=== PATIENT | male | born 1950 | race Caucasian/White ===

== ENCOUNTER 2016-07-20 08:30 | Inpatient (IN) | payer MEDICARE ==
[~2016-07-20] VITALS: Ht 182.9 cm; Wt 125.0 kg
[2016-07-20] VITALS (20 sets, daily range): BP systolic 100–192; BP diastolic 65–116; PULSE 79–101; RESP 17–24; TEMP 97.9–98.6; O2SAT 76–97
[~2016-07-20 08:30] MED LIST: ALLO300T2 PO; ASPI-110 PO; BACL10TA PO; CALC250 PO; CARV3.12 PO; ESCI10TA PO; FISH100020 PO; GABA100C4 PO; HOSPITAL BED SEMI; HYDR-3583 PO; LISI10TA3 PO; NYST15T TOPICAL; PRAV10TA PO; THERM PO; TIZA4CAP3 PO
[2016-07-20] MEDS ORDERED: PROT40TA PO (09:06)
[2016-07-20] MEDS ORDERED: methylPREDNISolone SOD SUCC 125 MG/2 ML VIAL IVP ONE (09:15)
[2016-07-20] MEDS: SODIUM CHLORIDE 0.9% FLUSH 5 ML FLUSH IVF PRN ×2 (09:24→20:50)
[2016-07-20 09:27] LABS: AUTOMATED NEUTROPHIL # 8.2 TH/MM3 (1.8-7.7); BASOPHIL % 0.5 % (0.0-2.0); EOSINOPHIL # 0.4 TH/MM3 (0-0.4); EOSINOPHIL % 3.5 % (0.0-4.0); HEMATOCRIT 42.9 % (39.0-51.0); HEMO FLAGS DIFF FINAL; LYMPH % 8.9 % (9.0-44.0); LYMPHOCYTE # 0.9 TH/MM3 (1.0-4.8); MEAN CELL VOLUME 83.8 FL (80.0-100.0); MEAN CORPUSCULAR HGB CONC 32.2 % (32.0-36.0); MONO % 8.4 % (0.0-8.0); NEUT % 78.7 % (16.0-70.0); PLATELET COUNT 236 TH/MM3 (150-450); RED BLOOD COUNT 5.11 MIL/MM3 (4.50-5.90); RED CELL DISTRIBUTION WIDTH 18.5 % (11.6-17.2); WHITE BLOOD COUNT 10.5 TH/MM3 (4.0-11.0)
[2016-07-20] MEDS: RESP: ALBUTEROL 2.5 MG/IPRATROPIUM 0.5 MG NEB (SCH) INH ×2 (09:36→09:37)
[2016-07-20 09:41] LABS: PROTHROMBIN TIME - PATIENT 11.3 SEC (9.8-11.6)
[2016-07-20 09:42] LABS: ANION GAP 8 MEQ/L (5-15); APTT (PATIENT) 25.7 SEC (24.3-30.1); AST (GOT) 31 U/L (15-37); BICARBONATE 26.6 MEQ/L (21.0-32.0); BLOOD UREA NITROGEN 19 MG/DL (7-18); CHLORIDE 105 MEQ/L (98-107); GLOMERULAR FILTRATION RATE 67 ML/MIN (>89); POTASSIUM 4.7 MEQ/L (3.5-5.1); SODIUM (NA) 140 MEQ/L (136-145)
--- NOTE | 2016-07-20 09:44 | RADRPT ---
EXAM DATE/TIME: 07/20/2016 09:34 [facility] COMPARISON: CHEST SINGLE AP, August 03, 2015, 15:21. INDICATIONS : Patient has been short of breath for two days. MEDICAL HISTORY : Hypertension. SURGICAL HISTORY : None. ENCOUNTER: Initial ACUITY: 2 days PAIN SCORE: 0/10 LOCATION: Chest FINDINGS: The heart size is mildly enlarged. There is a mild right pleural effusion. There is some increased density at the right base. The left lung is clear. The patient has surgical hardware in the mid-tho racic spine. CONCLUSION: 1. Mild right pleural effusion. There is some accompanying atelectasis or consolidation at the righ t lung base. 2. Enlargement of the cardiac silhouette. Devante Peña MD on July 20, 2016 at 9:40 Board Certified Radiologist. This report was verified electronically.
[2016-07-20 09:46] LABS: ALKALINE PHOSPHATASE 49 U/L (45-117); ALT (GPT) 26 U/L (12-78); TOTAL BILIRUBIN ADULT 0.8 MG/DL (0.2-1.0)
[2016-07-20 09:56] LABS: CREATINE KINASE 285 U/L (39-308)
[2016-07-20 10:09] LABS: CKMB 6.2 NG/ML (0.5-3.6)
[2016-07-20] MEDS ORDERED: LEVOFLOXACIN 750 MG PREMIX INJ 150 ML IV ONE (10:15)
[2016-07-20] MEDS ORDERED: ASPIRIN 81 MG CHEW TAB CHEW ONE (10:15)
[2016-07-20] MEDS ORDERED: cefTRIAXone INJ 1,000 MG in SODIUM CHLORIDE 0.9% INJ 100 ML IV ONE (10:15)
[2016-07-20] MEDS ORDERED: ACETAMINOPHEN/HYDROcodone 325 MG/10 MG TAB PO PRN (11:30)
[2016-07-20] MEDS ORDERED: BACLOFEN 10 MG TAB PO PRN (11:30)
[2016-07-20] MEDS ORDERED: ENOXAPARIN SODIUM 40 MG/0.4 ML SYRINGE SQ SCH (14:00)
--- NOTE | 2016-07-20 14:56 | PD ---
HPI Chief Complaint: Respiratory Symptoms Time Seen by Provider: 08:47 Travel History International Travel<30 days: No Contact w/Intl Traveler<30days: No Traveled to known affect area: No History of Present Illness HPI Patient is a 65 year old male complaining of SOB. He says he has had SOB on and off for the past 2 months, but it has been worse for the past two days. He says he is unable to lay flat due to SOB. He denies cough, chest pain, fever or chills. He has had some leg swelling on and off, but this is normal for him. 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) Musculoskeletal: Yes (LUMBAR PAIN) Neurologic: Yes (no bilat sensation or movement below umbilicus) Psychiatric: Yes Respiratory: Yes Tetanus Vaccination: Unknown Influenza Vaccination: Yes Past Surgical History Abdominal Surgery: Yes (CHOLECYSTECTOMY; gallbladder removed) AICD: No Arteriovenous Shunt: No Cardiac Surgery: No Ear Surgery: No Endocrine Surgery: No Eye Surgery: Yes (bilateral cataracts) Genitourinary Surgery: No Gynecologic Surgery: No Joint Replacement: No Neurologic Surgery: Yes (T6-T8 Lami; T6-T7 discectomy) Oral Surgery: No Thoracic Surgery: No Other Surgery: Yes Social History Alcohol Use: Yes Tobacco Use: No Substance Use: No Allergies-Medications (Allergen,Severity, Reaction): Coded Allergies: No Known Allergies (Unverified , 07/20/16) Reported Meds & Prescriptions Reported Meds & Active Scripts Active Reported Protonix (Pantoprazole Sodium) 40 Mg Tab 40 Mg PO DAILY Allopurinol 300 Mg Tab 300 Mg PO DAILY Aspirin 81 (Aspirin) 81 Mg Tabdr 81 Mg PO DAILY Baclofen 10 Mg Tab 10 Mg PO BID@0900, 1300 PRN Carvedilol 3.125 Mg Tab 3.125 Mg PO Q12HR Escitalopram (Escitalopram Oxalate) 10 Mg Tab 10 Mg PO DAILY Gabapentin 100 Mg Cap 200 Mg PO BID Hydrocodone-Acetaminophen 10-325 mg Tab 1-2 Tab PO Q4H PRN Lisinopril 10 Mg Tab 10 Mg PO BID Nystatin Topical (Nystatin) 100,000 unit/gm Cream 1 Applic TOPICAL TID Tizanidine (Tizanidine HCl) 4 Mg Cap 4 Mg PO HS Review of Systems Except as stated in HPI: all other systems reviewed are Neg General / Constitutional: No: Fever HENT: No: Headaches, Lightheadedness Cardiovascular: No: Chest Pain or Discomfort Respiratory: Positive: Shortness of Breath, No: Cough Gastrointestinal: No: Nausea, Vomiting Musculoskeletal: Positive: Edema, No: Pain Skin: No Rash, No Change in Pigmentation Neurologic: No: Weakness, Dizziness Physical Exam Narrative GENERAL: Awake and alert, in no acute distress. SKIN: Warm and dry. HEAD: Atraumatic. Normocephalic. EYES: Pupils equal and round. No scleral icterus. ENT: Mucous membranes pink and moist. NECK: Trachea midline. No JVD. CARDIOVASCULAR: Regular rate and rhythm. No murmur appreciated. RESPIRATORY: No accessory muscle use. Decreased breath sounds throughout both lungs, occasional wheezes. Breath sounds equal bilaterally. GASTROINTESTINAL: Abdomen soft, non-tender, nondistended. MUSCULOSKELETAL: No obvious deformities. No clubbing. No cyanosis. NEUROLOGICAL: Awake and alert. No obvious cranial nerve deficits. Motor grossly within normal limits. Normal speech. PSYCHIATRIC: Appropriate mood and affect; insight and judgment normal. Data Data Last Documented VS Vital Signs Date Time Temp Pulse Resp B/P Pulse Ox O2 Delivery O2 Flow Rate FiO2 07/20/16 10:26 90 22 168/102 93 Nasal Cannula 4 07/20/16 09:07 98.3 Orders Complete Blood Count With Diff (07/20/16 08:55) Comprehensive Metabolic Panel (07/20/16 08:55) B-Type Natriuretic Peptide (07/20/16 08:55) Act Partial Throm Time (Ptt) (07/20/16 08:55) Prothrombin Time / Inr (Pt) (07/20/16 08:55) Ckmb (Isoenzyme) Profile (07/20/16 08:55) Troponin I (07/20/16 08:55) Iv Access Insert/Monitor (07/20/16 08:55) Electrocardiogram (07/20/16 08:55) Ecg Monitoring (07/20/16 08:55) Oximetry (07/20/16 08:55) Oxygen Administration (07/20/16 08:55) Chest, Single Ap (07/20/16 08:55) Sodium Chloride 0.9% Flush (Ns Flush) (07/20/16 09:00) Methylprednisolone So Succ Inj (Solumedr (07/20/16 09:15) Albuterol-Ipratropium Neb (Duoneb Neb) (07/20/16 09:15) CKMB (07/20/16 09:10) CKMB% (07/20/16 09:10) Aspirin Chew (Aspirin Chew) (07/20/16 10:15) Ceftriaxone Inj (Rocephin Inj) (07/20/16 10:15) Levofloxacin 750 Mg Premix Inj (Levaquin (07/20/16 10:15) Admit Order (Ed Use Only) (07/20/16 ) Labs Laboratory Tests Test 07/20/16 09:10 White Blood Count 10.5 TH/MM3 Red Blood Count 5.11 MIL/MM3 Hemoglobin 13.8 GM/DL Hematocrit 42.9 % Mean Corpuscular Volume 83.8 FL Mean Corpuscular Hemoglobin 27.0 PG Mean Corpuscular Hemoglobin 32.2 % Concent Red Cell Distribution Width 18.5 % Platelet Count 236 TH/MM3 Mean Platelet Volume 8.7 FL Neutrophils (%) (Auto) 78.7 % Lymphocytes (%) (Auto) 8.9 % Monocytes (%) (Auto) 8.4 % Eosinophils (%) (Auto) 3.5 % Basophils (%) (Auto) 0.5 % Neutrophils # (Auto) 8.2 TH/MM3 Lymphocytes # (Auto) 0.9 TH/MM3 Monocytes # (Auto) 0.9 TH/MM3 Eosinophils # (Auto) 0.4 TH/MM3 Basophils # (Auto) 0.0 TH/MM3 CBC Comment DIFF FINAL Differential Comment Prothrombin Time 11.3 SEC Prothromb Time International 1.0 RATIO Ratio Activated Partial 25.7 SEC Thromboplast Time Sodium Level 140 MEQ/L Potassium Level 4.7 MEQ/L Chloride Level 105 MEQ/L Carbon Dioxide Level 26.6 MEQ/L Anion Gap 8 MEQ/L Blood Urea Nitrogen 19 MG/DL Creatinine 1.10 MG/DL Estimat Glomerular Filtration 67 ML/MIN Rate Random Glucose 103 MG/DL Calcium Level 8.4 MG/DL Total Bilirubin 0.8 MG/DL Aspartate Amino Transf 31 U/L (AST/SGOT) Alanine Aminotransferase 26 U/L (ALT/SGPT) Alkaline Phosphatase 49 U/L Total Creatine Kinase 285 U/L Creatine Kinase MB 6.2 NG/ML Troponin I 0.22 NG/ML B-Type Natriuretic Peptide 176 PG/ML Total Protein 7.2 GM/DL Albumin 3.1 GM/DL MDM Medical Decision Making Medical Screen Exam Complete: Yes Emergency Medical Condition: Yes Interpretation(s) ECG shows normal sinus rhythm at 90, no ST elevation or depression. Differential Diagnosis Pneumonia versus PE versus ACS versus CHF Narrative Course Patient is a 65-year-old male comes in complaining of shortness of breath. His oxygen saturation on room air was found to be in the high 70s, low 80s. Patient started on nasal cannula with improvement of oxygen saturation. Exam shows occasional wheezing and decreased breath sounds. IV established and labs sent. Labs show an elevated troponin to 0.22. Patient given aspirin. CTA of the chest performed shows large PE. Patient started on heparin. Patient also treated with antibiotics for possible consolidation seen on chest x -ray. Patient admitted for further management. Diagnosis Primary Impression: PE (pulmonary thromboembolism) Additional Impressions: SOB (shortness of breath) NSTEMI (non-ST elevated myocardial infarction) Admitting Information Admitting Physician Requests: Admit Suzanne Mendoza MD Jul 20, 2016 14:56
[2016-07-20 15:08] LABS: BACTERIA, URINE FEW /hpf; BLOOD, URINE SMALL (NEG); GLUCOSE,URINE NEG (NEG); KETONE, URINE 10 mg/dL (NEG); MUCUS URINE MANY /lpf (OCC); SQUAMOUS EPITHELIAL CELL URINE <1 /hpf (0-5); URINE COLOR YELLOW (YELLW/STRAW)
[2016-07-20 15:13] LABS: COMMENT (UR) CATH-CULTURE IND; CULTURE IF INDICATED CATH CULTURE IND; NITRITE,URINE POS (NEG)
[2016-07-20] MEDS ORDERED: IOHEXOL 350 MG/ML 10 ML VIAL (for RAD DIAG) IV ONE (15:18)
--- NOTE | 2016-07-20 15:50 | RADRPT ---
EXAM DATE/TIME: 07/20/2016 15:17 [facility] COMPARISON: CT THORACIC SPINE W/O CONTRAST, June 21, 2015, 10:33. MRI THORACIC SPINE W/O CONTRAST, June 24, 2015, 12:15. CT THORACIC SPINE W/O CONTRAST, June 27, 2015, 10:45. INDICATIONS : Short of breath x 2 days. IV CONTRAST: 80 cc Omnipaque 350 (iohexol) IV RADIATION DOSE: 23.41 CTDIvol (mGy) MEDICAL HISTORY : Cardiovascular disease. Hypertension. SURGICAL HISTORY : Appendectomy. Cholecystectomy. ENCOUNTER: Initial ACUITY: 2 days PAIN SCALE: 4/10 LOCATION: chest TECHNIQUE: Volumetric scanning of the chest was performed using a pulmonary embolism protocol MIP images were reconstructed. Using automated exposure control and adjustment of the mA and/or kV acco rding to patient size, radiation dose was kept as low as reasonably achievable to obtain optimal diag nostic quality images. FINDINGS: Moderate interstitial edema is present. There is a small pleural effusion on the right with minimal consolidative changes in the right base. There is no axillary adenopathy. Bilateral central pulmonary emboli are present. Transpedicular fixation causes moderate artifact. The exact position of the pedicle screws is hard to ascertain because of the artifact. CONCLUSION: 1. Bilateral pulmonary emboli. 2. Consolidative changes in the right base with right pleural effusion. Tim Avalos MD FACR on July 20, 2016 at 15:39 Board Certified Radiologist. This report was verified electronically.
[2016-07-20] MEDS ORDERED: HEPARIN SODIUM - IV 10,000 UNITS/10 ML VIAL IV ONE (16:00)
[2016-07-20] MEDS: HEPARIN-D5W INJ 250 ML IV SCH ×2 (16:25→16:29)
[2016-07-20 16:42] LABS: CREATINE KINASE 260 U/L (39-308)
[2016-07-20 16:54] LABS: CKMB 6.8 NG/ML (0.5-3.6)
--- NOTE | 2016-07-20 18:07 | HHI.PR ---
Objective Objective Results - Vital Signs Date Time Temp Pulse Resp B/P Pulse Ox O2 Delivery O2 Flow Rate FiO2 07/20/16 17:02 78 18 156/80 97 Nasal Cannula 4 07/20/16 15:01 79 18 154/72 97 Nasal Cannula 4 07/20/16 12:18 86 18 150/77 93 Room Air 07/20/16 10:26 90 22 168/102 93 Nasal Cannula 4 07/20/16 09:57 94 Nasal Cannula 4.00 07/20/16 09:26 93 Nasal Cannula 4 07/20/16 09:07 98.3 89 160/85 93 Nasal Cannula 4 07/20/16 08:51 18 92 Nasal Cannula 4 07/20/16 08:50 91 Nasal Cannula 4 07/20/16 08:39 101 18 148/75 76 07/20/16 08:34 98.1 95 17 132/77 80 Result Diagram: 07/20/16 0910 07/20/16 0910 Other Results Laboratory Tests Test 07/20/16 07/20/16 07/20/16 09:10 14:55 15:30 White Blood Count 10.5 Red Blood Count 5.11 Hemoglobin 13.8 Hematocrit 42.9 Mean Corpuscular Volume 83.8 Mean Corpuscular Hemoglobin 27.0 Mean Corpuscular Hemoglobin 32.2 Concent Red Cell Distribution Width 18.5 Platelet Count 236 Mean Platelet Volume 8.7 Neutrophils (%) (Auto) 78.7 Lymphocytes (%) (Auto) 8.9 Monocytes (%) (Auto) 8.4 Eosinophils (%) (Auto) 3.5 Basophils (%) (Auto) 0.5 Neutrophils # (Auto) 8.2 Lymphocytes # (Auto) 0.9 Monocytes # (Auto) 0.9 Eosinophils # (Auto) 0.4 Basophils # (Auto) 0.0 CBC Comment DIFF FINAL Differential Comment Prothrombin Time 11.3 Prothromb Time International 1.0 Ratio Activated Partial 25.7 Thromboplast Time Sodium Level 140 Potassium Level 4.7 Chloride Level 105 Carbon Dioxide Level 26.6 Anion Gap 8 Blood Urea Nitrogen 19 Creatinine 1.10 Estimat Glomerular Filtration 67 Rate Random Glucose 103 Calcium Level 8.4 Total Bilirubin 0.8 Aspartate Amino Transf 31 (AST/SGOT) Alanine Aminotransferase 26 (ALT/SGPT) Alkaline Phosphatase 49 Total Creatine Kinase 285 260 Creatine Kinase MB 6.2 6.8 Troponin I 0.22 0.16 B-Type Natriuretic Peptide 176 Total Protein 7.2 Albumin 3.1 Urine Color YELLOW Urine Turbidity HAZY Urine pH 6.0 Urine Specific [place] 1.027 Urine Protein 30 Urine Glucose (UA) NEG Urine Ketones 10 Urine Occult Blood SMALL Urine Nitrite POS Urine Bilirubin NEG Urine Urobilinogen 2.0 Urine Leukocyte Esterase LARGE Urine RBC 9 Urine WBC 122 Urine Squamous Epithelial <1 Cells Urine Bacteria FEW Urine Mucus MANY Microscopic Urinalysis Comment CATH-CULTURE IND Date/Time Procedure Status Source Growth 07/20/16 14:55 Urine Culture Received Urine Clean Catch Pending Physical Exam Physical Exam pt IS SEEN & EXAMINED D/W PT & HIS AT BEDSIDE D/W DR MEDINA D/W DAVID ACUTE PE ELEVATED TROP HTN MORBID OBESITY B/L LOWER EXT PARALYSIS/ W/C BOUND O2 IV HEPARIN TX OPTIONS WERE D/W PT & HIS , COUMADIN VS NEWER NOVEL AC WERE D/W R/B OF EACH WERE D/W . THEY WANT TO THINK ABOUT IT. SEE ORDERS Darlene Vaughan MD Jul 20, 2016 18:07
--- NOTE | 2016-07-20 18:20 | EKG ---
Date Performed: 07/20/2016 Time Performed: 09:27:43 PTAGE: 65 years EKG: Supraventricular rhythm of uncertain mechanism, as theren is Probably limb lead reversal. R epeat tracing is advised. POSSIBLE RIGHT VENTRICULAR HYPERTROPHY MODERATE T-WAVE ABNORMALITY, CONSIDE R INFERIOR ISCHEMIA. When compared to previous tracing, the patient has developed Marked right axis d eviation, that again is likely secondary to limb Lead reversal. Recomment repeat tracing to assess tr acing more accurately. ABNORMAL ECG PREVIOUS TRACING : 07/06/2015 07.32.22 DOCTOR: Prisca Carlos Interpretating Date/Time 07/20/2016 18:20:35
[2016-07-20] MEDS: RESP: ALBUTEROL 2.5 MG/IPRATROPIUM 0.5 MG NEB (SCH) NEB (20:46)
[2016-07-20] MEDS: FUROSEMIDE 40 MG/4 ML VIAL IV PUSH SCH (20:47)
[2016-07-20] MEDS: GABAPENTIN 100 MG CAP PO SCH (20:49)
[2016-07-20] MEDS: LISINOPRIL 10 MG TAB PO SCH (20:50)
[2016-07-20] MEDS: POTASSIUM CHLORIDE 20 MEQ CONTROLLED RELEASE TAB PO SCH (20:50)
[2016-07-20] MEDS: CARVEDILOL 3.125 MG TAB PO SCH (20:50)
--- NOTE | 2016-07-20 20:56 | MB ---
cc: JONATHAN MEDINA DO DATE OF CONSULTATION 07/20/2016 REASON FOR CONSULTATION Elevation of troponin, pleural effusion. HISTORY OF PRESENT ILLNESS Harry Martinez is a pleasant 65-year-old male who presents to [facility] Emergency Room on July 20, 2016 with the complaint of shortness of breath. He states that this shortness of breath has been slightly more over the past 1-2 months but over the past 2-3 days it has been very significant. He states he is unable to lie flat due to his shortness of breath. He denies cough, chest pain, fevers or chills at this time. He does have some lower extremity swelling but this is somewhat normal for him. Of note, he has a history of lower extremity paralysis and is mostly bed and electrical chair bound. Upon arrival he was found to have a pleural effusion and labs showed an elevation of his troponin. I was called due to his elevation of troponin and further recommendations. PAST MEDICAL HISTORY 1. Previous non-ST elevation myocardial infarction thought to be due secondary to septic shock. 2. Anxiety. 3. Hypertension. 4. Hyperlipidemia. 5. Gastroesophageal reflux disease. 6. 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 7. Hypertension. PAST SURGICAL HISTORY 1. Cholecystectomy. 2. Bilateral cataracts. 3. T6-T8 laminectomy, T6-T7 diskectomy. ALLERGIES NO KNOWN DRUG ALLERGIES. MEDICATIONS 1. Lisinopril 10 mg b.i.d. 2. Gabapentin 200 mg b.i.d. 3. Citalopram 10 mg daily. 4. Allopurinol 300 mg daily. 5. Coreg 3.125 mg every 12 hours. 6. Tizanidine 4 mg every night. 7. Baclofen 10 mg b.i.d. as needed. 8. Aspirin 81 mg daily. 9. Hydrocodone / acetaminophen 10 / 325 every 4 hours as needed for pain. 10. Protonix 40 mg daily. FAMILY HISTORY Denies premature coronary artery disease or sudden cardiac within the family. SOCIAL HISTORY The patient drinks socially. Denies tobacco or drug abuse. REVIEW OF SYSTEMS 14-systems were reviewed and the emergency room records and above pertinent positives and negatives above, otherwise negative. PHYSICAL EXAMINATION VITAL SIGNS: Temperature 98.3, heart rate 78, blood pressure 156/80, respirations 18, pulse ox 97% on 4 liters. GENERAL: In general the patient appears well in no acute distress. Alert, awake and oriented x3. HEENT: Extraocular muscles intact. Mucous membranes moist. NECK: Supple. No JVD at 45 degrees. No carotid bruits heard bilaterally. Carotid upstroke is brisk in nature. CARDIOVASCULAR: Heart is regular rate and rhythm. Positive first and second heart sounds with a 1/6 holosystolic murmur noted at the apex. LUNGS: The lungs have decreased breath sounds at bilateral bases but no overt wheezes, rales or rhonchi. ABDOMEN: Soft, nontender, nondistended. No organomegaly noted. EXTREMITIES: Show trace to 1+ pitting edema bilaterally. NEUROLOGICAL: Bilateral lower extremity paralysis. OSTEOPATHIC: Mild kyphoscoliosis. No lordosis or paraspinal tender ports. SKIN: Warm and dry and intact. LABORATORY FINDINGS Hemoglobin 13.8, hematocrit 42.9, platelets 236. Potassium 4.7, BUN 19, creatinine 1.1. Troponin 0.22. BNP 176. Electrocardiogram (July 20, 2016 at 0927) probable normal sinus rhythm, possible right ventricular hypertrophy, mild T-wave changes inferiorly, cannot rule out ischemia. IMPRESSION 1. Elevated troponin, possible type 1 versus type 2 non-ST elevation myocardial infarction. 2. Shortness of breath. 3. Pleural effusion. 4. Lower extremity paralysis secondary to previous surgery. 5. History of non-ST elevation myocardial infarction thought to be due to septic shock. 6. Hypertension. RECOMMENDATIONS 1. Tim does appear to have an elevation of his troponins although my concern is more with his extensive shortness of breath and tachycardia on arrival. 2. My main concern is with his paralysis and the possibility of pulmonary embolus. I discussed this with the ER physician and she is attempting to get further IV access for him to undergo a CT angiogram to rule out PE. 3. We will check a 2-D echocardiogram to look at his overall left ventricular function, cardiac structure and possible valvopathies. 4. I held off of placing him on a heparin drip at this time, if he does have pulmonary embolus or troponin elevation then he will most likely need further anticoagulation. Further recommendations will be made based on hospital course. Thank you for allowing me to see Harrynisha Martinez. If there are any questions please do not hesitate to call. Jonathan Medina DO VGP/KK /4:49 PM /7:37 PM MTDD
[2016-07-20] MEDS ORDERED: HEPARIN SODIUM - IV 10,000 UNITS/10 ML VIAL IV PRN ×2 (22:00)
--- NOTE | 2016-07-20 22:01 | RADRPT ---
EXAM DATE/TIME: 07/20/2016 21:27 [facility] COMPARISON: US LEG BILATERAL VENOUS DOPPLER, July 05, 2015, 9:24. INDICATIONS : Bilateral leg swelling. MEDICAL HISTORY : Myocardial infarction. Hypertension. Hypercholesterolemia. Peripheral neuropathy. Chest pain. GERD. F ibromyalgia. Osteoarthritis. Gout. Anxiety. Hay fever. SURGICAL HISTORY : Cholecystectomy.Appendectomy. Bilateral cataract extraction. T6-T8 Laminectomy. T6-T7 Discectomy. Sy novial cyst removed from spine. Blood transfusions. ENCOUNTER: Subsequent ACUITY: 1 day PAIN SCORE: 0/10 LOCATION: Bilateral leg. TECHNIQUE: Venous ultrasound of the left and right leg was performed from the inguinal ligament to the proximal calf. Real-time, color Doppler and spectral tracing, compression and augmentation techniques were us ed. FINDINGS: RIGHT LEG: There is normal compressibility of the deep venous system from the inguinal region to the proximal ca lf. No echogenic clot is seen in the lumen of the common femoral, femoral, popliteal, and posterior tibial veins. There is a normal response of the venous system to proximal and distal augmentation an d respiration. LEFT LEG: There is normal compressibility of the deep venous system from the inguinal region to the proximal ca lf. No echogenic clot is seen in the lumen of the common femoral, femoral, and popliteal veins. Ther e is nonocclusive deep venous thrombosis in the left peroneal vein. The anterior and posterior tibial veins are occluded and noncompressible. CONCLUSION: 1. Deep venous thrombosis in the left peroneal, anterior and posterior tibial veins. 2. The right deep venous system is patent. Raghavendra Michael MD on July 20, 2016 at 21:56 Board Certified Radiologist. This report was verified electronically.
[2016-07-20 23:14] LABS: APTT (PATIENT) 82.2 SEC (24.3-30.1)
[2016-07-21] VITALS (32 sets, daily range): BP systolic 86–154; BP diastolic 56–96; PULSE 82–98; RESP 17–20; TEMP 97.7–98.4; O2SAT 92–97
[2016-07-21] MEDS: RESP: ALBUTEROL 2.5 MG/IPRATROPIUM 0.5 MG NEB (SCH) NEB ×4 (03:48→20:44)
[2016-07-21] MEDS: HEPARIN-D5W INJ 250 ML IV SCH (05:41)
[2016-07-21 06:15] LABS: APTT (PATIENT) 74.9 SEC (24.3-30.1)
--- NOTE | 2016-07-21 06:54 | MB ---
cc: WILD DE LA ROSA MD DATE OF CONSULTATION 07/20/[address] Vaughan REASON FOR CONSULTATION Pulmonary embolism. Shortness of breath. HISTORY OF PRESENT ILLNESS Mr. Martinez is a pleasant 65-year-old male with history of cord compression status post T6-T8 laminectomy and T6-T7 diskectomy. He had rehab at [place] and he is at home. Now he has lower extremity inability to move. He has bladder and urinary incontinence. His does catheterization and he has a Bernadine lift at home. The patient has been having increasing shortness of breath off and on but over the last two days he has two episodes of shortness of breath that he could not take a breath. It lasted about 20 minutes. He did not have any chest pain. No dizziness. No palpitation at that time. Because of the worsening of the shortness of breath, he came to the hospital he had CTA of the chest done which shows that he has bilateral pulmonary emboli. He has consolidative changes in the right lung base with small pleural effusion. The patient is admitted for further management. He feels much more comfortable now, no chest pain. He does feel a band-like sensation across his abdomen. His workup showed WBC count of 10.5, hemoglobin 13.8, hematocrit 42.9, MCV 83.8, platelet count 236. Sodium 140, potassium 4.7, chloride 104, CO2 26, BUN 19, creatinine 1.0. PAST MEDICAL HISTORY 1. Significant for history of paralysis below his waist, status post T6-T8 laminectomy and T6-T7 diskectomy. 2. History of possible IA. 3. History of cataract surgery. CURRENT MEDICATIONS 1. Rocephin 1 gram a day. 2. Allopurinol 300 mg a day. 3. Aspirin 81 mg a day. 4. Lexapro 10 mg a day. 5. Protonix 40 mg a day. 6. Heparin 5000 units. 7. Coreg 3.125 mg q. 12 hours. 8. Neurontin 200 mg twice a day. 9. Lisinopril 10 mg a day. 10. Tizanidine 4 mg at nighttime. 11. Lasix 40 mg a day. 12. Albuterol/Atrovent nebulizer treatment. 13. He is on a heparin drip. ALLERGIES No known drug allergies. SOCIAL HISTORY He is retired. He had remote history of smoking. No alcohol abuse. FAMILY HISTORY He is for 46 years. He had one daughter who committed suicide. REVIEW OF SYSTEMS The patient is bed-bound. No prior history of DVT or pulmonary embolism. No bleeding from any site. No seizure, stroke or epilepsy. PHYSICAL EXAMINATION GENERAL: A well-built, well-nourished male, mildly short of breath. VITAL SIGNS: Blood pressure 156/80, heart rate 70, respirations 18. Temperature 97. HEENT EXAMINATION: Pupils are equal and react to light. Oral mucosa, nasal mucosa normal. NECK: Supple. JVP not raised. CHEST: Equal. Bilateral slightly decreased breath sounds at the bases. CV: S1 and S2 normal. ABDOMEN: Soft, nondistended. Bowel sounds are present. EXTREMITIES: No edema. No calf tenderness. SUMMER INTERN: He is alert, oriented x 3, unable to move lower extremities. IMPRESSION 1. Bilateral pulmonary embolism. 2. Paralysis below his waist. 3. Urinary and bladder incontinence. 4. Hypertension. PLAN I have discussed with the patient and his , he is on heparin drip, he will need long-term anticoagulation probably lifelong. I discussed with him Coumadin and newer anticoagulation. They are leaning towards newer anticoagulation and we will check with insurance coverage and start him on newer anticoagulation. I have discussed with them the side effects of anticoagulation including severe bleeding, bleeding stroke and which they understand well. His pleural effusion is small. We will monitor it, continue his antibiotic. Further treatment will depend on his course in the hospital. Thank you, Dr. Vaughan, for this consult. MD LEONOR Mchugh/SSB /6:36 PM /5:36 AM
[2016-07-21] MEDS: LISINOPRIL 10 MG TAB PO SCH ×2 (07:59→20:41)
[2016-07-21] MEDS: PANTOPRAZOLE SOD 40 MG DELAYED RELEASE TAB PO SCH (07:59)
[2016-07-21] MEDS: FUROSEMIDE 40 MG/4 ML VIAL IV PUSH SCH ×2 (07:59→18:06)
[2016-07-21] MEDS: GABAPENTIN 100 MG CAP PO SCH ×2 (08:00→20:41)
[2016-07-21] MEDS: POTASSIUM CHLORIDE 20 MEQ CONTROLLED RELEASE TAB PO SCH ×2 (08:00→20:41)
[2016-07-21] MEDS: CARVEDILOL 3.125 MG TAB PO SCH ×2 (08:00→20:41)
[2016-07-21] MEDS: ALLOPURINOL 300 MG TAB PO SCH (08:00)
[2016-07-21] MEDS: ESCITALOPRAM OXALATE 10 MG TAB PO SCH (08:00)
--- NOTE | 2016-07-21 08:34 | MH ---
cc: TIFFANIE VAUGHAN MD DATE OF ADMISSION 07/20/2016 DATE OF 1950 CHIEF COMPLAINT Shortness of breath. Travel in the last 30 days, none. HISTORY OF PRESENT ILLNESS This is a pleasant 65-year-old morbidly obese male who noted some shortness of breath for the last few months. He states that the shortness of breath waxed and waned, would seem to be worse at night or when laying flat, but during the daytime he could tolerate. He had no problems tolerating it and his intensity was less. Over the past 2 days the shortness of breath has tended to get worse and the night before admission he could not lay flat at all due to the shortness of breath. He also complains of some stuffiness in his head. The patient denies any chest pain. No nausea no vomiting. No fever, no chills. No constipation. No diarrhea and no headache. The patient does complain of some mild epigastric tightness off and on and it is seems to be worse when he lays flat. The patient has no complaints of incontinence or dysuria. The patient was in the hospital this past year and had several surgeries related to his back. Since then he has not been able to walk. He does have minimal movement in his lower extremities bilateral, but he is unable to bear weight, to stand up or to ambulate. PAST MEDICAL HISTORY Medical history includes: 1. Anxiety disorder. 2. Non-ST elevation myocardial infarction and septic shock back in June of 2015. 3. Hypertension. 4. Gastroesophageal reflux disease. 5. Sinusitis. 6. Heparin-induced thrombocytopenia. 7. Degenerative disk disease. 8. Chronic pain. 9. Bilateral lower extremity weakness and paralysis since June of 2015. PAST SURGICAL HISTORY 1. Cholecystectomy. 2. Bilateral cataracts. 3. Disk surgery from T6-T8, laminectomy and diskectomy. ALLERGIES No known. MEDICATIONS Reported: 1. Protonix. 2. Allopurinol. 3. Aspirin. 4. Baclofen. 5. Coreg. 6. Celexa. 7. Gabapentin. 8. Hydrocodone. 9. Lisinopril. 10. Nystatin. 11. Tizanidine. SOCIAL HISTORY The patient is , currently lives at home with his . Tobacco abuse was only as a child but has not smoked in many years. No alcohol use. No illicit drug use. FAMILY HISTORY Cancer and heart disease. REVIEW OF SYSTEMS A 12-point view was done. Positives noted shortness of breath, stuffy head when lying flat, epigastric tightness, coolness to touch of the right foot and lower leg. Paralysis lower extremities. Other systems negative or unremarkable. PHYSICAL EXAMINATION VITAL SIGNS: Temperature is 98.1, pulse is 78, respirations 18, blood pressure 156/80, O2 sat 97 on 4 liters nasal cannula. GENERAL: Morbidly obese white male looks older than his stated age, resting on a stretcher, alert, cooperative and oriented. A good historian. HEENT: Atraumatic, normocephalic. PERRL at 3. Mucous membranes are pink and moist. Oropharynx has thick yellow coating on tongue but tongue is midline. NECK: Thick, supple. CARDIOVASCULAR: Heart sounds are distant S1-S2. Regular rate and rhythm. Trace to 1+ edema in his lower extremities. Cool to touch right lower foot. Left foot warmer. Weak pedal pulses. LUNGS: Decreased and diminished breath sounds posteriorly. Anteriorly essentially clear. No wheezes or rhonchi. ABDOMEN: Obese, round, soft, nontender, active bowel sounds. MUSCULOSKELETAL: He moves his upper extremities with purpose. He has equal hand lumber loader. He has minimal movement to command of his lower extremities. He can pull his legs up approximately 2 inches. NEUROLOGICAL: He is alert and oriented, a good historian. Noted weakness and paralysis in his lower extremities. PSYCHIATRIC: Appropriate mood and affect. DIAGNOSTIC DATA WBC count 10.5, RBC 5.11, hemoglobin 13.8, hematocrit 42.9, platelet count 236. RDW 18.5. Neutrophil auto count 78.7, lymphocytes 8.9, monocyte 8.4. PT/INR 1.0. Chemistry, sodium 140, potassium 4.7, chloride 105, carbon dioxide 26.6, amnion gap 8. BUN 19, creatinine 1.1. GFR of 67, random glucose 103, calcium 8.4. Total bilirubin 0.8. CK-MB 6.2, second CK MB 6.8. Troponin 0.22, second troponin 0.16. BNP 176. Albumin 3.1, total protein 7.2. Urine, yellow, hazy, pH is 6.0, specific gravity 1.020, protein 30. Negative glucose and bilirubin. Positive for ketones. Small amount occult blood. Positive for nitrites. Large amount of leukocyte esterase. Multiple bacteria and many mucous. Urine culture is pending. IMAGING Diagnostic data, chest x-ray shows heart mildly enlarged, right mild pleural effusion, density over the right base. Left lung is clear. CT angiography shows bilateral pulmonary emboli, bilateral central pulmonary emboli, consolidative changes in the right base with right pleural effusion. ASSESSMENT/PLAN 1. Bilateral central pulmonary emboli. 2. Probable UTI. 3. Mild protein calorie malnutrition. 4. Hypertension. 5. Cardiovascular disease. 6. Chest pain, rule out myocardial infarction. 7. Bilateral lower extremity paralysis. 8. Chronic pain. Our plan is to admit inpatient status. The patient will have his vital signs monitored at least q.4h and as needed. We will monitor his labs for any abnormal and treat accordingly. In the emergency room the patient had an aspirin chew 324 mg once, IV prednisone 125 mg IV push, Duoneb. He had a dose of Rocephin and a dose of Levaquin. O2 at 2 liters or 2-6 liters p.r.n. we will adjust as patient's needs request. Reconcile the patient's medications. In the ER the patient was placed on DVT prophylaxis. We will consult pulmonary for their expert opinion and assistance with this treatment regimen since the patient is positive for PE. Potassium supplements. IV Lasix. Will wait on the patient's urine culture. The patient has already been treated with IV Rocephin x1. The patient has positive cardiac enzymes, we will consult cardiology for their expert opinion. The patient will be initially monitored in an intensive care setting. This has been explained to him. The preliminary findings have been explained to him and he verbalizes understanding. We will also get an ultrasound of his lower extremities and evaluate his right foot. The patient to my knowledge is full code, full aggressive care and we will follow. Dictated by: RAHUL Valencia MD SY [place]/LOS /4:26 PM /7:33 AM pt IS SEEN & EXAMINED D/W PT & HIS AT BEDSIDE D/W DR MEDINA D/W DAVID ACUTE PE ELEVATED TROP HTN MORBID OBESITY B/L LOWER EXT PARALYSIS/ W/C BOUND O2 IV HEPARIN TX OPTIONS WERE D/W PT & HIS , COUMADIN VS NEWER NOVEL AC WERE D/W R/B OF EACH WERE D/W . THEY WANT TO THINK ABOUT IT. SEE ORDERS Tiffanie Vaughan MD MTDD
--- NOTE | 2016-07-21 08:58 | EC ---
Study Study Date:07/20/2016 STUDY CONCLUSIONS SUMMARY - Procedure narrative: Technically difficult study. Image quality was poor. The study was technically limited due to poor acoustic window availability. - Left ventricle: The cavity size was normal. Wall thickness was increased in a pattern of moderate LVH. There was concentric hypertrophy. Systolic function was normal. The estimated ejection fraction was in the range of 60% to 65%. Doppler parameters are consistent with abnormal left ventricular relaxation (grade 1 diastolic dysfunction). - Right ventricle: Poorly visualized, in minimal views appears to have movement of the free wall and normal appearring in size. If LV function is below 40, please consider prescribing an ACEI or ARB or document rationale for non-use. PROCEDURE DATA STUDY STATUS: Elective. Procedure: Transthoracic echocardiography. Image quality was poor. The study was technically limited due to poor acoustic window availability. Scanning was performed from the parasternal, apical, and subcostal acoustic windows. Study completion: The patient tolerated the procedure well. Transthoracic echocardiography. M-mode, complete 2D, complete spectral Doppler, and color Doppler. Height: Height: 72in. Weight: Weight: 274.4lb. Body mass index: BMI: 37.3kg/m^2. Body surface area: BSA: 2.44m^2. Patient status: Inpatient. CARDIAC ANATOMY LEFT VENTRICLE: The cavity size was normal. Wall thickness was increased in a pattern of moderate LVH. There was concentric hypertrophy. Systolic function was normal. The estimated ejection fraction was in the range of 60% to 65%. Images were inadequate for LV wall motion assessment. Doppler parameters are consistent with abnormal left ventricular relaxation (grade 1 diastolic dysfunction). AORTIC VALVE: Not well visualized. Doppler: There was no stenosis. No significant regurgitation. Valve area: 2.96cm^2(VTI). Indexed valve area: 1.21cm^2/m^2 (VTI). Valve area: 2.99cm^2 (Vmax). Indexed valve area: 1.23cm^2/m^2 (Vmax). Mean gradient: 2mm Hg (S). MITRAL VALVE: The valve appears to be grossly normal. Doppler: There was no evidence for stenosis. Trace to mild regurgitation. LEFT ATRIUM: The atrium was normal in size. RIGHT VENTRICLE: Poorly visualized, in minimal views appears to have movement of the free wall and normal appearring in size. PULMONIC VALVE: Not well visualized. Doppler: No significant regurgitation. TRICUSPID VALVE: Not well visualized. Patient weight: 274.4lb _Ejection fraction:_ 65-75% _Fractional shortening:_ 32% up to 5Kg 5-11.5Kg 11.6-22.9Kg 23-45Kg 45-57Kg Aortic Root 7-13 <17 13-22 17-27 17-27 LA diam 6-13 <23 24-38 33-47 37-40 RVID 10-17 7-15 7-15 7-18 8-17 LVIDd 12-22 <32 24-38 33-47 37-40 LVPW 2-4 3-6 5-7 6-8 7-8 IVS 2-4 3-6 5-7 6-8 7-8 BASIC MEASUREMENTS ADULT NORMAL Left ventricle LV internal dimension, ED, chordal *40.8 mm 43-52 level, PLAX LV internal dimension, ES, chordal 25.4 mm 23-38 level, PLAX Fractional shortening, chordal level, 38 % >29 PLAX LV posterior wall thickness, ED 14.3 mm IVS/LVPW ratio, ED 1.06 <1.3 Ventricular septum Septal thickness, ED 15.1 mm Aorta Root diameter, ED 34 mm Left atrium Anterior-posterior dimension 29 mm Anterior-posterior dimension index 1.19 cm/m^2 <2.2 DOPPLER MEASUREMENTS ADULT NORMAL Aortic valve Peak velocity, S 106 cm/s Mean velocity, S 70.7 cm/s VTI, S 17.6 cm Mean gradient, S 2 mm Hg Valve area, VTI 2.96 cm^2 Valve area index, VTI 1.21 cm^2/m^2 Valve area, Vmax 2.99 cm^2 Valve area index, Vmax 1.23 cm^2/m^2 Mitral valve Peak E-wave velocity 62.9 cm/s Peak A-wave velocity 84.2 cm/s Deceleration time *92 ms 150-230 Peak E/A ratio 0.7 LEGEND: Mean values are shown as u=mean value. Asterisk (*) urena values outside specified normal range. Prepared and signed by Jonathan Kuhn [id number]
[2016-07-21] MEDS ORDERED: ASPIRIN EC 81 MG TABEC PO SCH (09:00)
--- NOTE | 2016-07-21 10:48 | PD.CARD.PN ---
Subjective Subjective Remarks No chest pain, decreased shortness of breath Objective Medications Current Medications Medications (Trade) Dose Ordered Sig/Erna Route Start Time Stop Time Status Last Admin (NS Flush) 2 ml UNSCH PRN IVF 07/20/16 09:00 07/20/16 20:50 (Zyloprim) 300 mg DAILY PO 07/21/16 09:00 07/21/16 08:00 (Ecotrin Ec) 81 mg DAILY PO 07/21/16 09:00 07/21/16 08:00 (Lioresal) 10 mg TID PRN PO 07/20/16 11:30 (Coreg) 3.125 mg Q12HR PO 07/20/16 21:00 07/21/16 08:00 (Lexapro) 10 mg DAILY PO 07/21/16 09:00 07/21/16 08:00 (Neurontin) 200 mg BID PO 07/20/16 21:00 07/21/16 08:00 ([place] 10-325 Mg) 1 tab Q4H PRN PO 07/20/16 11:30 (Prinivil) 10 mg BID PO 07/20/16 21:00 07/21/16 07:59 (Protonix) 40 mg DAILY PO 07/21/16 09:00 07/21/16 07:59 (Zanaflex) 4 mg HS PO 07/20/16 21:00 07/20/16 22:03 (Lasix Inj) 40 mg BID@09,18 IV PUSH 07/20/16 18:00 07/21/16 07:59 Potassium Chloride 20 meq 20 meq Q12HR PO 07/20/16 21:00 07/21/16 08:00 (Rocephin Inj/NS Inj) 100 ml @ 200 mls/hr Q24H IV 07/21/16 11:00 (Heparin Inj) 5,000 units UNSCH PRN IV 07/20/16 22:00 Heparin Sodium (Porcine) 2500 units 2,500 units UNSCH PRN IV 07/20/16 22:00 (Heparin-D5W Inj) 250 ml @ 0 mls/hr TITRATE IV 07/20/16 16:00 07/21/16 05:41 Vital Signs / I&O Vital Signs Date Time Temp Pulse Resp B/P Pulse Ox O2 Delivery O2 Flow Rate FiO2 07/21/16 10:04 97 Nasal Cannula 3.00 07/21/16 08:01 97.9 88 20 140/88 94 07/21/16 06:01 85 07/21/16 05:03 84 07/21/16 04:02 85 07/21/16 03:54 97.7 95 20 144/88 97 07/21/16 03:09 87 07/21/16 02:14 89 07/21/16 01:01 90 07/21/16 00:24 90 07/20/16 23:51 97.9 91 20 100/65 97 07/20/16 23:00 92 07/20/16 22:24 151/89 07/20/16 22:00 96 07/20/16 21:00 98 07/20/16 20:52 81 Nasal Cannula 4.00 07/20/16 20:00 96 07/20/16 20:00 99 24 192/116 93 07/20/16 19:00 93 07/20/16 18:00 94 07/20/16 17:02 78 18 156/80 97 Nasal Cannula 4 07/20/16 17:00 98.6 97 24 176/104 91 07/20/16 17:00 98 07/20/16 16:00 92 07/20/16 15:01 79 18 154/72 97 Nasal Cannula 4 07/20/16 12:18 86 18 150/77 93 Room Air I/O 07/20/16 07/20/16 07/20/16 07/21/16 07/21/16 07/21/16 07:00 15:00 23:00 07:00 15:00 23:00 Intake Total 870 ml Output Total 2000 ml Balance -1130 ml Intake Oral 680 ml IV Total 190 ml Output Urine Total 2000 ml # Bowel Movements 1 Physical Exam GENERAL: NAD, AAOx3 SKIN: Warm and dry. HEAD: Atraumatic. Normocephalic. EYES: Pupils equal and round. No scleral icterus. No injection or drainage. ENT: No nasal bleeding or discharge. Mucous membranes pink and moist. NECK: Trachea midline. No JVD. CARDIOVASCULAR: Regular rate and rhythm. No murmurs noted RESPIRATORY: No accessory muscle use. Decreased breath sounds bilaterally GASTROINTESTINAL: Abdomen soft, non-tender, nondistended. Hepatic and splenic margins not palpable. MUSCULOSKELETAL: Bilateral trace edema NEUROLOGICAL: Awake and alert. No obvious cranial nerve deficits. Lower extremity paraplegia PSYCHIATRIC: Appropriate mood and affect; insight and judgment normal. Laboratory Laboratory Tests Test 07/20/16 07/20/16 07/20/16 07/21/16 14:55 15:30 22:52 05:35 Urine Color YELLOW Urine Turbidity HAZY Urine pH 6.0 Urine Specific [place] 1.027 Urine Protein 30 mg/dL Urine Glucose (UA) NEG mg/dL Urine Ketones 10 mg/dL Urine Occult Blood SMALL Urine Nitrite POS Urine Bilirubin NEG Urine Urobilinogen 2.0 MG/DL Urine Leukocyte Esterase LARGE Urine RBC 9 /hpf Urine WBC 122 /hpf Urine Squamous Epithelial <1 /hpf Cells Urine Bacteria FEW /hpf Urine Mucus MANY /lpf Microscopic Urinalysis Comment CATH-CULTURE IND Total Creatine Kinase 260 U/L Creatine Kinase MB 6.8 NG/ML Troponin I 0.16 NG/ML Activated Partial 82.2 SEC 74.9 SEC Thromboplast Time Assessment and Plan Problem List: (1) PE (pulmonary thromboembolism) (2) NSTEMI (non-ST elevated myocardial infarction) (3) SOB (shortness of breath) (4) T6 spinal cord injury (5) HTN (hypertension) Assessment and Plan 1) Elevated trop/BNP with bilateral PE, no further cardiovascular work up 2) Echo showing moderate LVH, EF 60-65%, overall RV was difficult to see but did not appear increased in size or decreased function 3) Will see PRN, call with questions Jonathan Kuhn DO Jul 21, 2016 10:48
[2016-07-21] MEDS ORDERED: cefTRIAXone INJ 1,000 MG in SODIUM CHLORIDE 0.9% INJ 100 ML IV SCH (11:00)
[2016-07-21 11:54] LABS: APTT (PATIENT) 57.2 SEC (24.3-30.1)
--- NOTE | 2016-07-21 15:02 | EKG ---
Date Performed: 07/20/2016 Time Performed: 15:39:59 PTAGE: 65 years EKG: Sinus rhythm Compared to prior tracing no significant change NORMAL ECG INTERPRETATION BASED ON A DEFAULT AGE OF 39 YEARS PREVIOUS TRACING : 07/20/2016 09.27 DOCTOR: Sourav Shipley Interpretating Date/Time 07/21/2016 15:00:14
--- NOTE | 2016-07-21 15:54 | HHI.PR ---
Subjective History of Present Illness Feels better Denies chest pain Breathing is little better No cough or sputum production No fever or chills No nausea or vomiting Denies abdominal pain Appetite is okay Offers no other complaints is at bedside Vitals/Results Intake & Output 07/20/16 07/20/16 07/21/16 15:00 23:00 07:00 Intake Total 870 ml Output Total 2000 ml Balance -1130 ml Intake Oral 680 ml IV Total 190 ml Output Urine Total 2000 ml # Bowel Movements 1 Vital Signs Vital Signs Date Time Temp Pulse Resp B/P Pulse Ox O2 Delivery O2 Flow Rate FiO2 07/21/16 13:01 90 07/21/16 12:00 82 07/21/16 11:01 98.1 92 20 154/96 95 07/21/16 11:00 92 07/21/16 10:04 97 Nasal Cannula 3.00 07/21/16 10:00 88 07/21/16 09:00 86 07/21/16 08:01 97.9 88 20 140/88 94 07/21/16 08:00 90 07/21/16 07:00 82 07/21/16 06:01 85 07/21/16 05:03 84 07/21/16 04:02 85 07/21/16 03:54 97.7 95 20 144/88 97 07/21/16 03:09 87 07/21/16 02:14 89 07/21/16 01:01 90 07/21/16 00:24 90 07/20/16 23:51 97.9 91 20 100/65 97 07/20/16 23:00 92 07/20/16 22:24 151/89 07/20/16 22:00 96 07/20/16 21:00 98 07/20/16 20:52 81 Nasal Cannula 4.00 07/20/16 20:00 96 07/20/16 20:00 99 24 192/116 93 07/20/16 19:00 93 07/20/16 18:00 94 07/20/16 17:02 78 18 156/80 97 Nasal Cannula 4 07/20/16 17:00 98.6 97 24 176/104 91 07/20/16 17:00 98 07/20/16 16:00 92 CBC/BMP: 07/20/16 0910 07/20/16 0910 Lab Results Laboratory Tests Test 07/20/16 07/21/16 07/21/16 22:52 05:35 11:28 Activated Partial 82.2 SEC 74.9 SEC 57.2 SEC Thromboplast Time Physical Exam General General Appearance: No Acute Distress, Comfortable, Obese Eyes Eye Exam: Pupils Equal, Sclera White Ears & Nose Ears & Nose Exam: Nasal Mucosa [place] Throat Throat Exam: Oral Mucosa [place] & Moist Neck Neck Exam: Neck Supple, Trachea Midline Pulmonary Resp Exam: Clear Bilaterally, Breath Sounds Equal, No Distress Cardiology CV Exam: Regular, Normal Sinus Rhythm Gastrointestinal/Abdomen GI Exam: Soft, Non-Tender, Bowel Sounds Present Integumentary Skin Exam: Warm, Dry Extremeties Extremities Exam: Pedal Pulses Palpable, Trace Edema Neurologic Neuro Exam: Alert, Awake, Oriented, Speech Clear Neuro Remarks Bilateral lower extremity paralysis VTE Prophylaxis VTE Prophylaxis Meds: Heparin PUD Prophylasis PUD Prophylaxis: Protonix Assessment/Plan Assessment/Plan ASSESSMENT/PLAN 1. Bilateral central pulmonary emboli. 2. Probable UTI. 3. Mild protein calorie malnutrition. 4. Hypertension. 5. Cardiovascular disease. 6. Chest pain, rule out myocardial infarction. 7. Bilateral lower extremity paralysis. 8. Chronic pain. Plan Oxygen IV heparin Consultation appreciated, Discussed with patient again, he agreed to start newer novel anticoagulant, I suggested Eliquis. He agreed Would discontinue IV heparin now and start Eliquis 10 mg twice daily after 4 hours. Appreciate cardiology consultation, conservative management is recommended Troponin stable Continue baby aspirin Beta edmar/ADELINA inhibitor Start statin Check lipid profile Urine culture noted Continue IV antibiotic Continue PPI Continue current medication Analgesics for pain control Stool softeners when necessary laxative surgical services tech discharge planning/ possible DC home in a.m. Discussed with case filler to verify coverage for Eliquis by his insurance. Discussed patient and his at bedside in detail again. will Follow , Darlene Vaughan MD Jul 21, 2016 15:54
--- NOTE | 2016-07-21 19:39 | HHI.PR ---
Subjective Remarks 65 YOWM with lower ext paralysis,PE,Atelactesis Started on Eliquis 10 mg bid feels much better Denies sob No CP Objective Vital Signs Vital Signs Date Time Temp Pulse Resp B/P Pulse Ox O2 Delivery O2 Flow Rate FiO2 07/21/16 17:07 97.8 88 20 110/66 97 07/21/16 17:01 86 07/21/16 16:00 84 07/21/16 15:00 84 07/21/16 14:00 92 07/21/16 13:01 90 07/21/16 12:00 82 07/21/16 11:01 98.1 92 20 154/96 95 07/21/16 11:00 92 07/21/16 10:04 97 Nasal Cannula 3.00 07/21/16 10:00 88 07/21/16 09:00 86 07/21/16 08:01 97.9 88 20 140/88 94 07/21/16 08:00 90 07/21/16 07:00 82 07/21/16 06:01 85 07/21/16 05:03 84 07/21/16 04:02 85 07/21/16 03:54 97.7 95 20 144/88 97 07/21/16 03:09 87 07/21/16 02:14 89 07/21/16 01:01 90 07/21/16 00:24 90 07/20/16 23:51 97.9 91 20 100/65 97 07/20/16 23:00 92 07/20/16 22:24 151/89 07/20/16 22:00 96 07/20/16 21:00 98 07/20/16 20:52 81 Nasal Cannula 4.00 07/20/16 20:00 96 07/20/16 20:00 99 24 192/116 93 I/O 07/20/16 07/20/16 07/20/16 07/21/16 07/21/16 07/21/16 07:00 15:00 23:00 07:00 15:00 23:00 Intake Total 870 ml Output Total 2000 ml Balance -1130 ml Intake Oral 680 ml IV Total 190 ml Output Urine Total 2000 ml # Bowel Movements 1 Result Diagram: 07/20/16 0910 07/20/16 0910 Objective Remarks GENERAL:WBWN Wm, no distress SKIN: Warm and dry. HEAD: Normocephalic. EYES: No scleral icterus. No injection or drainage. NECK: Supple, trachea midline. No JVD or lymphadenopathy. CARDIOVASCULAR: Regular rate and rhythm without murmurs, gallops, or rubs. RESPIRATORY: Breath sounds equal bilaterally. No accessory muscle use. GASTROINTESTINAL: Abdomen soft, non-tender, nondistended. MUSCULOSKELETAL: No cyanosis, or edema. BACK: Nontender without obvious deformity. No CVA tenderness. A/P Assessment and Plan Bilat PE Atelactesis Small pl effusion Bilat lower ext paralysis Urinary and stool incontinance PLAN: DW Pt and his Jane for anticoagulation Discussed benefits and risks of NOAC and Coumadin IS Wean 02 Will need life long anticoagulation Octavio Lobo MD Jul 21, 2016 19:39
[2016-07-21] MEDS: SODIUM CHLORIDE 0.9% FLUSH 5 ML FLUSH IVF PRN (20:41)
[2016-07-21] MEDS: APIXABAN 5 MG TABLET PO SCH (22:04)
[2016-07-22] VITALS (15 sets, daily range): BP systolic 115–137; BP diastolic 70–79; PULSE 75–101; RESP 18; TEMP 97.7–98; O2SAT 93–96
[2016-07-22] MEDS: RESP: ALBUTEROL 2.5 MG/IPRATROPIUM 0.5 MG NEB (SCH) NEB ×2 (03:40→08:48)
[2016-07-22 06:19] LABS: HEMATOCRIT 40.6 % (39.0-51.0); MEAN CELL VOLUME 83.7 FL (80.0-100.0); MEAN CORPUSCULAR HEMOGLOBIN 26.9 PG (27.0-34.0); MEAN CORPUSCULAR HGB CONC 32.2 % (32.0-36.0); PLATELET COUNT 224 TH/MM3 (150-450); RED BLOOD COUNT 4.85 MIL/MM3 (4.50-5.90); RED CELL DISTRIBUTION WIDTH 18.6 % (11.6-17.2); REVIEW FLAG FINAL; WHITE BLOOD COUNT 9.1 TH/MM3 (4.0-11.0)
[2016-07-22 06:49] LABS: BICARBONATE 29.7 MEQ/L (21.0-32.0); POTASSIUM 3.6 MEQ/L (3.5-5.1)
[2016-07-22] MEDS: PANTOPRAZOLE SOD 40 MG DELAYED RELEASE TAB PO SCH (08:33)
[2016-07-22] MEDS: ALLOPURINOL 300 MG TAB PO SCH (08:34)
[2016-07-22] MEDS: ESCITALOPRAM OXALATE 10 MG TAB PO SCH (08:34)
[2016-07-22] MEDS: LISINOPRIL 10 MG TAB PO SCH (08:34)
[2016-07-22] MEDS: CARVEDILOL 3.125 MG TAB PO SCH (08:34)
[2016-07-22] MEDS: POTASSIUM CHLORIDE 20 MEQ CONTROLLED RELEASE TAB PO SCH (08:34)
[2016-07-22] MEDS: GABAPENTIN 100 MG CAP PO SCH (08:34)
[2016-07-22] MEDS: APIXABAN 5 MG TABLET PO SCH (08:34)
[2016-07-22] MEDS: FUROSEMIDE 40 MG/4 ML VIAL IV PUSH SCH (08:35)
[2016-07-22] MEDS ORDERED: ASPIRIN 81 MG CHEW TAB PO SCH (09:00)
--- NOTE | 2016-07-22 10:02 | HHI.PR ---
Subjective Subjective Remarks resting in bed, alert, oriented Denies any chest pain Denies any shortness of breath Appetite good (Jennifer Corbett) Review of Systems Constitutional Constitutional: Fatigue (generalized), Weakness (lower extremities, paraplegia) Constitutional Remarks 10 point ROS done positives include generalized fatigue and paraplegia, with some movement of lower extremities, no ambulation. Davis catheter, neurogenic bladder. Other systems negative or unremarkable (Jennifer Corbett) Genitourinary Remarks Davis catheter, plan to possibly discontinue today (Jennifer Corbett) Musculoskeletal MS: Weakness (lower extremities) (Jennifer Corbett) Psychiatric Psychiatric: Normal Mood Psychiatric Remarks Pleasant (Jennifer Corbett) Vitals/Results Intake & Output 07/21/16 07/21/16 07/22/16 15:00 23:00 07:00 Intake Total 610 ml 480 ml Output Total 1325 ml 1675 ml Balance -715 ml -1195 ml Intake Oral 360 ml 480 ml IV Total 250 ml Output Urine Total 1325 ml 1675 ml # Bowel Movements 2 Vital Signs Vital Signs Date Time Temp Pulse Resp B/P Pulse Ox O2 Delivery O2 Flow Rate FiO2 07/22/16 09:11 93 07/22/16 08:48 93 21 07/22/16 08:03 75 07/22/16 08:03 97.7 85 18 137/70 96 07/22/16 06:17 76 07/22/16 05:09 77 07/22/16 04:07 80 07/22/16 03:00 80 07/22/16 03:00 97.9 85 18 115/70 93 07/22/16 02:06 82 07/22/16 01:19 86 07/22/16 00:02 79 07/21/16 23:15 98.4 88 20 86/56 96 07/21/16 23:00 82 07/21/16 22:29 85 07/21/16 21:00 84 07/21/16 20:44 92 Nasal Cannula 2.00 07/21/16 20:00 96 07/21/16 19:30 97.8 98 17 121/71 96 07/21/16 19:00 94 07/21/16 18:01 92 07/21/16 17:07 97.8 88 20 110/66 97 07/21/16 17:01 86 07/21/16 16:00 84 07/21/16 15:00 84 07/21/16 14:00 92 07/21/16 13:01 90 07/21/16 12:00 82 07/21/16 11:01 98.1 92 20 154/96 95 07/21/16 11:00 92 07/21/16 10:04 97 Nasal Cannula 3.00 07/21/16 10:00 88 (Jennifer Corbett) CBC/BMP: 07/22/16 0550 07/22/16 0550 Lab Results Laboratory Tests Test 07/21/16 07/22/16 11:28 05:50 Activated Partial 57.2 SEC Thromboplast Time White Blood Count 9.1 TH/MM3 Red Blood Count 4.85 MIL/MM3 Hemoglobin 13.1 GM/DL Hematocrit 40.6 % Mean Corpuscular Volume 83.7 FL Mean Corpuscular Hemoglobin 26.9 PG Mean Corpuscular Hemoglobin 32.2 % Concent Red Cell Distribution Width 18.6 % Platelet Count 224 TH/MM3 Mean Platelet Volume 8.5 FL Sodium Level 141 MEQ/L Potassium Level 3.6 MEQ/L Chloride Level 100 MEQ/L Carbon Dioxide Level 29.7 MEQ/L Anion Gap 11 MEQ/L Blood Urea Nitrogen 29 MG/DL Creatinine 1.47 MG/DL Estimat Glomerular Filtration 48 ML/MIN Rate Random Glucose 99 MG/DL Calcium Level 8.6 MG/DL Current Medications Active Medications Apixaban (Eliquis) 10 mg BID PO Last administered on 07/22/16 08:34; Admin Dose 10 MG; Start 07/21/16 at 22:00 Aspirin (Aspirin Chew) 81 mg DAILY PO Last administered on 07/22/16 08:34; Admin Dose 81 MG; Start 07/22/16 at 09:00 Ceftriaxone Sodium/Sodium Chloride (Rocephin Inj/NS Inj) 100 ml @ 200 mls/hr Q24H IV Last administered on 07/21/16 12:14; Admin Dose 200 MLS/HR; Start 07/21 at 11:00 (Jennifer Corbett) Physical Exam General General Appearance: No Acute Distress, Comfortable, Obese (Chelle,Jennifer M. RUBBER FACTORY WORKER) Eyes Eye Exam: Pupils Equal, Sclera White ([place] M. RUBBER FACTORY WORKER) Ears & Nose Ears & Nose Exam: Nasal Mucosa [place] ([place] M. RUBBER FACTORY WORKER) Throat Throat Exam: Oral Mucosa [place] & Moist (Chelle,Jennifer M. RUBBER FACTORY WORKER) Neck Neck Exam: Neck Supple, Trachea Midline (ChelleJennifer M. RUBBER FACTORY WORKER) Pulmonary Resp Exam: Clear Bilaterally, Breath Sounds Equal, No Distress, Decreased Bases , Diminished Breath Sounds (Chelle,Jennifer M. RUBBER FACTORY WORKER) Cardiology CV Exam: Regular, Normal Sinus Rhythm ([place] M. RUBBER FACTORY WORKER) Gastrointestinal/Abdomen GI Exam: Soft, Non-Tender, Bowel Sounds Present (ChelleJennifer M. RUBBER FACTORY WORKER) Musculoskeletal MS Exam: Atrophy (lower extremities) (ChelleJennifer M. RUBBER FACTORY WORKER) Integumentary Skin Exam: Warm, Dry (ChelleJennifer M. RUBBER FACTORY WORKER) Extremeties Extremities Exam: Pedal Pulses Palpable, Trace Edema (ChelleJennifer M. RUBBER FACTORY WORKER) Neurologic Neuro Exam: Alert, Awake, Oriented, Speech Clear ([place] M. RUBBER FACTORY WORKER) VTE Prophylaxis VTE Prophylaxis Meds: Heparin (ChelleJennifer M. RUBBER FACTORY WORKER) PUD Prophylasis PUD Prophylaxis: Protonix (ChelleJennifer M. RUBBER FACTORY WORKER) Assessment/Plan Assessment/Plan ASSESSMENT/PLAN 1. Bilateral central pulmonary emboli. 2. Probable UTI. 3. Mild protein calorie malnutrition. 4. Hypertension. 5. Cardiovascular disease. 6. Chest pain, rule out myocardial infarction. 7. Bilateral lower extremity paralysis. 8. Chronic pain. Plan Oxygen as needed currently on room air, no shortness of breath Vital signs and labs monitored, patient afebrile, stable labs Acute kidney injury, mildly elevated, encouraged hydration, may need outpatient follow-up in the future Consultation appreciated, Discussed with patient again, he agreed to start newer novel anticoagulant, I suggested Eliquis. He agreed Would discontinue IV heparin now and start Eliquis 10 mg twice daily after 4 hours., Case management working to see if insurance approves Eliquis. If not will move to another plan. Appreciate cardiology consultation, conservative management is recommended Troponin stable Continue baby aspirin Beta edmar/ADELINA inhibitor Start statin UTI Continue IV antibiotic Continue PPI Pain management Stool softeners when necessary laxative, financial services sales representative discharge planning/ Discussed with lead case manager to verify coverage for Eliquis by his insurance.Discussed with patient again. We will need to follow up with rehabilitation outpatient, PCP, pulmonary , (Jennifer Corbett) Assessment/Plan pt is seen & Examined d/w PT in detail / feels much better d/c IV lasix encourage po fluids cont Elquis 10 mg bid x more days manish 5 mg bid afterwards d/c IV rocephin po ceftin x 4 more days for UTI f/u CBC /BMP next wednesday f/u pcp f/u pulmonary d/w RN see Orders see MRS (Darlene Vaughan MD) Jennifer Corbett Jul 22, 2016 10:02 Darlene Vaughan MD Jul 22, 2016 10:54
[2016-07-22] MEDS ORDERED: CEFT500T3 PO (11:00)
[2016-07-22] MEDS ORDERED: APIX5TAB PO ×2 (11:00)
--- NOTE | 2016-07-22 11:29 | HHI.FF ---
Face to Face Verification Diagnosis: (1) PE (pulmonary thromboembolism) (2) Hypotension (3) Thoracic spondylosis with cord compression (4) T6 spinal cord injury (5) Morbid obesity with BMI of 45.0-49.9, adult (6) Impaired mobility and activities of daily living (7) Neurogenic bowel (8) Neurogenic bladder Physical Therapy Order: Evaluate and Treat, Strength and gait training Home Health Nursing Order: Signs/symptoms of disease process Medication education-adverse effect Wound care and dressing changes Nursing assessment with vital signs Davis catheter maintenance I have seen patient Harry Martinez on 07/22/16. My clinical findings support the need for the requested home health care services because: Ltd mobility - disease progression Patient has SOB High risk of falls I certify that my clinical findings support that this patient is homebound because: Unsafe to leave home unassisted [id number] bed/chair Unable to use public transportation Darlene Vaughan MD Jul 22, 2016 11:29
--- NOTE | 2016-07-22 17:22 | PD.CARD.PN ---
Subjective Subjective Remarks Patient seen earlier No chest pain, decreased shortness of breath Objective Medications Current Medications IV Flush (NS Flush) 2 ml UNSCH PRN IVF FLUSH AFTER USING IV ACCESS Last administered on 07/21/16 20:41; Start 07/20/16 at 09:00; Stop 07/22/16 at 16:31 ; Status DC Methylprednisolone Sodium Succinate (SoluMEDROL INJ) 125 mg ONCE ONCE IVP Last administered on 07/20/16 09:24; Start 07/20/16 at 09:15; Stop 07/20/16 at 09:16; Status DC Albuterol/ Ipratropium (Duoneb Neb) 1 ampule Q15M INH Last administered on 07/20 09:37; Start 07/20/16 at 09:15; Stop 07/20/16 at 09:46; Status DC Aspirin 324 mg 324 mg ONCE ONCE CHEW Last administered on 07/20/16 10:50; Start 07/20/16 at 10:15; Stop 07/20/16 at 10:16; Status DC Ceftriaxone Sodium 1000 mg/ Sodium Chloride 100 ml @ 200 mls/hr ONCE ONCE IV Last administered on 07/20/16 10:50; Start 07/20/16 at 10:15; Stop 07/20/16 at 10:45; Status DC Levofloxacin/ Dextrose (Levaquin 750 Mg Premix Inj) 150 ml @ 100 mls/hr ONCE ONCE IV Last administered on 07/20/16 11:16; Start 07/20/16 at 10:15; Stop at 11:44; Status DC Allopurinol (Zyloprim) 300 mg DAILY PO Last administered on 07/22/16 08:34; Start 07/21/16 at 09:00; Stop 07/22/16 at 16:31; Status DC Aspirin (Ecotrin Ec) 81 mg DAILY PO Last administered on 07/21/16 08:00; Start 07/21/16 at 09:00; Stop 07/21/16 at 16:46; Status DC Baclofen (Lioresal) 10 mg TID PRN PO MUSCLE SPASM; Start 07/20/16 at 11:30; Stop 07/22/16 at 16:31; Status DC Carvedilol (Coreg) 3.125 mg Q12HR PO Last administered on 07/22/16 08:34; Start 07/20/16 at 21:00; Stop 07/22/16 at 16:31; Status DC Escitalopram Oxalate (Lexapro) 10 mg DAILY PO Last administered on 07/22/16 08 :34; Start 07/21/16 at 09:00; Stop 07/22/16 at 16:31; Status DC Gabapentin (Neurontin) 200 mg BID PO Last administered on 07/22/16 08:34; Start 07/20/16 at 21:00; Stop 07/22/16 at 16:31; Status DC Acetaminophen/ Hydrocodone Bitart ([place] 10-325 Mg) 1 tab Q4H PRN PO PAIN 5 TO 10; Start 07/20/16 at 11:30; Stop 07/22/16 at 16:31; Status DC Lisinopril (Prinivil) 10 mg BID PO Last administered on 07/22/16 08:34; Start 07/20/16 at 21:00; Stop 07/22/16 at 16:31; Status DC Pantoprazole Sodium (Protonix) 40 mg DAILY PO Last administered on 07/22/16 08 :33; Start 07/21/16 at 09:00; Stop 07/22/16 at 16:31; Status DC Tizanidine HCl (Zanaflex) 4 mg HS PO Last administered on 07/21/16 20:41; Start 07/20/16 at 21:00; Stop 07/22/16 at 16:31; Status DC Furosemide (Lasix Inj) 40 mg BID@09,18 IV PUSH Last administered on 07/22/16 08:35; Start 07/20/16 at 18:00; Stop 07/22/16 at 10:40; Status DC Potassium Chloride 20 meq 20 meq Q12HR PO Last administered on 07/22/16 08:34 ; Start 07/20/16 at 21:00; Stop 07/22/16 at 10:41; Status DC Ceftriaxone Sodium/Sodium Chloride (Rocephin Inj/NS Inj) 100 ml @ 200 mls/hr Q24H IV Last administered on 07/21/16 12:14; Start 07/21/16 at 11:00; Stop at 10:42; Status DC Albuterol/ Ipratropium (Duoneb Neb) 1 ampule Q6HR NEB NEB Last administered on 07/22/16 08:48; Start 07/20/16 at 16:00; Stop 07/22/16 at 16:31; Status DC Enoxaparin Sodium (Lovenox Inj) 40 mg Q24H SQ Last administered on 07/20/16 14 :50; Start 07/20/16 at 14:00; Stop 07/20/16 at 15:56; Status DC Iohexol (Omnipaque 350 Inj) 80 ml STK-MED ONCE IV ; Start 07/20/16 at 15:18; Stop 07/20/16 at 15:19; Status DC Heparin Sodium (Porcine) (Heparin Inj) 8,000 units ONCE ONCE IV Last administered on 07/20/16 16:21; Start 07/20/16 at 16:00; Stop 07/20/16 at 16:01 ; Status DC Heparin Sodium (Porcine) (Heparin Inj) 5,000 units UNSCH PRN IV APTT LESS THAN 25; Start 07/20/16 at 22:00; Stop 07/21/16 at 16:46; Status DC Heparin Sodium (Porcine) 2500 units 2,500 units UNSCH PRN IV APTT 25 TO 39; Start 07/20/16 at 22:00; Stop 07/21/16 at 16:46; Status DC Heparin Sodium/ Dextrose (Heparin-D5W Inj) 250 ml @ 0 mls/hr TITRATE IV Last administered on 07/21/16 05:41; Start 07/20/16 at 16:00; Stop 07/21/16 at 16:46 ; Status DC Apixaban (Eliquis) 10 mg BID PO Last administered on 07/22/16 08:34; Start at 22:00; Stop 07/22/16 at 16:31; Status DC Aspirin (Aspirin Chew) 81 mg DAILY PO Last administered on 07/22/16 08:34; Start 07/22/16 at 09:00; Stop 07/22/16 at 16:31; Status DC Cefuroxime Axetil (Ceftin) 500 mg Q12HR PO ; Start 07/22/16 at 21:00; Stop 07/22 at 21:00; Status DC Vital Signs / I&O Vital Signs Date Time Temp Pulse Resp B/P Pulse Ox O2 Delivery O2 Flow Rate FiO2 07/22/16 14:06 101 07/22/16 13:05 97 07/22/16 12:44 92 07/22/16 11:46 98.0 89 18 129/79 94 07/22/16 11:46 86 07/22/16 10:06 99 07/22/16 09:11 93 07/22/16 08:48 93 21 07/22/16 08:03 75 07/22/16 08:03 97.7 85 18 137/70 96 07/22/16 06:17 76 07/22/16 05:09 77 07/22/16 04:07 80 07/22/16 03:00 80 07/22/16 03:00 97.9 85 18 115/70 93 07/22/16 02:06 82 07/22/16 01:19 86 07/22/16 00:02 79 07/21/16 23:15 98.4 88 20 86/56 96 07/21/16 23:00 82 07/21/16 22:29 85 07/21/16 21:00 84 07/21/16 20:44 92 Nasal Cannula 2.00 07/21/16 20:00 96 07/21/16 19:30 97.8 98 17 121/71 96 07/21/16 19:00 94 07/21/16 18:01 92 I/O 07/21/16 07/21/16 07/21/16 07/22/16 07/22/16 07/22/16 07:00 15:00 23:00 07:00 15:00 23:00 Intake Total 870 ml 610 ml 480 ml 360 ml Output Total 2000 ml 1325 ml 1675 ml 2000 ml Balance -1130 ml -715 ml -1195 ml -1640 ml Intake Oral 680 ml 360 ml 480 ml 360 ml IV Total 190 ml 250 ml Output Urine Total 2000 ml 1325 ml 1675 ml 2000 ml # Bowel Movements 1 2 1 Physical Exam GENERAL: NAD, AAOx3 SKIN: Warm and dry. HEAD: Atraumatic. Normocephalic. EYES: Pupils equal and round. No scleral icterus. No injection or drainage. ENT: No nasal bleeding or discharge. Mucous membranes pink and moist. NECK: Trachea midline. No JVD. CARDIOVASCULAR: Regular rate and rhythm. No murmurs noted RESPIRATORY: No accessory muscle use. Decreased breath sounds bilaterally GASTROINTESTINAL: Abdomen soft, non-tender, nondistended. Hepatic and splenic margins not palpable. MUSCULOSKELETAL: Bilateral trace edema NEUROLOGICAL: Awake and alert. No obvious cranial nerve deficits. Lower extremity paraplegia PSYCHIATRIC: Appropriate mood and affect; insight and judgment normal. Laboratory Laboratory Tests Test 07/22/16 05:50 White Blood Count 9.1 TH/MM3 Red Blood Count 4.85 MIL/MM3 Hemoglobin 13.1 GM/DL Hematocrit 40.6 % Mean Corpuscular Volume 83.7 FL Mean Corpuscular Hemoglobin 26.9 PG Mean Corpuscular Hemoglobin 32.2 % Concent Red Cell Distribution Width 18.6 % Platelet Count 224 TH/MM3 Mean Platelet Volume 8.5 FL Sodium Level 141 MEQ/L Potassium Level 3.6 MEQ/L Chloride Level 100 MEQ/L Carbon Dioxide Level 29.7 MEQ/L Anion Gap 11 MEQ/L Blood Urea Nitrogen 29 MG/DL Creatinine 1.47 MG/DL Estimat Glomerular Filtration 48 ML/MIN Rate Random Glucose 99 MG/DL Calcium Level 8.6 MG/DL Assessment and Plan Problem List: (1) PE (pulmonary thromboembolism) (2) NSTEMI (non-ST elevated myocardial infarction) (3) SOB (shortness of breath) (4) T6 spinal cord injury (5) HTN (hypertension) Assessment and Plan 1) Elevated trop/BNP with bilateral PE, no further cardiovascular work up 2) Echo showing moderate LVH, EF 60-65%, overall RV was difficult to see but did not appear increased in size or decreased function 3) Discussed with the patient, may need senior care anticoagulant with his immobility, should follow up with his primary, consider pulmonology or hematology for decision Jonathan Kuhn DO Jul 22, 2016 17:22
--- NOTE | 2016-07-22 18:31 | HHI.DS ---
Discharge Summary Admission Date Jul 20, 2016 at 10:37 Admitting Diagnosis NSTEMI, pneumonia, CHF Brief History This was a pleasant 65-year-old morbidly obese male who noted some shortness of breath for the last few months. He stated that the shortness of breath waxed and waned, would seem to be worse at night or when laying flat, but during the daytime he could tolerate. He had no problems tolerating it and his intensity was less. Over the past 2 days the shortness of breath has tended to get worse and the night before admission he could not lay flat at all due to the shortness of breath. He also complained of some stuffiness in his head. The patient denied any chest pain. No nausea no vomiting. No fever, no chills. No constipation. No diarrhea and no headache. The patient did complain of some mild epigastric tightness off and on and it is seemed to be worse when he lays flat. The patient had no complaints of incontinence or dysuria. The patient was in the hospital this past year and had several surgeries related to his back. Since then he had not been able to walk. He did have minimal movement in his lower extremities bilateral, but he was unable to bear weight, CBC/BMP: 07/22/16 0550 07/22/16 0550 Significant Findings Laboratory Tests Test 07/20/16 07/20/16 07/20/16 07/20/16 09:10 14:55 15:30 22:52 Red Cell Distribution Width 18.5 % (11.6-17.2) Neutrophils (%) (Auto) 78.7 % (16.0-70.0) Lymphocytes (%) (Auto) 8.9 % (9.0-44.0) Monocytes (%) (Auto) 8.4 % (0.0-8.0) Neutrophils # (Auto) 8.2 TH/MM3 (1.8-7.7) Lymphocytes # (Auto) 0.9 TH/MM3 (1.0-4.8) Blood Urea Nitrogen 19 MG/DL (7-18) Estimat Glomerular Filtration 67 ML/MIN (>89) Rate Calcium Level 8.4 MG/DL (8.5-10.1) Creatine Kinase MB 6.2 NG/ML 6.8 NG/ML (0.5-3.6) (0.5-3.6) Troponin I 0.22 NG/ML 0.16 NG/ML (0.02-0.05) (0.02-0.05) B-Type Natriuretic Peptide 176 PG/ML (0-100) Albumin 3.1 GM/DL (3.4-5.0) Urine Turbidity HAZY (CLEAR) Urine Protein 30 mg/dL (NEG-TRACE) Urine Ketones 10 mg/dL (NEG) Urine Occult Blood SMALL (NEG) Urine Nitrite POS (NEG) Urine Leukocyte Esterase LARGE (NEG) Urine RBC 9 /hpf (0-3) Urine WBC 122 /hpf (0-5) Urine Bacteria FEW /hpf (NONE) Urine Mucus MANY /lpf (OCC) Activated Partial 82.2 SEC Thromboplast Time (24.3-30.1) Test 07/21/16 07/21/16 07/22/16 05:35 11:28 05:50 Activated Partial 74.9 SEC 57.2 SEC Thromboplast Time (24.3-30.1) (24.3-30.1) Mean Corpuscular Hemoglobin 26.9 PG (27.0-34.0) Red Cell Distribution Width 18.6 % (11.6-17.2) Blood Urea Nitrogen 29 MG/DL (7-18) Creatinine 1.47 MG/DL (0.60-1.30) Estimat Glomerular Filtration 48 ML/MIN (>89) Rate PE at Discharge General Appearance: No Acute Distress, Comfortable, Obese (Jennifer Corbett. LINK WIRE FABRIC MACHINE TENDER) Eyes Eye Exam: Pupils Equal, Sclera White (Jennifer Corbett LINK WIRE FABRIC MACHINE TENDER) Ears & Nose Ears & Nose Exam: Nasal Mucosa [place] (Jennifer Corbett LINK WIRE FABRIC MACHINE TENDER) Throat Throat Exam: Oral Mucosa [place] & Moist (Jennifer Corbett LINK WIRE FABRIC MACHINE TENDER) Neck Neck Exam: Neck Supple, Trachea Midline (Jennifer Corbett LINK WIRE FABRIC MACHINE TENDER) Pulmonary Resp Exam: Clear Bilaterally, Breath Sounds Equal, No Distress, Decreased Bases , Diminished Breath Sounds (Jennifer Corbett. LINK WIRE FABRIC MACHINE TENDER) Cardiology CV Exam: Regular, Normal Sinus Rhythm (Jennifer Corbett. LINK WIRE FABRIC MACHINE TENDER) Gastrointestinal/Abdomen GI Exam: Soft, Non-Tender, Bowel Sounds Present (Jennifer Corbett LINK WIRE FABRIC MACHINE TENDER) Musculoskeletal MS Exam: Atrophy (lower extremities) (Jennifer Corbett) Integumentary Skin Exam: Warm, Dry (Jennifer Corbett) Extremeties Extremities Exam: Pedal Pulses Palpable, Trace Edema (Jennifer Corbett) Neurologic Neuro Exam: Alert, Awake, Oriented, Speech Clear (Jennifer CorbettP) VTE Prophylaxis VTE Prophylaxis Meds: Heparin (Jennifer Corbett) PUD Prophylasis PUD Prophylaxis: Protonix (Jennifer Corbett) Hospital Course These were the diagnosis used to treat during this hospital stay his plan a care. 1. Bilateral central pulmonary emboli. 2. Probable UTI. 3. Mild protein calorie malnutrition. 4. Hypertension. 5. Cardiovascular disease. 6. Chest pain, rule out myocardial infarction. 7. Bilateral lower extremity paralysis. 8. Chronic pain. 9. Acute kidney injury Plan included Oxygen as needed Patient is currently on room air, no shortness of breath Vital signs and labs monitored, patient afebrile, stable labs Acute kidney injury, mildly elevated, encouraged hydration, may need outpatient follow-up in the future Consultation appreciated, for pulmonary medicine. Patient will need to be on long-term by mouth medicine for his blood thinning agent to cover his acute onset of pulmonary embolus Discussed with patient again, he agreed to start newer novel anticoagulant, I suggested Eliquis. He agreed Would discontinue IV heparin now and start Eliquis 10 mg twice daily after 4 hours., Case management working to see if insurance approves Eliquis. If not will move to another plan. No changes in medications done before discharge,. Appreciate cardiology consultation, conservative management is recommended Troponin stable, which showed no heart attack Continue baby aspirin Beta edmar/ADELINA inhibitor were used Start statin, which was done UTI Continue IV antibiotic, transition to by mouth antibiotic, Ceftin for 4 more days by mouth Continue PPI prophylaxis Pain management Stool softeners when necessary laxative, implementation services analyst discharge planning/ Discussed with child support case officer to verify coverage for Eliquis by his insurance.Discussed with patient again. We will need to follow up with rehabilitation outpatient, PCP, pulmonary Pt Condition on Discharge: Stable Discharge Disposition: Disch w/ Home Health Serv Discharge Instructions DIET: Follow Instructions for: Heart Healthy Diet Fluid Restrictions: none Activities you can perform: See Additionl Instruction Other Activity Instructions: fall precautions / wheel chair bound/ Bernadine's lift for transfer Follow up Referrals: PCP Follow-up - 1 Week Pulmonology - 3 Weeks New Medications: Apixaban (Eliquis) 5 Mg Tab 5 MG PO BID Blood Clot Prevention #60 Ref 0 TAB Apixaban (Eliquis) 5 Mg Tab 10 MG PO BID PE #12 TAB Cefuroxime (Ceftin) 500 Mg Tab 500 MG PO Q12HR infection #8 TAB Continued Medications: Allopurinol (Allopurinol) 300 Mg Tab 300 MG PO DAILY Gout #30 Ref 0 TAB Baclofen (Baclofen) 10 Mg Tab 10 MG PO BID@0900, 1300 PRN MUSCLE SPASM #60 Ref 0 TAB Carvedilol (Carvedilol) 3.125 Mg Tab 3.125 MG PO Q12HR #60 Ref 0 TAB Escitalopram (Escitalopram) 10 Mg Tab 10 MG PO DAILY #30 Ref 0 TAB Gabapentin (Gabapentin) 100 Mg Cap 200 MG PO BID #120 Ref 0 CAP Hydrocodone-Acetaminophen (Hydrocodone-Acetaminophen) 10-325 mg Tab 1-2 TAB PO Q4H PRN PAIN #120 Ref 0 TAB Lisinopril (Lisinopril) 10 Mg Tab 10 MG PO BID #60 Ref 0 TAB Nystatin Topical (Nystatin Topical) 100,000 unit/gm Cream 1 APPLIC TOPICAL TID Infection #1 Ref 0 GM Pantoprazole (Protonix) 40 Mg Tab 40 MG PO DAILY Reflux #30 Ref 0 TAB Tizanidine (Tizanidine) 4 Mg Cap 4 MG PO HS Muscle Spasm #30 Ref 0 CAP Discontinued Medications: Aspirin DR (Aspirin 81) 81 Mg Tabdr 81 MG PO DAILY #30 Ref 0 TAB Jennifer Corbett Jul 22, 2016 18:31
[2016-07-22] MEDS ORDERED: CEFUROXIME AXETIL 500 MG TAB PO SCH (21:00)
[2016-09-30] MEDS ORDERED: GABA100C4 PO (14:36)
[2016-09-30] MEDS ORDERED: BACL20TA PO (14:36)
== END 2016-07-22 15:45 | disposition home health service (06) | DRG 175 ==
LOC: NEPE 08:30 → NEDA 10:37 → HCIN 17:00
PROVIDERS: ADMIT Specialist; ATTEND Specialist
DX: I26.99 Other pulmonary embolism without acute cor pulmonale (principal); I21.4 Non-ST elevation (NSTEMI) myocardial infarction; N17.9 Acute kidney failure, unspecified; G82.20 Paraplegia, unspecified; E44.1 Mild protein-calorie malnutrition; N39.0 Urinary tract infection, site not specified; F41.9 Anxiety disorder, unspecified; I10 Essential (primary) hypertension; K21.9 Gastro-esophageal reflux disease without esophagitis; E78.5 Hyperlipidemia, unspecified; R32 Unspecified urinary incontinence; E66.01 Morbid (severe) obesity due to excess calories; Z68.37 Body mass index [BMI] 37.0-37.9, adult; I25.10 Atherosclerotic heart disease of native coronary artery without angina pectoris
CPT/HCPCS: 71010; 71275; 80048; 80053; 81001; 82550; 82552; 83880; 84484; 85025; 85027; 85610; 85730; 87086; 93005; 93306; 93970; 94640; 94664; 96374; J0696; J1644; J1650; J1940; J1956; J2930; Q9967

== ENCOUNTER 2017-02-11 23:57 | Inpatient (IN) | payer MEDICARE ==
[~2017-02-11] VITALS: Ht 182.9 cm; Wt 125.0 kg
[~2017-02-11 23:57] MED LIST changes: +APIX5TAB PO; -ASPI-110 PO; +BACL20TA PO; -CALC250 PO; +CEFT500T3 PO; -FISH100020 PO; -HOSPITAL BED SEMI; -PRAV10TA PO; +PROT40TA PO; -THERM PO
[2017-02-12] VITALS (12 sets, daily range): BP systolic 75–140; BP diastolic 48–71; PULSE 57–91; RESP 16–17; TEMP 97.7–98.3; O2SAT 93–100
[2017-02-12] MEDS ORDERED: ASPIRIN 81 MG CHEW TAB PO STA (00:42)
[2017-02-12] MEDS ORDERED: HEPARIN-D5W 25,000 U/250 ML 250 ML IV PRN (00:45)
[2017-02-12 00:48] LABS: I-STAT POTASSIUM 4.3 MMOL/L (3.5-4.9); I-STAT SODIUM 137 MMOL/L (138-146)
[2017-02-12 00:53] LABS: AUTOMATED NEUTROPHIL # 9.2 TH/MM3 (1.8-7.7); BASOPHIL # 0.1 TH/MM3 (0-0.2); BASOPHIL % 0.6 % (0.0-2.0); EOSINOPHIL # 0.2 TH/MM3 (0-0.4); EOSINOPHIL % 1.9 % (0.0-4.0); HEMATOCRIT 46.5 % (39.0-51.0); HEMO FLAGS DIFF FINAL; LYMPH % 8.3 % (9.0-44.0); MEAN CELL VOLUME 90.4 FL (80.0-100.0); MEAN CORPUSCULAR HEMOGLOBIN 30.3 PG (27.0-34.0); MEAN CORPUSCULAR HGB CONC 33.5 % (32.0-36.0); MONO % 9.7 % (0.0-8.0); NEUT % 79.5 % (16.0-70.0); PLATELET COUNT 226 TH/MM3 (150-450); RED BLOOD COUNT 5.14 MIL/MM3 (4.50-5.90); RED CELL DISTRIBUTION WIDTH 17.4 % (11.6-17.2); WHITE BLOOD COUNT 11.6 TH/MM3 (4.0-11.0)
[2017-02-12 01:01] LABS: APTT (PATIENT) 31.4 SEC (24.3-30.1); PROTHROMBIN TIME - PATIENT 11.5 SEC (9.8-11.6)
--- NOTE | 2017-02-12 01:05 | RADRPT ---
EXAM DATE/TIME: 02/12/2017 00:52 [facility] COMPARISON: CHEST SINGLE AP, July 20, 2016, 9:34. INDICATIONS : STEMI alert- Chest pain and Shortness of breath MEDICAL HISTORY : Hypertension. SURGICAL HISTORY : None. ENCOUNTER: Initial ACUITY: 1 day PAIN SCORE: 9/10 LOCATION: Bilateral chest FINDINGS: A single portable frontal view the chest shows a basilar consolidation involving the right lung base. Left lung is clear. No effusions. Heart is mildly enlarged. Orthopedic hardware involving the thorac ic spine. CONCLUSION: Right lower lobe infiltrate. Allan Villareal Jr., MD on February 12, 2017 at 1:03 Board Certified Radiologist. This report was verified electronically.
--- NOTE | 2017-02-12 01:06 | PD ---
HPI Chief Complaint: Chest Pain Time Seen by Provider: 00:25 Travel History International Travel<30 days: No Contact w/Intl Traveler<30days: No Traveled to known affect area: No History of Present Illness HPI Patient is 66-year-old male with history of hypertension, hyperlipidemia, PE, DVT, presents to the ER with complaints of chest pain. Patient reports that around 5 AM this morning, he began to have chest pain. Patient reports that chest pain is substernal in nature, reports that it radiates to his neck bilaterally. Patient reports that chest pain is associated with shortness of breath with no diaphoresis. Reports that chest pain lasted for about 4 hours and resolved on its own. Patient reports that while he was trying to go to bed tonight around 10 pm, he began to have return of chest pain. Patient reports that chest pain is substernal in nature, reports that it radiates to his neck bilaterally, reports that the only way he describes chest pain is his chest only hurts him when he takes a deep breath. Patient does have history of PE and DVT, he currently is on Eliquis for this. Patient did take his dose of Eliquis tonight. PFSH Past Medical History Hx Anticoagulant Therapy: Yes (Eliquis) Arthritis: No Asthma: No Autoimmune Disease: No Anxiety: Yes Depression: No Heart Rhythm Problems: Yes ( x2 NSTEM & Septic shock Jun 2015) Cancer: No Cardiovascular Problems: Yes (HTN) High Cholesterol: Yes Chemotherapy: No Chest Pain: Yes ( x2 NSTEM & Septic shock Jun 2015) Congestive Heart Failure: No COPD: No Cerebrovascular Accident: No Diabetes: No Diminished Hearing: Yes (bilateral hearing aids) Endocrine: No Gastrointestinal Disorders: Yes (GERD) GERD: Yes Genitourinary: No Hiatal Hernia: No Heparin Induced Thrombocytopen: No Hypertension: Yes Immune Disorder: No Kidney Stones: No Musculoskeletal: Yes (LUMBAR PAIN) Neurologic: Yes (no bilat sensation or movement below umbilicus) Psychiatric: Yes Reproductive: No Respiratory: Yes Migraines: No Radiation Therapy: No Renal Failure: No Seizures: No Sickle Cell Disease: No Sleep Apnea: No Thyroid Disease: No Ulcer: No Tetanus Vaccination: Unknown Influenza Vaccination: No Past Surgical History Abdominal Surgery: Yes (CHOLECYSTECTOMY; gallbladder removed) AICD: No Arteriovenous Shunt: No Cardiac Surgery: No Ear Surgery: No Endocrine Surgery: No Eye Surgery: Yes (bilateral cataracts) Genitourinary Surgery: No Gynecologic Surgery: No Insulin Pump: No Joint Replacement: No Neurologic Surgery: Yes (T6-T8 Lami; T6-T7 discectomy) Oral Surgery: No Pacemaker: No Thoracic Surgery: No Other Surgery: Yes Social History Alcohol Use: Yes (occasionally) Tobacco Use: No Substance Use: No Allergies-Medications (Allergen,Severity, Reaction): Coded Allergies: No Known Allergies (Unverified , 12/18/16) Reported Meds & Prescriptions Reported Meds & Active Scripts Active Baclofen 20 Mg Tab 20 Mg PO BID Gabapentin 100 Mg Cap 200 Mg PO BID Eliquis (Apixaban) 5 Mg Tab 5 Mg PO BID Eliquis (Apixaban) 5 Mg Tab 10 Mg PO BID Ceftin (Cefuroxime Axetil) 500 Mg Tab 500 Mg PO Q12HR Reported Protonix (Pantoprazole Sodium) 40 Mg Tab 40 Mg PO DAILY Allopurinol 300 Mg Tab 300 Mg PO DAILY Baclofen 10 Mg Tab 10 Mg PO BID@0900, 1300 PRN Carvedilol 3.125 Mg Tab 3.125 Mg PO Q12HR Escitalopram (Escitalopram Oxalate) 10 Mg Tab 10 Mg PO DAILY Gabapentin 100 Mg Cap 200 Mg PO BID Hydrocodone-Acetaminophen 10-325 mg Tab 1-2 Tab PO Q4H PRN Lisinopril 10 Mg Tab 10 Mg PO BID Nystatin Topical (Nystatin) 100,000 unit/gm Cream 1 Applic TOPICAL TID Tizanidine (Tizanidine HCl) 4 Mg Cap 4 Mg PO HS Review of Systems General / Constitutional: No: Fever Eyes: No: Visual changes HENT: No: Headaches Cardiovascular: Positive: Chest Pain or Discomfort Respiratory: Positive: Shortness of Breath Gastrointestinal: No: Abdominal Pain Genitourinary: No: Dysuria Musculoskeletal: No: Pain Skin: No Rash Neurologic: No: Weakness Psychiatric: No: Depression Endocrine: No: Polydipsia Hematologic/Lymphatic: No: Easy Bruising Physical Exam Narrative GENERAL: mild distress, morbidly obese SKIN: Focused skin assessment warm/dry. HEAD: Atraumatic. Normocephalic. EYES: Pupils equal and round. No scleral icterus. No injection or drainage. ENT: No nasal bleeding or discharge. Mucous membranes pink and moist. NECK: Trachea midline. No JVD. CARDIOVASCULAR: Regular rate and rhythm. No murmur appreciated. RESPIRATORY: No accessory muscle use. Clear to auscultation. Breath sounds equal bilaterally. GASTROINTESTINAL: Abdomen soft, non-tender, nondistended. Hepatic and splenic margins not palpable. MUSCULOSKELETAL: No obvious deformities. No clubbing. No cyanosis. No edema. NEUROLOGICAL: Awake and alert. No obvious cranial nerve deficits. Motor grossly within normal limits. Normal speech. PSYCHIATRIC: Appropriate mood and affect; insight and judgment normal. Data Data Last Documented VS Vital Signs Date Time Temp Pulse Resp B/P (MAP) Pulse Ox O2 Delivery O2 Flow Rate FiO2 02/12/17 00:01 98.3 91 16 98/61 (73) 93 Room Air Orders Orders Troponin I (02/12/17 00:42) Ckmb (Isoenzyme) Profile (02/12/17 00:42) Complete Blood Count With Diff (02/12/17 00:42) I-Stat Profile (02/12/17 00:42) I-Stat Creatinine (02/12/17 00:42) Magnesium (Mg) (02/12/17 00:42) Prothrombin Time / Inr (Pt) (02/12/17 00:42) Act Partial Throm Time (Ptt) (02/12/17 00:42) Chest, Single Ap (02/12/17 00:42) Electrocardiogram (02/12/17 00:42) Oxygen Administration (02/12/17 00:42) Iv Access Insert/Monitor (02/12/17 00:42) Oximetry (02/12/17 00:42) Aspirin Chew (Aspirin Chew) (02/12/17 00:42) Ct Pulmonary Angiogram (02/12/17 00:43) Heparin Infusion CATINA.Q1H (02/12/17 00:45) Heparin-D5w 25,000 U/250 Ml (Heparin-D5w (02/12/17 00:45) Occult Blood (Hemoccult) Stool (02/12/17 00:45) Consult Cardiology (02/12/17 ) Sodium Chlor 0.9% 1000 Ml Inj (Ns 1000 M (02/12/17 01:15) CKMB (02/12/17 00:34) CKMB% (02/12/17 00:34) Iohexol 350 Inj (Omnipaque 350 Inj) (02/12/17 01:34) (Hub Use Only)Inp Phy Cons/Ref (02/12/17 ) Sodium Chlor 0.9% 1000 Ml Inj (Ns 1000 M (02/12/17 02:15) Admit Order (Ed Use Only) (02/12/17 02:12) Labs Laboratory Tests Test 02/12/17 00:34 White Blood Count 11.6 TH/MM3 Red Blood Count 5.14 MIL/MM3 Hemoglobin 15.6 GM/DL Bedside Hemoglobin 16.3 G/DL Hematocrit 46.5 % Bedside Hematocrit 48.0 % Mean Corpuscular Volume 90.4 FL Mean Corpuscular Hemoglobin 30.3 PG Mean Corpuscular Hemoglobin Concent 33.5 % Red Cell Distribution Width 17.4 % Platelet Count 226 TH/MM3 Mean Platelet Volume 8.5 FL Neutrophils (%) (Auto) 79.5 % Lymphocytes (%) (Auto) 8.3 % Monocytes (%) (Auto) 9.7 % Eosinophils (%) (Auto) 1.9 % Basophils (%) (Auto) 0.6 % Neutrophils # (Auto) 9.2 TH/MM3 Lymphocytes # (Auto) 1.0 TH/MM3 Monocytes # (Auto) 1.1 TH/MM3 Eosinophils # (Auto) 0.2 TH/MM3 Basophils # (Auto) 0.1 TH/MM3 CBC Comment DIFF FINAL Differential Comment Prothrombin Time 11.5 SEC Prothromb Time International Ratio 1.0 RATIO Activated Partial Thromboplast Time 31.4 SEC Bedside Sodium 137 MMOL/L Bedside Potassium 4.3 MMOL/L Bedside Chloride 102 MMOL/L Bedside Blood Urea Nitrogen 22 MG/DL Bedside Creatinine 0.9 MG/DL Bedside Glucose 136 MG/DL Magnesium Level 1.7 MG/DL Total Creatine Kinase 126 U/L Creatine Kinase MB 1.8 NG/ML Troponin I LESS THAN 0.02 NG/ML MDM Medical Decision Making Medical Screen Exam Complete: Yes Emergency Medical Condition: Yes Medical Record Reviewed: Yes Interpretation(s) EKG at 0028: NSR at 87bpm, qt/qtc: 352/397, st seg elevation V1-V3 EKG at 0052: NSR at 79bpm, qt/qtc: 365/400, st seg elevation V1 - V3 Vital Signs Date Time Temp Pulse Resp B/P (MAP) Pulse Ox O2 Delivery O2 Flow Rate FiO2 02/12/17 00:01 98.3 91 16 98/61 (73) 93 Room Air Differential Diagnosis Differential includes STEMI, ACS, arrhythmia, PE, electrolyte abnormality Narrative Course Patient was placed on a last picker upon arrival to emergency room. A STEMI alert was called overhead. Case was reviewed with Dr. sanchez who is the brick extruder operator on-call. Patient with chest pain only with deep inspiration, patient reports that he is currently chest pain free at this time, EKG is not classic for STEMI given J point elevation. Decision was to cancel offset label rewinder team tonight and start heparin drip, obtain PE study and re-evaluate if there is further PE's causing symptoms and admit to [facility]. Will keep patient NPO over night as there is a possibility for cardiac catheterization tomorrow morning. A reviewed all the concerns with patient and his in detail, patient adamantly reports that he has chest pain-free at this time. Reports "I don't feel the tightness in my chest anymore." Laboratory Tests Test 02/12/17 00:34 White Blood Count 11.6 TH/MM3 (4.0-11.0) Red Blood Count 5.14 MIL/MM3 (4.50-5.90) Hemoglobin 15.6 GM/DL (13.0-17.0) Bedside Hemoglobin 16.3 G/DL (12.0-17.0) Hematocrit 46.5 % (39.0-51.0) Bedside Hematocrit 48.0 % (38.0-51.0) Mean Corpuscular Volume 90.4 FL (80.0-100.0) Mean Corpuscular Hemoglobin 30.3 PG (27.0-34.0) Mean Corpuscular Hemoglobin Concent 33.5 % (32.0-36.0) Red Cell Distribution Width 17.4 % (11.6-17.2) Platelet Count 226 TH/MM3 (150-450) Mean Platelet Volume 8.5 FL (7.0-11.0) Neutrophils (%) (Auto) 79.5 % (16.0-70.0) Lymphocytes (%) (Auto) 8.3 % (9.0-44.0) Monocytes (%) (Auto) 9.7 % (0.0-8.0) Eosinophils (%) (Auto) 1.9 % (0.0-4.0) Basophils (%) (Auto) 0.6 % (0.0-2.0) Neutrophils # (Auto) 9.2 TH/MM3 (1.8-7.7) Lymphocytes # (Auto) 1.0 TH/MM3 (1.0-4.8) Monocytes # (Auto) 1.1 TH/MM3 (0-0.9) Eosinophils # (Auto) 0.2 TH/MM3 (0-0.4) Basophils # (Auto) 0.1 TH/MM3 (0-0.2) CBC Comment DIFF FINAL Differential Comment Prothrombin Time 11.5 SEC (9.8-11.6) Prothromb Time International Ratio 1.0 RATIO Activated Partial Thromboplast Time 31.4 SEC (24.3-30.1) Bedside Sodium 137 MMOL/L (138-146) Bedside Potassium 4.3 MMOL/L (3.5-4.9) Bedside Chloride 102 MMOL/L (98-109) Bedside Blood Urea Nitrogen 22 MG/DL (8-26) Bedside Creatinine 0.9 MG/DL (0.8-1.3) Bedside Glucose 136 MG/DL (60-95) Magnesium Level 1.7 MG/DL (1.5-2.5) Total Creatine Kinase 126 U/L (39-308) Creatine Kinase MB 1.8 NG/ML (0.5-3.6) Troponin I LESS THAN 0.02 NG/ML Last Impressions CT Angiography 02/12/1742 Signed Impressions: Service Date/Time: Sunday, February 12, 2017 01:13 - CONCLUSION: 1. No acute pulmonary emboli. The previously seen emboli have resolved. 2. Small right effusion. This has decreased in size from the prior exam. 3. Rounded consolidation involving the right lower lobe felt to relate to rounded atelectasis. 4. 6 mm left lower lobe pulmonary nodule. This is new from the prior exam. Current guidelines suggest a repeat CT of the thorax in 6 months. Allan Villareal Jr., MD Chest X-Ray 02/12/1741 Signed Impressions: Service Date/Time: Sunday, February 12, 2017 00:52 - CONCLUSION: Right lower lobe infiltrate. Allan Villareal Jr., MD Patient remains chest pain-free at this time. Plan to admit to [facility] for unstable angina. Case reviewed Dr. Lynn who accepts patient to service. Critical Care Narrative Aggregate critical care time was 30 minutes. Time to perform other separately billable procedures was not included in the critical care time. My time did not include minutes spent treating any other patients simultaneously or on activities that did not directly contribute to the patient's treatment. The services I provided to this patient were to treat and/or prevent clinically significant deterioration that could result in: , decompensation, deterioration I provided critical care services requiring my management, as noted below: Chart data review, documentation time, medication orders and management, vital sign assessments/reviewing monitor data, ordering and reviewing lab tests, ordering and interpreting/reviewing x-rays and diagnostic studies, care of the patient and discussion of the patient with the admitting physicians. Diagnosis Primary Impression: Unstable angina Admitting Information Admitting Physician Requests: Lizeth Marroquin DO Feb 12, 2017 01:06
[2017-02-12] MEDS ORDERED: SODIUM CHLOR 0.9% 1000 ML INJ 1,000 ML IV ONE ×2 (01:15→02:15)
[2017-02-12 01:26] LABS: CREATINE KINASE 126 U/L (39-308); MAGNESIUM 1.7 MG/DL (1.5-2.5)
[2017-02-12] MEDS ORDERED: IOHEXOL 350 MG/ML 10 ML VIAL (for RAD DIAG) IVCONTRAST ONE (01:34)
[2017-02-12 01:39] LABS: CKMB 1.8 NG/ML (0.5-3.6)
--- NOTE | 2017-02-12 01:50 | RADRPT ---
EXAM DATE/TIME: 02/12/2017 01:13 [place] COMPARISON: CT PULMONARY ANGIOGRAM, July 20, 2016, 15:17. INDICATIONS : Chest pain, short of breath. IV CONTRAST: 75 cc Omnipaque 350 (iohexol) IV RADIATION DOSE: 25.57 CTDIvol (mGy) MEDICAL HISTORY : Myocardial infarction. Cardiovascular disease SURGICAL HISTORY : Non-responsive. ENCOUNTER: Initial ACUITY: 1 day PAIN SCALE: 10/10 LOCATION: chest TECHNIQUE: Volumetric scanning of the chest was performed using a pulmonary embolism protocol MIP images were re constructed. Using automated exposure control and adjustment of the mA and/or kV according to patien t size, radiation dose was kept as low as reasonably achievable to obtain optimal diagnostic quality images. DICOM format image data is available electronically for review and comparison. Follow-up recommendations for detected pulmonary nodules are based at a minimum on nodule size and pa tient risk factors according to Fleischner Society Guidelines. FINDINGS: PULMONARY ARTERIES: No filling defects are seen in the pulmonary arteries through the segmental level. LUNGS: Rounded atelectasis is seen involving the basilar segment of the right lower lobe. This is similar to the prior exam. The remaining lungs are clear. Note is made of a 6 mm nodule within the medial basil ar segment of the left lower lobe area and this is new from the prior study. PLEURAE: Tiny right pleural effusion. This is smaller than the prior exam. MEDIASTINUM: There is good visualization of the great vessels of the middle mediastinum. 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 No evidence of mediastinal or hilar adenopathy/mass. MUSCULOSKELETAL: Within normal limits for patient age. MISCELLANEOUS: The visualized upper abdominal organs demonstrate no acute abnormality. CONCLUSION: 1. No acute pulmonary emboli. The previously seen emboli have resolved. 2. Small right effusion. This has decreased in size from the prior exam. 3. Rounded consolidation involving the right lower lobe felt to relate to rounded atelectasis. 4. 6 mm left lower lobe pulmonary nodule. This is new from the prior exam. Current guidelines suggest a repeat CT of the thorax in 6 months. Allan Villareal Jr., MD on February 12, 2017 at 1:45 Board Certified Radiologist. This report was verified electronically.
[2017-02-12] MEDS ORDERED: SODIUM CHLORIDE 0.9% FLUSH 10 ML FLUSH IV FLUSH PRN (02:15)
[2017-02-12] MEDS ORDERED: NALOXONE HCL 0.4 MG/ML AMP IV PUSH PRN (02:15)
--- NOTE | 2017-02-12 03:02 | HHI.HP ---
[facility] Jerson Keller MD Admission Diagnosis Unstable Angina Diagnoses: Travel History International Travel<30 Days: No Contact w/Intl Traveler <30 Da: No Traveled to Known Affected Are: No History of Present Illness hx from patient, ER communication and review of med records chest tightness with radiation to neck started yesterday then in am worse when taking a breath was short of breath worse pain when lying down, sitting up no cough m, no fever no nausea no vomiting no dairrhea no blood in stool or urine self cath him does not have architectural sales consultant not on diuretics last echo in 07/2016 showed grade 1 diastolic dysfunction Review of Systems Except as stated in HPI: all other systems reviewed are Neg Past Family Social History Past Medical History htn grade I diastolic failure by echo 07/2016 PE spinal cord injury from back surgery- 06/2015 Past Surgical History back surgery sciatica - cyst from one of the vertebrae out fatty tumor from shoulder taken out cholecystectomy appendectomy Allergies: Coded Allergies: No Known Allergies (Unverified , 12/18/16) Family History mother- throat or lung cancer grandmother maternal - diabetic Social History no smoking ever no drinking etoh no drugs Physical Exam Vital Signs Vital Signs Date Time Temp Pulse Resp B/P (MAP) Pulse Ox O2 Delivery O2 Flow Rate FiO2 02/12/17 00:01 98.3 91 16 98/61 (73) 93 Room Air Physical Exam GENERAL: This is a well-nourished, well-developed patient, in no apparent distress. SKIN: Sacral decubiti. Unable to examine due to patient's body habitus. HEAD: Atraumatic. Normocephalic. No temporal or scalp tenderness. EYES: . No scleral icterus. No injection or drainage. ENT: Nose without bleeding, purulent drainage or septal hematoma.. Airway patent. NECK: Trachea midline. No JVD CARDIOVASCULAR: Regular rate and rhythm without murmurs, gallops, or rubs. RESPIRATORY: Clear to auscultation. Breath sounds equal bilaterally. No wheezes , rales, or rhonchi. GASTROINTESTINAL: Abdomen soft, non-tender, nondistended.No guarding. MUSCULOSKELETAL: Extremities without clubbing, cyanosis, or edema. No calf tenderness. NEUROLOGICAL: Awake and alert. Normal speech. Bilateral lower extremity paralysis Laboratory Laboratory Tests Test 02/12/17 00:34 White Blood Count 11.6 Red Blood Count 5.14 Hemoglobin 15.6 Bedside Hemoglobin 16.3 Hematocrit 46.5 Bedside Hematocrit 48.0 Mean Corpuscular Volume 90.4 Mean Corpuscular Hemoglobin 30.3 Mean Corpuscular Hemoglobin Concent 33.5 Red Cell Distribution Width 17.4 Platelet Count 226 Mean Platelet Volume 8.5 Neutrophils (%) (Auto) 79.5 Lymphocytes (%) (Auto) 8.3 Monocytes (%) (Auto) 9.7 Eosinophils (%) (Auto) 1.9 Basophils (%) (Auto) 0.6 Neutrophils # (Auto) 9.2 Lymphocytes # (Auto) 1.0 Monocytes # (Auto) 1.1 Eosinophils # (Auto) 0.2 Basophils # (Auto) 0.1 CBC Comment DIFF FINAL Differential Comment Prothrombin Time 11.5 Prothromb Time International Ratio 1.0 Activated Partial Thromboplast Time 31.4 Bedside Sodium 137 Bedside Potassium 4.3 Bedside Chloride 102 Bedside Blood Urea Nitrogen 22 Bedside Creatinine 0.9 Bedside Glucose 136 Magnesium Level 1.7 Total Creatine Kinase 126 Creatine Kinase MB 1.8 Troponin I LESS THAN 0.02 Result Diagram: 02/12/17 0034 Caprini VTE Risk Assessment Caprini VTE Risk Assessment: Mod/High Risk (score >= 2) Caprini Risk Assessment Model Point Value = 1 Point Value = 2 Point Value = 3 Point Value = 5 Age 41-60 Minor surgery BMI > 25 kg/m2 Swollen legs Varicose veins or History of unexplained or recurrent spontaneous Oral contraceptives or hormone replacement Sepsis (< 1 month) Serious lung disease, including pneumonia (< 1 month) Abnormal pulmonary function Acute myocardial infarction Congestive heart failure (< 1 month) History of inflammatory bowel disease Medical patient at bed rest Age 61-74 Arthroscopic surgery Major open surgery (> 45 min) Laparoscopic surgery (> 45 min) Malignancy Confined to bed (> 72 hours) Immobilizing plaster cast Central venous access Age >= 75 History of VTE Family history of VTE Factor V Leiden Prothrombin [id number] Lupus anticoagulant Anticardiolipin antibodies Elevated serum homocysteine Heparin-induced thrombocytopenia Other congenital or acquired thrombophilia Stroke (< 1 month) Elective arthroplasty Hip, pelvis, or leg fracture Acute spinal cord injury (< 1 month) Prophylaxis Regimen Total Risk Factor Score Risk Level Prophylaxis Regimen 0-1 Low Early ambulation 2 Moderate Order ONE of the following: *Sequential Compression Device (SCD) *Heparin 5000 units SQ BID 3-4 Higher Order ONE of the following medications: *Heparin 5000 units SQ TID *Enoxaparin/Lovenox 40 mg SQ daily (WT < 150 kg, CrCl > 30 mL/min) *Enoxaparin/Lovenox 30 mg SQ daily (WT < 150 kg, CrCl > 10-29 mL/min) *Enoxaparin/Lovenox 30 mg SQ BID (WT < 150 kg, CrCl > 30 mL/min) AND/OR *Sequential Compression Device (SCD) 5 or more Highest Order ONE of the following medications: *Heparin 5000 units SQ TID (Preferred with Epidurals) *Enoxaparin/Lovenox 40 mg SQ daily (WT < 150 kg, CrCl > 30 mL/min) *Enoxaparin/Lovenox 30 mg SQ daily (WT < 150 kg, CrCl > 10-29 mL/min) *Enoxaparin/Lovenox 30 mg SQ BID (WT < 150 kg, CrCl > 30 mL/min) AND *Sequential Compression Device (SCD) Assessment and Plan Assessment and Plan Impression: Chest pain suggestive of cardiac etiology. Possible unstable angina Abnormal EKGs. Initially it was called a STEMI alert by ER physician. Instructor Adjunct Pharmacy Technician has reviewed EKGs and called off on STEMI. History of pulmonary embolism Plan: Serial cardiac enzymes and EKGs. Heparin drip. nitro when necessary sublingual. Nothing by mouth. Plan for angiogram in a.m. per architectural sales consultant. CT pulmonary angiogram obtained. Personally reviewed. No evidence of acute pulmonary embolism. Prior old embolus and has also resolved. No evidence of pneumothorax/pleural effusion/pneumonia. Resume home meds. Wound care consult for sacral decubiti. case management for discharge planning. Discussed Condition With patient, ER MD, nursing staff Physician Certification 2 Midnight Certification Type: Admission for Inpatient Services Order for Inpatient Services The services are ordered in accordance with Medicare regulations or non- Medicare payer requirements, as applicable. In the case of services not specified as inpatient-only, they are appropriately provided as inpatient services in accordance with the 2-midnight benchmark. Estimated LOS (days): 2 days is the estimated time the patient will need to remain in the hospital, assuming treatment plan goals are met and no additional complications. Post-Hospital Plan: Home Aylin Lynn MD Feb 12, 2017 03:02
[2017-02-12] MEDS ORDERED: BACL20TA PO (04:59)
[2017-02-12] MEDS ORDERED: CARV25TA PO (04:59)
[2017-02-12] MEDS ORDERED: AMLO5TAB2 PO (04:59)
[2017-02-12] MEDS ORDERED: LACTCAP8 PO (04:59)
[2017-02-12] MEDS ORDERED: LISI-515 PO (04:59)
[2017-02-12] MEDS ORDERED: ACETAMINOPHEN/HYDROcodone 325 MG/10 MG TAB PO PRN (08:00)
[2017-02-12] MEDS ORDERED: BACLOFEN 20 MG TAB PO PRN (08:00)
[2017-02-12] MEDS ORDERED: NITROGLYCERIN 0.4 MG SL 25 TABS/BTL SL PRN (08:00)
[2017-02-12 08:06] LABS: CREATINE KINASE 86 U/L (39-308)
[2017-02-12] MEDS ORDERED: ESCITALOPRAM OXALATE 10 MG TAB PO SCH (09:00)
[2017-02-12] MEDS ORDERED: amLODIPine BESYLATE 5 MG TAB PO SCH (09:00)
[2017-02-12] MEDS ORDERED: ALLOPURINOL 300 MG TAB PO SCH (09:00)
--- NOTE | 2017-02-12 09:54 | PD.CONS ---
HPI Service CV Consult Requested By Reason for Consult chest pain Primary Care Physician Jerson Keller MD History of Present Illness Here with h/o DVT and PE for chest pain. He states this started yesterday morning after he go out of the shower and he noticed every time he took a breath he was having back and shoulder pain. Later that day it resolved but then returned. This morning it has resolved again, He denies any exertional chest pain, shortness of breath or palpitations (Rian Titus) Review of Systems Consitutional: DENIES: Fatigue, Fever, Chills, Weight gain, Weight loss Eyes: DENIES: Amaurosis F[place], Change in vision HEENT: DENIES: Lightheadedness, Change in hearing Respiratory: DENIES: See HPI, Cough, Snoring, Shortness of breath, Wheezing, Sputum production Cardiovascular: COMPLAINS OF: See HPI Gastrointestinal: DENIES: Nausea, Vomiting, Change in bowel habits, Reflux, Bloody stools, Melena Genitourinary: DENIES: Urinary incontinence, Difficulty voiding Integumentary: DENIES: Rash Neurologic: DENIES: Tingling or numbness, Memory problems, Poor Balance, Stroke symptoms Musculoskeletal: DENIES: Joint pain, Muscle pain, Limited range of motion, Back pain Psychiatric: DENIES: Anxiety, Depression, Sleep disturbances Hematologic: DENIES: Bruising tendencies, Bleeding tendencies Endocrine: DENIES: Weight gain, Weight loss, Thyroid disease (Rian Titus ) Past Family Social History Allergies: Coded Allergies: No Known Allergies (Unverified , 12/18/16) Past Medical History htn grade I diastolic failure by echo 07/2016 PE spinal cord injury from back surgery- 06/2015 Past Surgical History back surgery sciatica - cyst from one of the vertebrae out fatty tumor from shoulder taken out cholecystectomy appendectomy Reported Medications Reported Meds & Active Scripts Active Eliquis (Apixaban) 5 Mg Tab 5 Mg PO BID Reported Probiotic (Lactobacillus Acidophilus) 10 Billion Cell Cap 1 Cap PO AC BREAKFAST Baclofen 20 Mg Tab 20 Mg PO TID PRN Amlodipine (Amlodipine Besylate) 5 Mg Tab 5 Mg PO DAILY Carvedilol 25 Mg Tab 25 Mg PO BID Lisinopril 20 Mg Tab 20 Mg PO BID Allopurinol 300 Mg Tab 300 Mg PO DAILY Escitalopram (Escitalopram Oxalate) 10 Mg Tab 10 Mg PO DAILY Gabapentin 100 Mg Cap 200 Mg PO BID Hydrocodone-Acetaminophen 10-325 mg Tab 1-2 Tab PO Q4H PRN Tizanidine (Tizanidine HCl) 4 Mg Cap 4 Mg PO HS Active Ordered Medications Current Medications Medications (Trade) Dose Ordered Sig/Erna Route Start Time Stop Time Status Last Admin Heparin Sodium/ Dextrose 250 ml @ 15 mls/hr TITRATE PRN IV 02/12/17 00:45 02/12/17 04:00 (NS Flush) 2 ml UNSCH PRN IV FLUSH 02/12/17 02:15 (NS Flush) 2 ml BID IV FLUSH 02/12/17 09:00 (Narcan Inj) 0.4 mg UNSCH PRN IV PUSH 02/12/17 02:15 (Lipitor) 80 mg ONCE ONCE PO 02/12/17 21:00 02/12/17 21:01 (Lipitor) 80 mg HS PO 02/13/17 21:00 (Nitrostat Sl) 0.4 mg Q5M PRN SL 02/12/17 08:00 (Zyloprim) 300 mg DAILY PO 02/12/17 09:00 (Norvasc) 5 mg DAILY PO 02/12/17 09:00 (Lioresal) 20 mg TID PRN PO 02/12/17 08:00 (Coreg) 25 mg BID PO 02/12/17 09:00 (Lexapro) 10 mg DAILY PO 02/12/17 09:00 (Neurontin) 200 mg BID PO 02/12/17 09:00 ([place] 10-325 Mg) 1 tab Q4H PRN PO 02/12/17 08:00 (Lactinex) 1 tab AC BREAKFAST PO 02/13/17 07:00 (Prinivil) 20 mg BID PO 02/12/17 09:00 (Zanaflex) 4 mg HS PO 02/12/17 21:00 Family History noncontributory Social History no smoking ever no drinking EtOH no substance abuse (Rian Titus) Physical Exam Vital Signs Vital Signs Date Time Temp Pulse Resp B/P (MAP) Pulse Ox O2 Delivery O2 Flow Rate FiO2 02/12/17 08:00 74 02/12/17 08:00 97.7 74 16 128/66 (86) 100 02/12/17 05:48 68 12 110/66 (81) 100 Nasal Cannula 3.00 02/12/17 02:00 72 16 75/48 (57) 94 Room Air 02/12/17 00:35 98 Nasal Cannula 3.00 02/12/17 00:01 98.3 91 16 98/61 (73) 93 Room Air Physical Exam GENERAL: Well-nourished, well-developed patient in no apparent distress. NECK: No JVD. No carotid bruit. CARDIOVASCULAR: Regular rate and rhythm. S1/S2 no murmur, rub, or gallop. RESPIRATORY: No accessory muscle use. Clear to auscultation. Breath sounds equal bilaterally. GASTROINTESTINAL: Abdomen soft, non-tender, nondistended. MUSCULOSKELETAL: Extremities without clubbing, cyanosis, or edema. Laboratory Laboratory Tests Test 02/12/17 00:34 02/12/17 06:20 White Blood Count 11.6 Red Blood Count 5.14 Hemoglobin 15.6 Bedside Hemoglobin 16.3 Hematocrit 46.5 Bedside Hematocrit 48.0 Mean Corpuscular Volume 90.4 Mean Corpuscular Hemoglobin 30.3 Mean Corpuscular Hemoglobin Concent 33.5 Red Cell Distribution Width 17.4 Platelet Count 226 Mean Platelet Volume 8.5 Neutrophils (%) (Auto) 79.5 Lymphocytes (%) (Auto) 8.3 Monocytes (%) (Auto) 9.7 Eosinophils (%) (Auto) 1.9 Basophils (%) (Auto) 0.6 Neutrophils # (Auto) 9.2 Lymphocytes # (Auto) 1.0 Monocytes # (Auto) 1.1 Eosinophils # (Auto) 0.2 Basophils # (Auto) 0.1 CBC Comment DIFF FINAL Differential Comment Prothrombin Time 11.5 Prothromb Time International Ratio 1.0 Activated Partial Thromboplast Time 31.4 Bedside Sodium 137 Bedside Potassium 4.3 Bedside Chloride 102 Bedside Blood Urea Nitrogen 22 Bedside Creatinine 0.9 Bedside Glucose 136 Magnesium Level 1.7 Total Creatine Kinase 126 86 Creatine Kinase MB 1.8 Troponin I LESS THAN 0.02 LESS THAN 0.02 (Rian Titus) Result Diagram: 02/12/17 0034 Assessment and Plan Problem List: (1) Chest pain ICD Codes: R07.9 - Chest pain, unspecified Status: Acute (2) HTN (hypertension) ICD Codes: I10 - Essential (primary) hypertension Status: Acute Assessment and Plan Pleuritic chest pain - diffuse ST elevation on ECG r/o pericarditis, get 2D echo and sed rate and go from there HTN - well controlled (Rian Titus) Assessment and Plan agree with above trop neg classic pleuritis if 2d echo unremarkable, DC home with NSAIDS x 5-7 days cont anticoagulation FU PCP (Harry Frost MD) Rian Titus Feb 12, 2017 09:54 Harry Frost MD Feb 12, 2017 10:10
[2017-02-12] MEDS: SODIUM CHLORIDE 0.9% FLUSH 10 ML FLUSH IV FLUSH SCH ×2 (11:20→20:33)
[2017-02-12] MEDS: LISINOPRIL 20 MG TAB PO SCH ×2 (11:22→20:29)
[2017-02-12] MEDS: CARVEDILOL 12.5 MG TAB PO SCH ×2 (11:24→20:29)
[2017-02-12 12:05] LABS: APTT (PATIENT) 41.2 SEC (24.3-30.1)
[2017-02-12 12:34] LABS: CREATINE KINASE 84 U/L (39-308)
--- NOTE | 2017-02-12 12:52 | EKG ---
Date Performed: 02/12/2017 Time Performed: 00:52:18 PTAGE: 66 years EKG: Sinus rhythm ST ELEVATION, CONSIDER INFERIOR INJURY ACUTE MO PREVIOUS TRACING : 02/12/2017 00.28 Consider inferolateral injury DOCTOR: Donnie Jones Interpretating Date/Time 02/12/2017 12:50:47
--- NOTE | 2017-02-12 12:53 | EKG ---
Date Performed: 02/12/2017 Time Performed: 06:19:49 PTAGE: 66 years EKG: Sinus rhythm ST ELEVATION, CONSIDER ANTERIOR INJURY MARKED ST ELEVATION, CONSIDER INFERIOR INJURY ACUTE VT PREVIOUS TRACING : 02/12/2017 00.52 Consider inferolateral injury. DOCTOR: Donnie Jones Interpretating Date/Time 02/12/2017 12:51:01
[2017-02-12] MEDS: GABAPENTIN 100 MG CAP PO SCH ×2 (13:02→20:33)
--- NOTE | 2017-02-12 13:34 | PD.WCN.NOT ---
Wound Consult Description: Received consult for pressure ulcer to sacral area from Doctor Leah. Communicated with: Lobito Goldsmith [place] Recommendation: Please cleanse buttock area with soap and water and pat dry before applying thick layer of Calazime barrier cream and leave open to air. Please turn patient every 2 hours and PRN for comfort Additional Information: Patient seen on 4 central for evaluation of pressure ulcer to sacral area. Patient turned to R side first with the assistance of sign writer letterer or painter. Removed brief to reveal mild blanchable erythema and small fissure to medial gluteal cleft.Patient has barrier cream in place. No pressure injuries seen at this time. Ultra sorb pads recommended. Do not recommend briefs, patient is non ambulatory. Applied thick layer of barrier cream. Keith GURROLA 4 [place] and sign writer letterer or painter positioned patient to L side with pillows placed under R side for support. [facility] Goode [facility] Feb 12, 2017 13:34
[2017-02-12] MEDS ORDERED: NAPR375T PO (13:40)
[2017-02-12] MEDS ORDERED: OMEP20TA PO (13:40)
--- NOTE | 2017-02-12 16:30 | ECHRPT ---
Indication: CHEST PAIN CONCLUSIONS Poo echocardiographic windows Normal left ventricular size and function Estimated EF 50% Mild concentric left ventricular hypertrophy No significant valvulopathies. BP: 140 / 71 HR: Rhythm: Sinus MEASUREMENTS (Male / Female) Normal Values Technical Quality:Very technically difficult study 2D ECHO LV Diastolic Diameter PLAX 4.2 cm 4.2 - 5.9 / 3.9 - 5.3 cm LV Systolic Diameter PLAX 2.8 cm IVS Diastolic Thickness 1.1 cm 0.6 - 1.0 / 0.6 - 0.9 cm LVPW Diastolic Thickness 1.1 cm 0.6 - 1.0 / 0.6 - 0.9 cm LV Relative Wall Thickness 0.5 LVOT Diameter 2.2 cm Aortic Root Diameter 2.7 cm LA Systolic Diameter LX 2.7 cm 3.0 - 4.0 / 2.7 - 3.8 cm DOPPLER AV Peak Velocity 89.6 cm/s AV Peak Gradient 3.2 mmHg AV Mean Gradient 2.0 mmHg AV Velocity Time Integral 15.2 cm LVOT Peak Velocity 45.9 cm/s LVOT Peak Gradient 0.8 mmHg LVOT Velocity Time Integral 9.5 cm AV Area Cont Eq vti 2.4 cm AV Area Cont Eq pk 1.9 cm Mitral E Point Velocity 76.0 cm/s Mitral A Point Velocity 65.6 cm/s Mitral E to A Ratio 1.2 LV E' Lateral Velocity 5.4 cm/s Mitral E to LV E' Lateral Ratio 14.2 LV E' Septal Velocity 5.9 cm/s Mitral E to LV E' Septal Ratio 13.0 PV Peak Velocity 53.4 cm/s PV Peak Gradient 1.1 mmHg FINDINGS LEFT VENTRICLE Normal left ventricular size. Mild concentric left ventricular hypertrophy. The left ventricular systolic function is normal with an estimated ejection fraction in the range of 60-65%. Antonio Gilman MD (Electronically Signed) Final Date:12 February 2017 16:29
--- NOTE | 2017-02-12 16:59 | HHI.PR ---
Subjective Remarks Follow up for chest pain. Patient is currently doing well. No chest pain, SOB, fever, chills. Currently on heparin drip. Objective Vitals Vital Signs Date Time Temp Pulse Resp B/P (MAP) Pulse Ox O2 Delivery O2 Flow Rate FiO2 02/12/17 15:59 57 17 125/70 (88) 97 02/12/17 13:00 71 02/12/17 12:00 75 02/12/17 11:00 97.7 73 16 140/71 (94) 100 02/12/17 11:00 73 02/12/17 10:00 66 02/12/17 09:00 71 02/12/17 08:00 74 02/12/17 08:00 97.7 74 16 128/66 (86) 100 02/12/17 07:00 72 02/12/17 05:48 68 12 110/66 (81) 100 Nasal Cannula 3.00 02/12/17 02:00 72 16 75/48 (57) 94 Room Air 02/12/17 00:35 98 Nasal Cannula 3.00 02/12/17 00:01 98.3 91 16 98/61 (73) 93 Room Air Result Diagram: 02/12/17 [address] Angiography 02/12/1742 Signed Impressions: Service Date/Time: Sunday, February 12, 2017 01:13 - CONCLUSION: 1. No acute pulmonary emboli. The previously seen emboli have resolved. 2. Small right effusion. This has decreased in size from the prior exam. 3. Rounded consolidation involving the right lower lobe felt to relate to rounded atelectasis. 4. 6 mm left lower lobe pulmonary nodule. This is new from the prior exam. Current guidelines suggest a repeat CT of the thorax in 6 months. Allan Villareal Jr., MD Chest X-Ray 02/12/17 0042 Signed Impressions: Service Date/Time: Sunday, February 12, 2017 00:52 - CONCLUSION: Right lower lobe infiltrate. Allan Villareal Jr., MD Objective Remarks GENERAL: AOX3, NAD. SKIN: Warm and dry. HEAD: Normocephalic. EYES: No scleral icterus. No injection or drainage. NECK: Supple, trachea midline. No JVD or lymphadenopathy. CARDIOVASCULAR: Regular rate and rhythm without murmurs, gallops, or rubs. RESPIRATORY: Breath sounds equal bilaterally. No accessory muscle use. GASTROINTESTINAL: Abdomen soft, non-tender, nondistended. MUSCULOSKELETAL: No cyanosis, or edema. BACK: Nontender without obvious deformity. No CVA tenderness. Procedures Echo 02/12/2017 CONCLUSIONS Poo echocardiographic windows Normal left ventricular size and function Estimated EF 50% Mild concentric left ventricular hypertrophy No significant valvulopathies. A/P Assessment and Plan Mr. Martinez is a 66 year old male with a history of PE currently on Apixaban who presented to the ED due to chest pain. Cardiology evaluated patient and recommended to treat pleuritis with NSAIDs for 5-7 days if 2D echo unremarkable. Troponins negative. Echo was unremarkable. Patient was subsequently discharged home on NSAIDs. Patient was advised to continue Apixaban. While on NSAIDs, he was also advised to be on PPI. Prescriptions given to patient. Discharge patient to home Condition on discharge: Improved Heart healthy Diet as tolerated Ad Nery activity Rx written: Naproxen 375mg BID X 7 days Omeprazole 20mg Qday Follow-up with primary care physician HANNAH. Russ Landin DO Feb 12, 2017 16:59
[2017-02-12] MEDS ORDERED: ATORVASTATIN 80 MG TAB PO ONE (21:00)
--- NOTE | 2017-02-13 05:17 | EKG ---
Date Performed: 02/12/2017 Time Performed: 12:48:50 PTAGE: 66 years EKG: CONSIDER ACUTE ST ELEVATION DC Sinus rhythm Inferior and lateral ST elevation, CONSIDER ACUTE INFARCT Septal T wave changes are nonspecific Abno rmal ECG PREVIOUS TRACING : 02/12/2017 06.19 DOCTOR: Antonio Gilman Interpretating Date/Time 02/13/2017 05:08:48
[2017-02-13] MEDS ORDERED: LACTOBACILLUS ACIDOPHILUS TAB PO SCH (07:00)
[2017-02-13] MEDS ORDERED: INFLUENZA VIRUS VACCINE (QUADRIVALENT) 0.5 ML SYR IM ONE (10:00)
[2017-02-13] MEDS ORDERED: PNEUMOCOCCAL POLYVALENT INJ 25 MCG/0.5 ML SYR IM ONE (10:00)
[2017-02-13] MEDS ORDERED: ATORVASTATIN 80 MG TAB PO SCH (21:00)
== END 2017-02-12 21:15 | disposition home or self-care (01) | DRG 195 ==
LOC: NEPC 23:57 → NEDA 02-12 02:14 → HCPC 02-12 06:50
PROVIDERS: ADMIT Hospitalist; ATTEND Hospitalist
DX: R09.1 Pleurisy (principal); L89.159 Pressure ulcer of sacral region, unspecified stage; E66.01 Morbid (severe) obesity due to excess calories; I10 Essential (primary) hypertension; E78.5 Hyperlipidemia, unspecified; Z86.711 Personal history of pulmonary embolism; Z86.718 Personal history of other venous thrombosis and embolism; Z79.01 Long term (current) use of anticoagulants; F41.9 Anxiety disorder, unspecified; I25.2 Old myocardial infarction; K21.9 Gastro-esophageal reflux disease without esophagitis; H91.90 Unspecified hearing loss, unspecified ear; Z68.37 Body mass index [BMI] 37.0-37.9, adult
CPT/HCPCS: 71010; 71275; 82435; 82550; 82552; 82565; 82947; 83735; 84132; 84295; 84484; 84520; 85025; 85610; 85652; 85730; 93005; 93306; J1644; J7030; Q9967

== ENCOUNTER 2017-04-29 14:03 | Inpatient (IN) | payer MEDICARE ==
[~2017-04-29] VITALS: Ht 182.9 cm; Wt 148.6 kg
[2017-04-29] VITALS (7 sets, daily range): BP systolic 96–155; BP diastolic 54–76; PULSE 82–106; RESP 20–28; TEMP 97.5–98.8; O2SAT 92–96
[~2017-04-29 14:03] MED LIST changes: +AMLO5TAB2 PO; -BACL10TA PO; +CARV25TA PO; -CARV3.12 PO; -CEFT500T3 PO; +LACTCAP8 PO; +LISI-515 PO; -LISI10TA3 PO; +NAPR-855 PO; -NYST15T TOPICAL; +OMEP20TA93 PO; -PROT40TA PO
--- NOTE | 2017-04-29 14:28 | PD ---
HPI . Chills Chief Complaint: Pain: Acute or Chronic Time Seen by Provider: 14:09 Travel History International Travel<30 days: Yes Contact w/Intl Traveler<30days: [place] Traveled to: [facility] Traveled to known affect area: No History of Present Illness HPI This is a patient with multiple medical issues including hypertension, COPD, hyperlipidemia and previous PE and paraplegia who is brought in by his with the chief complaint of chills, headache and jaw pain. Onset was about an hour and a half ago. He took Tylenol approximately 40 minutes prior to presentation. He has to self cath. His states that she actually does the catheterization. She reports no change in his urine. He denies any cough or shortness of breath. He denies any vomiting or diarrhea. He denies any dental issues. There have been no modifying factors. Symptoms are mild. PFSH Past Medical History Hx Anticoagulant Therapy: Yes (Eliquis) Arthritis: No Asthma: No Autoimmune Disease: No Anxiety: Yes Depression: No Heart Rhythm Problems: Yes ( x2 NSTEM & Septic shock Jun 2015) Cancer: No Cardiovascular Problems: Yes (HTN) High Cholesterol: Yes Chemotherapy: No Chest Pain: Yes Congestive Heart Failure: No COPD: No Cerebrovascular Accident: No Diabetes: No Diminished Hearing: Yes (bilateral hearing aids) Endocrine: No Gastrointestinal Disorders: Yes (GERD) GERD: Yes Genitourinary: No Hiatal Hernia: No Heparin Induced Thrombocytopen: No Hypertension: Yes Immune Disorder: No Kidney Stones: No Musculoskeletal: Yes (LUMBAR PAIN) Neurologic: No Psychiatric: No Reproductive: No Respiratory: Yes Migraines: No Radiation Therapy: No Renal Failure: No Seizures: No Sickle Cell Disease: No Sleep Apnea: No Thyroid Disease: No Ulcer: No Past Surgical History Abdominal Surgery: Yes (gallbladder removed) AICD: No Arteriovenous Shunt: No Cardiac Surgery: No Ear Surgery: No Endocrine Surgery: No Eye Surgery: Yes (cataract) Genitourinary Surgery: No Gynecologic Surgery: No Insulin Pump: No Joint Replacement: No Neurologic Surgery: Yes (T6-T8 [place]; T6-T7 discectomy) Oral Surgery: No Pacemaker: No Thoracic Surgery: No Other Surgery: Yes Social History Alcohol Use: Yes (occasionally) Tobacco Use: No Substance Use: No Allergies-Medications (Allergen,Severity, Reaction): Coded Allergies: No Known Allergies (Unverified , 12/18/16) Reported Meds & Prescriptions Reported Meds & Active Scripts Active Omeprazole 20 Mg Tab 20 Mg PO DAILY Naproxen 375 Mg Tab 375 Mg PO BID 7 Days Eliquis (Apixaban) 5 Mg Tab 5 Mg PO BID Reported Probiotic (Lactobacillus Acidophilus) 10 Billion Cell Cap 1 Cap PO AC BREAKFAST Baclofen 20 Mg Tab 20 Mg PO TID PRN Amlodipine (Amlodipine Besylate) 5 Mg Tab 5 Mg PO DAILY Carvedilol 25 Mg Tab 25 Mg PO BID Lisinopril 20 Mg Tab 20 Mg PO BID Allopurinol 300 Mg Tab 300 Mg PO DAILY Escitalopram (Escitalopram Oxalate) 10 Mg Tab 10 Mg PO DAILY Gabapentin 100 Mg Cap 200 Mg PO BID Hydrocodone-Acetaminophen 10-325 mg Tab 1-2 Tab PO Q4H PRN Tizanidine (Tizanidine HCl) 4 Mg Cap 4 Mg PO HS Review of Systems Except as stated in HPI: all other systems reviewed are Neg General / Constitutional: Positive: Chills HENT: Positive: Headaches, Other (jaw pain) Cardiovascular: No: Chest Pain or Discomfort Respiratory: No: Shortness of Breath Gastrointestinal: Positive: Nausea, No: Vomiting, Diarrhea, Abdominal Pain Genitourinary: Positive: Other (no change in the color or volume of his urine) Skin: Positive Other (the reports paleness at the onset of his symptoms.) , No Rash Neurologic: Positive: Other (paraplegia) Physical Exam Narrative GENERAL: Patient is awake and alert. SKIN: warm/dry. Mottled. HEAD: Normocephalic. Atraumatic. EYES: Pupils equal and round. No scleral icterus. No injection or drainage. ENT: No nasal bleeding or discharge. Mucous membranes pink and moist. No tenderness to percussion of his teeth. No sinus tenderness. No tenderness to palpation of the jaw. NECK: Trachea midline. Full range of motion without pain.. Supple. CARDIOVASCULAR: Regular rate and rhythm. Heart sounds are normal. RESPIRATORY: No accessory muscle use. Clear to auscultation. Breath sounds equal bilaterally. GASTROINTESTINAL: Abdomen soft. Nontender. Bowel sounds present. Nondistended. MUSCULOSKELETAL: No obvious deformities. NEUROLOGICAL: Awake and alert. He does not seem mentally sharp. No obvious cranial nerve deficits. Paraplegia. PSYCHIATRIC: Appropriate mood and affect; insight and judgment poor. He thinks that he is okay to go home. Data Data Last Documented VS Vital Signs Date Time Temp Pulse Resp B/P (MAP) Pulse Ox O2 Delivery O2 Flow Rate FiO2 04/29/17 14:12 98.8 106 28 114/65 (81) 95 Room Air Orders Orders Sepsis Workup Initiated (04/29/17 ) Complete Blood Count With Diff (04/29/17 14:09) Comprehensive Metabolic Panel (04/29/17 14:09) Lactic Acid Sepsis Protocol (04/29/17 14:09) Urinalysis - C+S If Indicated (04/29/17 14:09) Blood Culture (04/29/17 14:09) Chest, Single Ap (04/29/17 14:09) Blood Glucose (04/29/17 14:09) Ecg Monitoring (04/29/17 14:09) Iv Access Insert/Monitor (04/29/17 14:09) Cath For Specimen (04/29/17 14:09) Oximetry (04/29/17 14:09) Oxygen Administration (04/29/17 14:09) Electrocardiogram (04/29/17 ) Troponin I (04/29/17 14:38) Ceftriaxone Inj (Rocephin Inj) (04/29/17 15:00) Azithromycin Inj (Zithromax Inj) (04/29/17 15:00) Sodium Chlor 0.9% 1000 Ml Inj (Ns 1000 M (04/29/17 15:50) Sodium Chlor 0.9% 1000 Ml Inj (Ns 1000 M (04/29/17 15:50) Sodium Chlor 0.9% 1000 Ml Inj (Ns 1000 M (04/29/17 15:50) Sodium Chlor 0.9% 1000 Ml Inj (Ns 1000 M (04/29/17 15:50) Urine Culture (04/29/17 15:14) Admit Order (Ed Use Only) (04/29/17 ) Juice Scaleman / Telemetry CATINA.Q8H (04/29/17 16:08) Vital Signs (Adult) Q4H (04/29/17 16:08) Diet Heart Healthy (04/29/17 Dinner) Activity Bed Rest (04/29/17 16:08) Notify Dr: Other (04/29/17 16:08) Labs Laboratory Tests Test 04/29/17 14:40 04/29/17 15:14 White Blood Count 1.9 TH/MM3 Red Blood Count 4.06 MIL/MM3 Hemoglobin 12.9 GM/DL Hematocrit 38.6 % Mean Corpuscular Volume 95.1 FL Mean Corpuscular Hemoglobin 31.8 PG Mean Corpuscular Hemoglobin Concent 33.4 % Red Cell Distribution Width 15.8 % Platelet Count 350 TH/MM3 Mean Platelet Volume 7.8 FL Neutrophils (%) (Auto) 93.8 % Lymphocytes (%) (Auto) 4.4 % Monocytes (%) (Auto) 0.5 % Eosinophils (%) (Auto) 0.9 % Basophils (%) (Auto) 0.4 % Neutrophils # (Auto) 1.8 TH/MM3 Lymphocytes # (Auto) 0.1 TH/MM3 Monocytes # (Auto) 0.0 TH/MM3 Eosinophils # (Auto) 0.0 TH/MM3 Basophils # (Auto) 0.0 TH/MM3 CBC Comment AUTO DIFF Differential Total Cells Counted 100 Neutrophils % (Manual) 62 % Band Neutrophils % 26 % Lymphocytes % 9 % Eosinophils % 1 % Neutrophils # (Manual) 1.7 TH/MM3 Metamyelocytes 2 % Differential Comment FINAL DIFF MANUAL Platelet Estimate NORMAL Platelet Morphology Comment CLUMPED Blood Urea Nitrogen 25 MG/DL Creatinine 1.28 MG/DL Random Glucose 103 MG/DL Total Protein 7.7 GM/DL Albumin 3.0 GM/DL Calcium Level 8.9 MG/DL Alkaline Phosphatase 106 U/L Aspartate Amino Transf (AST/SGOT) 20 U/L Alanine Aminotransferase (ALT/SGPT) 24 U/L Total Bilirubin 0.6 MG/DL Sodium Level 140 MEQ/L Potassium Level 4.0 MEQ/L Chloride Level 106 MEQ/L Carbon Dioxide Level 25.0 MEQ/L Anion Gap 9 MEQ/L Estimat Glomerular Filtration Rate 56 ML/MIN Lactic Acid Level 3.3 mmol/L Troponin I LESS THAN 0.02 NG/ML Urine Color YELLOW Urine Turbidity HAZY Urine pH 6.5 Urine Specific [place] 1.013 Urine Protein TRACE mg/dL Urine Glucose (UA) NEG mg/dL Urine Ketones NEG mg/dL Urine Occult Blood NEG Urine Nitrite NEG Urine Bilirubin NEG Urine Urobilinogen 2.0 MG/DL Urine Leukocyte Esterase LARGE Urine RBC 2 /hpf Urine WBC 79 /hpf Urine Squamous Epithelial Cells 4 /hpf Urine Bacteria MOD /hpf Urine Mucus FEW /lpf Microscopic Urinalysis Comment CATH-CULTURE IND MDM Medical Decision Making Medical Screen Exam Complete: Yes Emergency Medical Condition: Yes Medical Record Reviewed: Yes (h/o HTN, COPD, HL, previous PE, paraplegia) Interpretation(s) EKG shows a sinus rhythm with a rate of 98. No ST segment elevation or depression noted. Differential Diagnosis Differential diagnosis of weakness includes but is not limited to infection, CVA , electrolyte disturbance, renal failure, hypoglycemia, UTI, ACS, acute blood loss Narrative Course This patient presents with acute chills, headache and jaw pain. He is tachycardic and tachypneic. I have initiated a septic evaluation. Last Impressions Chest X-Ray 04/29/17 1409 Signed Impressions: Service Date/Time: , April 29, 2017 14:16 - CONCLUSION: 1. Small right pleural effusion and associated right lower lobe airspace disease. Cristiano Briceno MD Rocephin and Zithromax have been ordered. CBC & BMP Diagram 04/29/17 14:40 Total Protein 7.7, Albumin 3.0 L, Calcium Level 8.9, Alkaline Phosphatase 106, Aspartate Amino Transf (AST/SGOT) 20, Alanine Aminotransferase (ALT/SGPT) 24, Total Bilirubin 0.6 trop < 0.02 LA 3.3 He meets severe sepsis criteria. Antibiotics have guarding and ordered. I have now ordered fluids. Critical Care Narrative Aggregate critical care time was minutes. Time to perform other separately billable procedures was not included in the critical care time. My time did not include minutes spent treating any other patients simultaneously or on activities that did not directly contribute to the patient's treatment. The services I provided to this patient were to treat and/or prevent clinically significant deterioration due to severe sepsis I provided critical care services requiring my management, as noted below: Chart data review, documentation time, medication orders and management, vital sign assessments/reviewing monitor data, ordering and reviewing lab tests, ordering and interpreting/reviewing x-rays and diagnostic studies, care of the patient and discussion of the patient with the admitting physicians Sepsis Criteria SIRS Criteria (2 or more): Heart rate over 90, RR > 20 or PaCO2 < 32, WBC > 26712, < 4000 or > 10% bands Sepsis Criteria (SIRS+source): Infect source susp/known Severe Sepsis (+one): Lactate >2 Criteria Outcome: Meets SIRS criteria, Meets sepsis criteria, Meets severe sepsis criteria Physician Communication Physician Communication Dr. Brice will admit Diagnosis Primary Impression: Severe sepsis Additional Impressions: Pneumonia Qualified Codes: J18.1 - Lobar pneumonia, unspecified organism Pleural effusion, right Admitting Information Admitting Physician Requests: Admit Condition: Naya Fisher MD Apr 29, 2017 14:28
--- NOTE | 2017-04-29 14:39 | RADRPT ---
EXAM DATE/TIME: 04/29/2017 14:16 [place] COMPARISON: CHEST SINGLE AP, February 12, 2017, 0:52. INDICATIONS : Shortness of breath. MEDICAL HISTORY : Myocardial infarction. Cardiovascular disease SURGICAL HISTORY : None. ENCOUNTER: Initial ACUITY: 1 day PAIN SCORE: 0/10 LOCATION: Bilateral chest FINDINGS: There is right lower lobe airspace disease and small pleural effusion. Left lung is clear. Cardiomedi astinal contours are stable. Fixation hardware again noted in the thoracic spine. CONCLUSION: 1. Small right pleural effusion and associated right lower lobe airspace disease. Cristiano Briceno MD on April 29, 2017 at 14:32 Board Certified Radiologist. This report was verified electronically.
[2017-04-29] MEDS ORDERED: AZITHROMYCIN INJ 500 MG in SODIUM CHLOR 0.9% 250 ML INJ 250 ML IV ONE (15:00)
[2017-04-29] MEDS ORDERED: cefTRIAXone INJ 2,000 MG in SODIUM CHLORIDE 0.9% INJ 100 ML IV ONE (15:00)
[2017-04-29 15:08] LABS: AUTOMATED NEUTROPHIL # 1.8 TH/MM3 (1.8-7.7); BASOPHIL % 0.4 % (0.0-2.0); EOSINOPHIL % 0.9 % (0.0-4.0); HEMATOCRIT 38.6 % (39.0-51.0); HEMOGLOBIN 12.9 GM/DL (13.0-17.0); LYMPH % 4.4 % (9.0-44.0); LYMPHOCYTE # 0.1 TH/MM3 (1.0-4.8); MEAN CELL VOLUME 95.1 FL (80.0-100.0); MEAN CORPUSCULAR HEMOGLOBIN 31.8 PG (27.0-34.0); MEAN CORPUSCULAR HGB CONC 33.4 % (32.0-36.0); MEAN PLATELET VOLUME 7.8 FL (7.0-11.0); MONO % 0.5 % (0.0-8.0); NEUT % 93.8 % (16.0-70.0); PLATELET COUNT 350 TH/MM3 (150-450); RED BLOOD COUNT 4.06 MIL/MM3 (4.50-5.90); RED CELL DISTRIBUTION WIDTH 15.8 % (11.6-17.2); WHITE BLOOD COUNT 1.9 TH/MM3 (4.0-11.0)
[2017-04-29 15:26] LABS: ALT (GPT) 24 U/L (12-78); AST (GOT) 20 U/L (15-37); BLOOD UREA NITROGEN 25 MG/DL (7-18); CALCIUM 8.9 MG/DL (8.5-10.1); CHLORIDE 106 MEQ/L (98-107); CREATININE 1.28 MG/DL (0.60-1.30); GLOMERULAR FILTRATION RATE 56 ML/MIN (>89); GLUCOSE,RANDOM 103 MG/DL (74-106); SODIUM (NA) 140 MEQ/L (136-145)
[2017-04-29 15:28] LABS: ALKALINE PHOSPHATASE 106 U/L (45-117); TOTAL BILIRUBIN ADULT 0.6 MG/DL (0.2-1.0); TOTAL PROTEIN 7.7 GM/DL (6.4-8.2)
[2017-04-29 15:29] LABS: LACTIC ACID SEPSIS PROTOCOL 3.3 mmol/L (0.4-2.0)
[2017-04-29 15:42] LABS: BANDS 26 % (0-6); LYMPHOCYTES 9 % (9-44); METAMYELOCYTES 2 % (0-1); NEUTROPHIL # MANUAL DIFF 1.7 TH/MM3 (1.8-7.7); POLYS (SEG NEUTROPHILS) 62 % (16-70)
[2017-04-29] MEDS ORDERED: SODIUM CHLOR 0.9% 1000 ML INJ 1,000 ML IV ONE ×3 (15:50)
[2017-04-29] MEDS ORDERED: SODIUM CHLOR 0.9% 1000 ML INJ 900 ML IV ONE (15:50)
[2017-04-29 16:06] LABS: BACTERIA, URINE MOD /hpf; BILIRUBIN, URINE NEG (NEG); BLOOD, URINE NEG (NEG); GLUCOSE,URINE NEG (NEG); KETONE, URINE NEG (NEG); MUCUS URINE FEW /lpf (OCC); NITRITE,URINE NEG (NEG); PH, URINE 6.5 (5.0-8.5); SQUAMOUS EPITHELIAL CELL URINE 4 /hpf (0-5); URINE COLOR YELLOW (YELLW/STRAW); URINE LEUKOCYTE ESTERASE LARGE (NEG)
[2017-04-29] MEDS ORDERED: guaiFENesin/CODEINE SYRUP 200 MG/20 MG/10 ML CUP PO PRN (16:15)
[2017-04-29] MEDS ORDERED: RESP: ALBUTEROL 2.5 MG/IPRATROPIUM 0.5 MG NEB (PRN) INH (16:15)
[2017-04-29] MEDS ORDERED: SODIUM CHLORIDE 0.9% FLUSH 10 ML FLUSH IV FLUSH PRN (16:15)
[2017-04-29] MEDS: SODIUM CHLOR 0.9% 1000 ML INJ 1,000 ML IV SCH (16:41)
[2017-04-29] MEDS ORDERED: ONDANSETRON HCL 4 MG/2 ML VIAL IVP PRN (16:45)
[2017-04-29] MEDS ORDERED: NALOXONE HCL 0.4 MG/ML AMP IV PUSH PRN (16:45)
[2017-04-29] MEDS ORDERED: MAGNESIUM HYDROXIDE SUSP 30 ML CUP PO PRN (16:45)
[2017-04-29] MEDS ORDERED: SENNOSIDES 8.6 MG TAB PO PRN (16:45)
[2017-04-29] MEDS ORDERED: LACTULOSE SYRUP 20 GM/30 ML CUP PO PRN (16:45)
[2017-04-29] MEDS ORDERED: BISACODYL 10 MG SUPP RECTAL PRN (16:45)
[2017-04-29] MEDS ORDERED: ACETAMINOPHEN 325 MG TAB PO PRN ×2 (16:45)
--- NOTE | 2017-04-29 16:53 | HHI.HP ---
[facility] Jerson Keller MD Admission Diagnosis sepsis, pneumonia Diagnoses: Chief Complaint: Chills Travel History International Travel<30 Days: Yes Contact w/Intl Traveler <30 Da: [place] Traveled to: [facility] Traveled to Known Affected Are: No Sepsis Criteria SIRS Criteria (2 or more): Heart rate over 90, RR > 20 or PaCO2 < 32, WBC > 82786, < 4000 or > 10% bands Sepsis Criteria (SIRS+source): Infect source susp/known Severe Sepsis (+one): Lactate >2 Criteria Outcome: Meets severe sepsis criteria History of Present Illness This is a 66-year-old male with a history of hypertension, COPD, hyperlipidemia , PE on Coumadin, paraplegia, coronary artery disease status post PR, GERD and anxiety. A she was brought in by his because of acute onset of feeling warm, chills, nausea, right jaw pain and mild frontal headache scale of 5 out of 10. Hours prior to admission. He took Tylenol and at this time patient denies any symptoms. Denies cough, shortness of breath, abdominal pain, back pain, diarrhea and urinary changes. No strong order. In the emergency department, he received fluid bolus, IV Rocephin and Zithromax for severe sepsis secondary to pneumonia. History of septic shock in June 2015. Other systems reviewed negative Review of Systems Except as stated in HPI: all other systems reviewed are Neg Past Family Social History Past Medical History As previously mentioned Past Surgical History Cholecystectomy, cataract surgery and thoracic spine surgery Reported Medications Patient not able to recall his medicines except Coumadin. not available to confirm Allergies: Coded Allergies: No Known Allergies (Unverified , 12/18/16) Family History Coronary artery disease Social History Occasional alcohol use. Doesn't smoke. Physical Exam Vital Signs Vital Signs Date Time Temp Pulse Resp B/P (MAP) Pulse Ox O2 Delivery O2 Flow Rate FiO2 04/29/17 14:12 98.8 106 28 114/65 (81) 95 Room Air Physical Exam GENERAL: This is an obese, well-developed patient, in no apparent distress. SKIN: No rashes, ecchymoses or lesions. Cool and dry. HEAD: Atraumatic. Normocephalic. No temporal or scalp tenderness. EYES: Pupils equal round and reactive. Extraocular motions intact. No scleral icterus. No injection or drainage. ENT: Nose without bleeding, purulent drainage or septal hematoma. Throat without erythema, tonsillar hypertrophy or exudate. Uvula midline. Airway patent. No tenderness of the dental structures and jaw NECK: Trachea midline. No JVD or lymphadenopathy. Supple, nontender, no meningeal signs. CARDIOVASCULAR: Regular rate and rhythm without murmurs, gallops, or rubs. RESPIRATORY: Decreased Breath sounds equal bilaterally. Scattered rhonchi GASTROINTESTINAL: Abdomen soft, non-tender, nondistended. No guarding. MUSCULOSKELETAL: Extremities without clubbing, cyanosis but with bilateral lower extremity trace pitting edema. No joint tenderness, effusion, or edema noted. NEUROLOGICAL: Awake and alert. Cranial nerves II through XII intact. Baseline paraplegia. Normal speech Laboratory Laboratory Tests Test 04/29/17 14:40 04/29/17 15:14 White Blood Count 1.9 Red Blood Count 4.06 Hemoglobin 12.9 Hematocrit 38.6 Mean Corpuscular Volume 95.1 Mean Corpuscular Hemoglobin 31.8 Mean Corpuscular Hemoglobin Concent 33.4 Red Cell Distribution Width 15.8 Platelet Count 350 Mean Platelet Volume 7.8 Neutrophils (%) (Auto) 93.8 Lymphocytes (%) (Auto) 4.4 Monocytes (%) (Auto) 0.5 Eosinophils (%) (Auto) 0.9 Basophils (%) (Auto) 0.4 Neutrophils # (Auto) 1.8 Lymphocytes # (Auto) 0.1 Monocytes # (Auto) 0.0 Eosinophils # (Auto) 0.0 Basophils # (Auto) 0.0 CBC Comment AUTO DIFF Differential Total Cells Counted 100 Neutrophils % (Manual) 62 Band Neutrophils % 26 Lymphocytes % 9 Eosinophils % 1 Neutrophils # (Manual) 1.7 Metamyelocytes 2 Differential Comment FINAL DIFF MANUAL Platelet Estimate NORMAL Platelet Morphology Comment CLUMPED Blood Urea Nitrogen 25 Creatinine 1.28 Random Glucose 103 Total Protein 7.7 Albumin 3.0 Calcium Level 8.9 Alkaline Phosphatase 106 Aspartate Amino Transf (AST/SGOT) 20 Alanine Aminotransferase (ALT/SGPT) 24 Total Bilirubin 0.6 Sodium Level 140 Potassium Level 4.0 Chloride Level 106 Carbon Dioxide Level 25.0 Anion Gap 9 Estimat Glomerular Filtration Rate 56 Lactic Acid Level 3.3 Troponin I LESS THAN 0.02 Urine Color YELLOW Urine Turbidity HAZY Urine pH 6.5 Urine Specific [place] 1.013 Urine Protein TRACE Urine Glucose (UA) NEG Urine Ketones NEG Urine Occult Blood NEG Urine Nitrite NEG Urine Bilirubin NEG Urine Urobilinogen 2.0 Urine Leukocyte Esterase LARGE Urine RBC 2 Urine WBC 79 Urine Squamous Epithelial Cells 4 Urine Bacteria MOD Urine Mucus FEW Microscopic Urinalysis Comment CATH-CULTURE IND Date/Time Source Procedure Growth Status 04/29/17 14:40 Blood Peripheral Aerobic Blood Culture Pending Received 04/29/17 14:40 Blood Peripheral Anaerobic Blood Culture Pending Received 04/29/17 15:14 Urine Catheterized Urine Urine Culture Pending Received Result Diagram: 04/29/17 1440 04/29/17 1440 Imaging Last Impressions Chest X-Ray 04/29/17 1409 Signed Impressions: Service Date/Time: , April 29, 2017 14:16 - CONCLUSION: 1. Small right pleural effusion and associated right lower lobe airspace disease. MD Jeff Burns VTE Risk Assessment Caprini VTE Risk Assessment: Mod/High Risk (score >= 2) Caprini Risk Assessment Model Point Value = 1 Point Value = 2 Point Value = 3 Point Value = 5 Age 41-60 Minor surgery BMI > 25 kg/m2 Swollen legs Varicose veins or History of unexplained or recurrent spontaneous Oral contraceptives or hormone replacement Sepsis (< 1 month) Serious lung disease, including pneumonia (< 1 month) Abnormal pulmonary function Acute myocardial infarction Congestive heart failure (< 1 month) History of inflammatory bowel disease Medical patient at bed rest Age 61-74 Arthroscopic surgery Major open surgery (> 45 min) Laparoscopic surgery (> 45 min) Malignancy Confined to bed (> 72 hours) Immobilizing plaster cast Central venous access Age >= 75 History of VTE Family history of VTE Factor V Leiden Prothrombin [id number] Lupus anticoagulant Anticardiolipin antibodies Elevated serum homocysteine Heparin-induced thrombocytopenia Other congenital or acquired thrombophilia Stroke (< 1 month) Elective arthroplasty Hip, pelvis, or leg fracture Acute spinal cord injury (< 1 month) Prophylaxis Regimen Total Risk Factor Score Risk Level Prophylaxis Regimen 0-1 Low Early ambulation 2 Moderate Order ONE of the following: *Sequential Compression Device (SCD) *Heparin 5000 units SQ BID 3-4 Higher Order ONE of the following medications: *Heparin 5000 units SQ TID *Enoxaparin/Lovenox 40 mg SQ daily (WT < 150 kg, CrCl > 30 mL/min) *Enoxaparin/Lovenox 30 mg SQ daily (WT < 150 kg, CrCl > 10-29 mL/min) *Enoxaparin/Lovenox 30 mg SQ BID (WT < 150 kg, CrCl > 30 mL/min) AND/OR *Sequential Compression Device (SCD) 5 or more Highest Order ONE of the following medications: *Heparin 5000 units SQ TID (Preferred with Epidurals) *Enoxaparin/Lovenox 40 mg SQ daily (WT < 150 kg, CrCl > 30 mL/min) *Enoxaparin/Lovenox 30 mg SQ daily (WT < 150 kg, CrCl > 10-29 mL/min) *Enoxaparin/Lovenox 30 mg SQ BID (WT < 150 kg, CrCl > 30 mL/min) AND *Sequential Compression Device (SCD) Assessment and Plan Problem List: (1) Severe sepsis ICD Code: A41.9 - Sepsis, unspecified organism; R65.20 - Severe sepsis without septic shock Status: Acute (2) Pneumonia ICD Code: J18.9 - Pneumonia, unspecified organism Status: Acute Assessment and Plan This is a 66-year-old male who presents with acute onset of feeling warm, chills , nausea, right jaw pain and mild frontal headache. Chest x-ray image interpreted by me with right pleural effusion and airspace disease. He also has abnormal urinalysis with leukocytosis and leukocyte esterase. He requires chronic catheterization secondary to paraplegia. History of septic shock in June 2015. Severe sepsis with pneumonia and possible UTI in the patient requires catheterization. Patient received fluid boluses and stat IV Rocephin and Zithromax in the emergency department. Tinea IV Rocephin and Zithromax for. Follow-up blood culture, obtain sputum culture, pneumococcal and Legionella urinary antigen and flu antigen. Nebulizations and oxygen as needed Neutropenia secondary to sepsis. Monitor Chronic medical conditions of hypertension, COPD, hyperlipidemia, PE on Coumadin , paraplegia, coronary artery disease status post PR, GERD and anxiety. Continue outpatient medications as appropriate when med list confirmed. Check INR DVT prophylaxis with SCD and Coumadin Code Status Full Discussed Condition With pt and ER staff Problem Qualifiers (1) Pneumonia: Qualified Codes: J18.1 - Lobar pneumonia, unspecified organism Rivera Brice MD Apr 29, 2017 16:53
[2017-04-29 17:23] LABS: INTERNATIONAL NORMALIZED RATIO 2.5 RATIO; PROTHROMBIN TIME - PATIENT 24.8 SEC (9.8-11.6)
[2017-04-29] MEDS ORDERED: WARF-21 PO (17:34)
[2017-04-29] MEDS ORDERED: WARF-23 PO (17:34)
[2017-04-29] MEDS ORDERED: BACLOFEN 20 MG TAB PO PRN (17:45)
[2017-04-29] MEDS ORDERED: WARFARIN SOD 7.5 MG TAB PO SCH (17:45)
[2017-04-29] MEDS ORDERED: ENALAPRILAT 1.25 MG/ML VIAL IV PUSH PRN (17:45)
[2017-04-29] MEDS ORDERED: WARFARIN SOD 7.5 MG TAB PO ONE (18:00)
[2017-04-29] MEDS: WARFARIN SOD 5 MG TAB PO SCH (18:45)
[2017-04-29] MEDS: DOCUSATE SODIUM 50 MG/SENNA 8.6 MG TAB PO SCH (21:00)
[2017-04-29] MEDS: SODIUM CHLORIDE 0.9% FLUSH 10 ML FLUSH IV FLUSH SCH (21:00)
[2017-04-29] MEDS: GABAPENTIN 100 MG CAP PO SCH (21:13)
[2017-04-30] VITALS (10 sets, daily range): BP systolic 92–159; BP diastolic 52–70; PULSE 91–98; RESP 18–22; TEMP 97.3–98.3; O2SAT 95–98
[2017-04-30] MEDS: SODIUM CHLOR 0.9% 1000 ML INJ 1,000 ML IV SCH ×3 (02:22→21:59)
[2017-04-30] MEDS ORDERED: cefTRIAXone INJ 1,000 MG in SODIUM CHLORIDE 0.9% INJ 100 ML IV SCH (08:00)
[2017-04-30] MEDS: GABAPENTIN 100 MG CAP PO SCH ×2 (08:23→21:58)
[2017-04-30] MEDS: ALLOPURINOL 300 MG TAB PO SCH (08:24)
[2017-04-30] MEDS: DOCUSATE SODIUM 50 MG/SENNA 8.6 MG TAB PO SCH ×2 (08:25→21:00)
[2017-04-30] MEDS: SODIUM CHLORIDE 0.9% FLUSH 10 ML FLUSH IV FLUSH SCH ×2 (08:25→21:58)
[2017-04-30] MEDS: ESCITALOPRAM OXALATE 10 MG TAB PO SCH (08:25)
[2017-04-30] MEDS ORDERED: AZITHROMYCIN INJ 500 MG in SODIUM CHLOR 0.9% 250 ML INJ 250 ML IV SCH (09:00)
[2017-04-30] MEDS ORDERED: RESP: ALBUTEROL 2.5 MG/3 ML NEB (PRN) INH (10:00)
[2017-04-30 11:15] LABS: AUTOMATED NEUTROPHIL # 33.3 TH/MM3 (1.8-7.7); BASOPHIL % 0.1 % (0.0-2.0); HEMATOCRIT 32.3 % (39.0-51.0); LYMPH % 1.3 % (9.0-44.0); LYMPHOCYTE # 0.5 TH/MM3 (1.0-4.8); MEAN CELL VOLUME 94.9 FL (80.0-100.0); MEAN CORPUSCULAR HEMOGLOBIN 32.3 PG (27.0-34.0); MEAN PLATELET VOLUME 8.2 FL (7.0-11.0); MONO % 4.6 % (0.0-8.0); MONOCYTE # 1.6 TH/MM3 (0-0.9); PLATELET COUNT 288 TH/MM3 (150-450); RED CELL DISTRIBUTION WIDTH 15.5 % (11.6-17.2); WHITE BLOOD COUNT 35.4 TH/MM3 (4.0-11.0)
[2017-04-30 11:18] LABS: INTERNATIONAL NORMALIZED RATIO 2.1 RATIO; PROTHROMBIN TIME - PATIENT 21.4 SEC (9.8-11.6)
[2017-04-30 11:42] LABS: BICARBONATE 20.1 MEQ/L (21.0-32.0); CALCIUM 7.9 MG/DL (8.5-10.1); CREATININE 1.45 MG/DL (0.60-1.30)
[2017-04-30] MEDS: FLUTICASONE PROPIONATE 50 MCG/ACT 16 GM NASAL SPRAY NASAL SCH (11:52)
[2017-04-30 12:22] LABS: BANDS 37 % (0-6); DOHLE BODIES PRESENT (NONE SEEN); LYMPHOCYTES 1 % (9-44); METAMYELOCYTES 3 % (0-1); MONOCYTES 2 % (0-8); NEUTROPHIL # MANUAL DIFF 34.3 TH/MM3 (1.8-7.7); POLYS (SEG NEUTROPHILS) 57 % (16-70); TOXIC GRANULATION 1+ (NORMAL)
--- NOTE | 2017-04-30 13:37 | HHI.PR ---
Subjective Remarks Follow-up sepsis, pneumonia, UTI and COPD. Complained of shortness of breath and wheezing this morning. Patient has gram-negative yasir bacteremia. Seen with . Discussed with RN Objective Vitals Vital Signs Date Time Temp Pulse Resp B/P (MAP) Pulse Ox O2 Delivery O2 Flow Rate FiO2 04/30/17 08:30 Nasal Cannula 2.00 04/30/17 08:00 98.3 96 18 100/52 (68) 96 04/30/17 08:00 98 04/30/17 07:40 96 Nasal Cannula 2.00 04/30/17 06:03 97 Nasal Cannula 2.00 04/30/17 05:52 98.0 92 21 101/54 (70) 97 04/30/17 04:00 2.00 04/30/17 00:56 98.0 94 21 92/54 (67) 95 04/30/17 00:00 Nasal Cannula 2.00 04/29/17 23:44 82 04/29/17 21:45 97.5 96 21 96/54 (68) 95 04/29/17 21:08 94 04/29/17 21:00 Nasal Cannula 2.00 04/29/17 20:20 04/29/17 20:00 95 20 150/70 (96) 96 Nasal Cannula 2.00 04/29/17 16:45 98.6 104 22 155/76 (102) 92 Nasal Cannula 2.00 04/29/17 14:12 98.8 106 28 114/65 (81) 95 Room Air I/O 04/29/17 04/29/17 04/29/17 04/30/17 04/30/17 04/30/17 07:00 15:00 23:00 07:00 15:00 23:00 Intake Total 3350 ml 378 ml Balance 3350 ml 378 ml Intake IV Total 3350 ml 378 ml Result Diagram: 04/30/17 1026 04/30/17 1026 Imaging Last Impressions Chest X-Ray 04/29/17 1409 Signed Impressions: Service Date/Time: April 14:16 - CONCLUSION: 1. Small right pleural effusion and associated right lower lobe airspace disease. Cristiano Briceno MD Objective Remarks GENERAL: This is an obese, well-developed patient, in no apparent distress nasal cannula. SKIN: No rashes, ecchymoses or lesions. Flushed cheeks CARDIOVASCULAR: Regular rate and rhythm without murmurs, gallops, or rubs. RESPIRATORY: Decreased Breath sounds equal bilaterally. GASTROINTESTINAL: Abdomen soft, non-tender, nondistended. No guarding. MUSCULOSKELETAL: Extremities without clubbing, cyanosis but with bilateral lower extremity trace pitting edema. No joint tenderness, effusion, or edema noted. NEUROLOGICAL: Awake and alert. Cranial nerves II through XII intact. Baseline paraplegia. Normal speech Procedures none A/P Problem List: (1) Severe sepsis ICD Code: A41.9 - Sepsis, unspecified organism; R65.20 - Severe sepsis without septic shock Status: Acute (2) Pneumonia ICD Code: J18.9 - Pneumonia, unspecified organism Status: Acute Assessment and Plan This is a 66-year-old male who presents with acute onset of feeling warm, chills , nausea, right jaw pain and mild frontal headache. Chest x-ray image interpreted by me with right pleural effusion and airspace disease. He also has abnormal urinalysis with leukocytosis and leukocyte esterase. He requires chronic catheterization secondary to paraplegia. History of septic shock in June 2015. Severe sepsis with pneumonia and complicated UTI. He has high-grade gram- negative bacteremia, gram-negative yasir in urine culture and significant leukocytosis. Switch Rocephin to IV cefepime and continue Zithromax. Negative pneumococcal and Legionella urinary antigen. Follow-up cultures and consult infectious disease Neutropenia secondary to sepsis. Now with leukocytosis. Mild renal insufficiency with acidosis. Continue IV hydration. Avoid nephrotoxins. Repeat BMP and magnesium in the morning. Chronic medical conditions of hypertension, COPD, hyperlipidemia, PE on Coumadin , paraplegia, coronary artery disease status post [place], GERD and anxiety. Continue outpatient medications as appropriate DVT prophylaxis with SCD and Coumadin Discharge Planning Not ready for discharge patient with bacteremia requiring IV antibiotics Problem Qualifiers (1) Pneumonia: Qualified Codes: J18.1 - Lobar pneumonia, unspecified organism Rivera Brice MD Apr 30, 2017 13:37
[2017-04-30] MEDS: RESP: ALBUTEROL 2.5 MG/IPRATROPIUM 0.5 MG NEB (SCH) INH ×2 (15:40→19:21)
[2017-04-30] MEDS: CEFEPIME INJ 2,000 MG in SODIUM CHLORIDE 0.9% INJ 100 ML IV SCH ×2 (16:33→23:18)
[2017-04-30] MEDS: WARFARIN SOD 5 MG TAB PO SCH (16:33)
--- NOTE | 2017-04-30 17:24 | MB ---
cc: COLLIN KUMARI MD DATE OF CONSULTATION: 04/30/2017 REQUESTING PHYSICIAN: Dr. Brice. REASON FOR CONSULTATION: Severe sepsis with gram negative bacteremia. HISTORY OF PRESENT ILLNESS: This is a 66 year-old white male who presented to the emergency department with chills, and headache and jaw pain. The patient has paraplegia, his does straight catheterizations for urine at home. In the emergency department is heart rate was 106 and the white blood cell count was 1.9 and lactic acid level 3.3. He was started on IV antibiotics and blood cultures and urine culture was sent. The urine culture has gram negative rods. Blood culture has gram-negative yasir in all four bottles with one both identified as Proteus species. The patient states this is a better. He states that he was having alot of chills before admission. He reports that the urine that they get back on straight catheterization usually is dark in the morning and then lightened up during the day but it was very cloudy on the last catheterization before he came to the hospital. He also notes that he has been feeling very thirsty. The white blood cell count today is 35.4-94% neutrophils. The patient is afebrile. He states that he feels a little better. He is upright in bed and he appears alert and has no distress. In the very good historian. He has no cough, shortness of breath or other symptoms. PAST MEDICAL HISTORY 1. Hypertension 2. Hyperlipidemia 3. COPD 4. Paraplegia 5. Coronary artery disease 6. History of myocardial infarction. 7. Gastroesophageal reflux disease. 8. Cholecystectomy 9. Cataract surgery 10. Thoracic spine surgery (T6-T7 Discectomy). 11. Appendectomy. ALLERGIES NO KNOWN DRUG ALLERGIES. MEDICATIONS 1. Ceftriaxone. 2. Azithromycin. 3. Flonase. 4. Allopurinol. 5. Lexapro 6. Katie-Colace. 7. Neurontin. 8. Zanaflex. 9. Coumadin. 10. Tylenol p.r.n. SOCIAL HISTORY . No tobacco. There is no alcohol. No illicit drugs. FAMILY HISTORY Noncontributory. REVIEW OF SYSTEMS GENERAL: Significant for chills and decreased sensation from the waist down. PHYSICAL EXAMINATION: IN GENERAL: This is a pleasant well-developed male in no acute distress. VITAL SIGNS: Temperature 98.3, blood pressure 100/52, respirations 18, heart rate 96. HEAD, EYES, EARS, NOSE, AND THROAT: Extraocular movements grossly intact, pupils reactive to light. No icterus. Oropharynx moist mucosa without lesions. NECK: Supple without adenopathy. LUNGS: Clear breath sounds bilateral slightly diminished at the bases. HEART: Regular rate and rhythm. No murmurs, rubs or gallops. ABDOMEN: Obese, soft, tympanic on percussion. Nontender. No palpable masses. RECTUM: Rectal was not performed. EXTREMITIES: No clubbing, cyanosis or edema. Skin: No rash. NEUROLOGIC: Decreased mobility from the waist down. Otherwise nonfocal. SKIN: No diffuse rash. PSYCHIATRIC: The patient is calm and cooperative. LABORATORY DATA WBC 39.35, 0.4, 94% neutrophils, hemoglobin 0.0, platelets 288, creatinine 1.45, BUN 29, estimated GFR 49, sodium 138. Liver function tests normal. Chest x-ray Small right pleural effusion and associated right lower lobe airspace disease. IMPRESSION 1. Severe sepsis due to gram-negative bacteria. 2. Urinary tract infection due to gram-negative bacteria. 3. Leukocytosis with bandemia. 4. Paraplegia. RECOMMENDATIONS 1. Continue ceftriaxone since one of the blood culture is identified as Proteus. 2. Monitor blood cultures 3. Monitor urine cultures 4. Continue to monitor white blood cell count during treatment. 5. The patient is on Zithromax which can be discontinued. The chest x-ray report a small right pleural effusion and associated right lower lobe at the airspace disease but I do not see clinical signs of pneumonia in this patient. Thank you this consultation. I will follow the patient's progress along with you and make further recommendations upon followup. Collin Kumari MD FD/filomena /12:55 PM /4:39 PM
[2017-04-30] MEDS ORDERED: WARFARIN SOD 5 MG TAB PO SCH (17:45)
[2017-04-30] MEDS: TEMAZEPAM 7.5 MG CAP PO ONE (23:00)
--- NOTE | 2017-04-30 23:19 | EKG ---
Date Performed: 04/29/2017 Time Performed: 15:00:41 PTAGE: 66 years EKG: Sinus rhythm BASELINE ARTIFACT NORMAL ECG Compared to the PREVIOUS TRACING from 02/12/17, no significant change DOCTOR: Jonathan Kuhn Interpretating Date/Time 04/30/2017 23:18:48
[2017-05-01] VITALS (13 sets, daily range): BP systolic 101–174; BP diastolic 57–91; PULSE 80–104; RESP 19–22; TEMP 97.4–98.5; O2SAT 92–97
[2017-05-01] MEDS: TEMAZEPAM 7.5 MG CAP PO ONE (02:06)
[2017-05-01] MEDS ORDERED: RESP: ALBUTEROL 2.5 MG/IPRATROPIUM 0.5 MG NEB (PRN) NEB (06:15)
[2017-05-01] MEDS: RESP: ALBUTEROL 2.5 MG/IPRATROPIUM 0.5 MG NEB (SCH) INH ×4 (07:35→19:07)
--- NOTE | 2017-05-01 08:21 | HHI.DCPOC ---
Discharge Care Plan Diagnosis: (1) UTI (urinary tract infection) Your Health Problems Are: Difficulty with ADL Exercise Tolerance Goals to Promote Your Health * To prevent worsening of your condition and complications * To maintain your health at the optimal level Directions to Meet Your Goals Take your medications as prescribed Follow your dietary instruction Follow activity as directed Keep your appointments as scheduled Take your immunizations and boosters as scheduled If your symptoms worsen call your PCP, if no PCP go to Urgent Care Center or Emergency Room Smoking is Dangerous to Your Health. Avoid second hand smoke Call the 24-hour hour crisis hotline for domestic abuse at Rivera Brice MD May 01, 2017 08:21
--- NOTE | 2017-05-01 08:22 | HHI.FF ---
Face to Face Verification Diagnosis: (1) Severe sepsis Physical Therapy Order: Evaluate and Treat, Improve ambulation, Strength and gait training I have seen patient Harry Martinez on 05/01/17. My clinical findings support the need for the requested home health care services because: Ltd mobility - disease progression I certify that my clinical findings support that this patient is homebound because: Unsafe to leave home unassisted Rivera Brice MD May 01, 2017 08:21
[2017-05-01] MEDS: DOCUSATE SODIUM 50 MG/SENNA 8.6 MG TAB PO SCH ×2 (09:00→20:20)
[2017-05-01] MEDS: ESCITALOPRAM OXALATE 10 MG TAB PO SCH (09:13)
[2017-05-01] MEDS: GABAPENTIN 100 MG CAP PO SCH ×2 (09:13→20:16)
[2017-05-01] MEDS: ALLOPURINOL 300 MG TAB PO SCH (09:13)
[2017-05-01] MEDS: SODIUM CHLORIDE 0.9% FLUSH 10 ML FLUSH IV FLUSH SCH ×2 (09:14→20:21)
[2017-05-01] MEDS: FLUTICASONE PROPIONATE 50 MCG/ACT 16 GM NASAL SPRAY NASAL SCH (09:14)
[2017-05-01] MEDS ORDERED: NALOXONE HCL 0.4 MG/ML AMP IV PUSH PRN (09:15)
[2017-05-01] MEDS ORDERED: RESP: RACEPINEPHRINE 2.25% 0.5 ML NEB NEB PRN (09:15)
[2017-05-01] MEDS ORDERED: MORPHINE SULFATE 2 MG/ML INJ IV PUSH PRN (09:15)
[2017-05-01] MEDS ORDERED: ACETAMINOPHEN/HYDROcodone 325 MG/5 MG TAB PO PRN (09:15)
[2017-05-01] MEDS: CEFEPIME INJ 2,000 MG in SODIUM CHLORIDE 0.9% INJ 100 ML IV SCH ×2 (09:19→16:23)
[2017-05-01] MEDS ORDERED: methylPREDNISolone SOD SUCC 125 MG/2 ML VIAL IV PUSH ONE (09:30)
--- NOTE | 2017-05-01 09:33 | HHI.PR ---
Subjective Remarks Follow-up sepsis. Called to evaluate secondary to respiratory distress. Patient complaining of shortness of breath and wheezing since 3 in the morning. Nonproductive cough. No fever or chills denies history of COPD or heart failure. Discussed with RN Objective Vitals Vital Signs Date Time Temp Pulse Resp B/P (MAP) Pulse Ox O2 Delivery O2 Flow Rate FiO2 05/01/17 08:09 97.4 101 19 174/91 (118) 94 05/01/17 07:37 97 Nasal Cannula 2.00 05/01/17 05:44 96 Nasal Cannula 4.00 05/01/17 04:00 98.5 104 20 114/80 (91) 97 05/01/17 04:00 89 05/01/17 00:00 80 05/01/17 00:00 Nasal Cannula 3.00 05/01/17 00:00 98.1 83 20 101/57 (72) 97 04/30/17 20:00 97.6 98 20 159/70 (99) 98 04/30/17 20:00 98 04/30/17 20:00 Nasal Cannula 3.00 04/30/17 17:14 Nasal Cannula 3.00 04/30/17 16:00 97.3 93 22 106/58 (74) 97 04/30/17 16:00 91 04/30/17 15:40 95 Nasal Cannula 2.00 04/30/17 14:00 97.8 94 20 103/60 (74) 98 04/30/17 13:48 Room Air 04/30/17 12:00 92 I/O 04/30/17 04/30/17 04/30/17 05/01/17 05/01/17 05/01/17 07:00 15:00 23:00 07:00 15:00 23:00 Intake Total 378 ml 350 ml 750 ml 120 ml Output Total 900 ml 200 ml Balance 378 ml 350 ml -150 ml -80 ml Intake Oral 750 ml 120 ml IV Total 378 ml 350 ml Output Urine Total 900 ml 200 ml # Voids 1 # Bowel Movements 1 1 Result Diagram: 04/30/17 1026 04/30/17 1026 Imaging Last Impressions Chest X-Ray 05/01/17 0000 Signed Impressions: Service Date/Time: Monday, May 01, 2017 09:19 - CONCLUSION: Increasing interstitial edema and bibasilar Tim Avalos MD FACR Objective Remarks GENERAL: This is an obese, well-developed patient, in no apparent distress nasal cannula. SKIN: No rashes, ecchymoses or lesions. Neck slight JVD CARDIOVASCULAR: Regular rate and rhythm without murmurs, gallops, or rubs. RESPIRATORY: Decreased Breath sounds specially right lung with expiratory wheezes. GASTROINTESTINAL: Abdomen soft, non-tender, nondistended. No guarding. MUSCULOSKELETAL: Extremities without clubbing, cyanosis but with bilateral lower extremity trace pitting edema. No joint tenderness, effusion, or edema noted. NEUROLOGICAL: Awake and alert. Cranial nerves II through XII intact. Baseline paraplegia. Normal speech Procedures none A/P Problem List: (1) Severe sepsis ICD Code: A41.9 - Sepsis, unspecified organism; R65.20 - Severe sepsis without septic shock Status: Acute (2) Pneumonia ICD Code: J18.9 - Pneumonia, unspecified organism Status: Acute Assessment and Plan This is a 66-year-old male who presents with acute onset of feeling warm, chills , nausea, right jaw pain and mild frontal headache. Chest x-ray image interpreted by me with right pleural effusion and airspace disease. He also has abnormal urinalysis with leukocytosis and leukocyte esterase. He requires chronic catheterization secondary to paraplegia. History of septic shock in June 2015. Respiratory distress. Patient with active wheezing history of remote smoking. Obtain stat chest x-ray and ABG. Start nebulizations, IV Solu-Medrol and racemic epi. Consult pulmonary Severe sepsis with pneumonia and complicated UTI. He has high-grade gram- negative bacteremia, gram-negative yasir in urine culture and significant leukocytosis. One culture with Proteus continue IV cefepime and discontinue Zithromax per ID recommendation. Negative pneumococcal and Legionella urinary antigen. Follow-up cultures and consult infectious disease Neutropenia secondary to sepsis. Now with leukocytosis. Mild renal insufficiency with acidosis. Continue IV hydration. Avoid nephrotoxins. Repeat BMP and magnesium in the morning. Chronic medical conditions of hypertension, COPD, hyperlipidemia, PE on Coumadin , paraplegia, coronary artery disease status post [place], GERD and anxiety. Continue outpatient medications as appropriate DVT prophylaxis with SCD and Coumadin Discharge Planning Not ready for discharge patient with bacteremia requiring IV antibiotics Problem Qualifiers (1) Pneumonia: Qualified Codes: J18.1 - Lobar pneumonia, unspecified organism Rivera Brice MD May 01, 2017 09:33
[2017-05-01 09:44] LABS: AUTOMATED NEUTROPHIL # 35.5 TH/MM3 (1.8-7.7); BASOPHIL # 0.1 TH/MM3 (0-0.2); BASOPHIL % 0.1 % (0.0-2.0); EOSINOPHIL # 0.2 TH/MM3 (0-0.4); EOSINOPHIL % 0.5 % (0.0-4.0); HEMATOCRIT 35.9 % (39.0-51.0); HEMOGLOBIN 11.8 GM/DL (13.0-17.0); LYMPH % 3.1 % (9.0-44.0); LYMPHOCYTE # 1.2 TH/MM3 (1.0-4.8); MEAN CELL VOLUME 96.4 FL (80.0-100.0); MEAN CORPUSCULAR HEMOGLOBIN 31.6 PG (27.0-34.0); MEAN CORPUSCULAR HGB CONC 32.8 % (32.0-36.0); MEAN PLATELET VOLUME 8.5 FL (7.0-11.0); MONO % 4.1 % (0.0-8.0); MONOCYTE # 1.6 TH/MM3 (0-0.9); NEUT % 92.2 % (16.0-70.0); PLATELET COUNT 288 TH/MM3 (150-450); RED BLOOD COUNT 3.72 MIL/MM3 (4.50-5.90); RED CELL DISTRIBUTION WIDTH 16.2 % (11.6-17.2); WHITE BLOOD COUNT 38.5 TH/MM3 (4.0-11.0)
--- NOTE | 2017-05-01 09:45 | RADRPT ---
EXAM DATE/TIME: 05/01/2017 09:19 [place] COMPARISON: CHEST SINGLE AP, April 29, 2017, 14:16. INDICATIONS : Shortness of breath, cough, and congestion. MEDICAL HISTORY : Myocardial infarction. Cardiovascular disease. SURGICAL HISTORY : T-Spine fusion. ENCOUNTER: Subsequent ACUITY: 3 days PAIN SCORE: 0/10 LOCATION: chest FINDINGS: Cardiomegaly with increasing interstitial edema. Persistent consolidation with minimal fluid right b ase. Minimal probable changes left base. CONCLUSION: Increasing interstitial edema and bibasilar Tim Avalos MD FACR on May 01, 2017 at 9:40 Board Certified Radiologist. This report was verified electronically.
[2017-05-01 09:53] LABS: INTERNATIONAL NORMALIZED RATIO 1.9 RATIO; PROTHROMBIN TIME - PATIENT 18.9 SEC (9.8-11.6)
[2017-05-01 10:10] LABS: BICARBONATE 22.8 MEQ/L (21.0-32.0); CALCIUM 8.4 MG/DL (8.5-10.1); CREATININE 1.04 MG/DL (0.60-1.30); MAGNESIUM 1.9 MG/DL (1.5-2.5)
[2017-05-01 10:27] LABS: BANDS 14 % (0-6); BASOPHILS 1 % (0-2); LYMPHOCYTES 6 % (9-44); MONOCYTES 11 % (0-8); NEUTROPHIL # MANUAL DIFF 31.6 TH/MM3 (1.8-7.7); POLYS (SEG NEUTROPHILS) 68 % (16-70); TOXIC GRANULATION 1+ (NORMAL)
[2017-05-01] MEDS ORDERED: FUROSEMIDE 40 MG/4 ML VIAL IV PUSH ONE (13:00)
[2017-05-01] MEDS ORDERED: POTASSIUM CHLORIDE 20 MEQ CONTROLLED RELEASE TAB PO ONE (13:00)
[2017-05-01] MEDS: ACETAMINOPHEN/HYDROcodone 325 MG/10 MG TAB PO PRN ×2 (13:39→20:22)
[2017-05-01] MEDS: WARFARIN SOD 5 MG TAB PO SCH (16:22)
[2017-05-01] MEDS: methylPREDNISolone SOD SUCC 125 MG/2 ML VIAL IV PUSH SCH ×2 (16:23→20:22)
--- NOTE | 2017-05-01 16:28 | MB ---
cc: WILD [facility] DATE OF CONSULTATION: 05/01/2017. REASON FOR CONSULTATION: Evaluation of shortness of breath and COPD. REQUESTING PHYSICIAN: Dr. Brice. HISTORY OF PRESENT ILLNESS: Mr. Martinez is a 66-year-old white male with hypertension, hyperlipidemia, pulmonary embolism also history of paraplegia. He cannot move his lower extremities. He has a history of coronary artery disease status post myocardial infarction. The patient came to the hospital with chills going on for about one hour or so. He did not have any fever. No nausea or vomiting. No cough or sputum production. The patient was evaluated in the emergency room. He was having shortness of breath and was given breathing treatment. He feels that his breathing and the wheezing got worse after that. His initial white blood cell count was 1.9, White blood cell count 35.4, hemoglobin 11, white count 32.3, MCV 94, platelet count 288,000. His sodium is 138, potassium 3.7, chloride 109, carbon dioxide 22, BUN 21, creatinine 1.04. INR is 1.9. His blood culture was positive for Proteus species and urine culture was positive for Proteus mirabilis. PAST MEDICAL HISTORY: His past medical history significant for: 1. History of paraplegia after a spine surgery. 2. Coronary artery disease. 3. COPD. 4. Pulmonary embolism. 5. Hypertension. 6. Anxiety disorder. MEDICATIONS: He is currently takin. Solu-Medrol 60 milligrams q. 6 hours. 2. Racemic epinephrine PRN. 3. Hydrocodone for pain. 4. Morphine for pain. 5. Cefepime 2 grams q. 8 hours. 6. Flonase nasal spray. 7. Albuterol and Atrovent nebulizer treatments. 8. Tizanidine 4 milligrams at nighttime. 9. Neurontin 200 milligrams twice a day. 10. Coumadin 5 milligrams a day. ALLERGIES: NO KNOWN DRUG ALLERGIES. SOCIAL HISTORY: He is . 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 He has a remote history of smoking. FAMILY HISTORY: He is for 42 years. He has no children. REVIEW OF SYSTEMS The patient is bed-bound because of his paraplegia which happened last year. No seizure, stroke. No history of any malignancy. PHYSICAL EXAMINATION: GENERAL: A well-built and well-nourished male mild short of breath. VITAL SIGNS: Blood pressure 150/89, heart rate 99, respirations 20, temperature 97.9. HEAD, EYES, EARS, NOSE, THROAT: Pupils are equal and reactive to light. He has had bilateral cataract surgery done. Oral mucosa and nasal mucosa are normal. NECK: The neck is supple. JVP not raised. CHEST: Air entry equal bilaterally. He has bilateral expiratory rhonchi. CARDIOVASCULAR: S1-S2 normal. ABDOMEN: Abdomen soft and nondistended. Bowel sounds are present. EXTREMITIES: No edema. He has paraplegia. IMPRESSION: 1. Sepsis. 2. hypertension. 3. Urinary tract infection. 4. Acute bronchospasm. 5. Leukocytosis. 6. Paraplegia. 7. History of pulmonary embolism. PLAN: I discussed with the patient and his we will continue the IV antibiotics, Solu-Medrol, aerosol treatments, supplement his oxygen, monitor his white cell count. Further treatment will depend on the course in the hospital. Thank you, Dr. Brice, for this consultation. MD LEONOR Mchugh/EMMETT /2:52 PM /3:54 PM MTDD
[2017-05-01] MEDS ORDERED: WARFARIN SOD 2 MG TAB PO ONE (17:00)
[2017-05-02] VITALS (15 sets, daily range): BP systolic 116–163; BP diastolic 73–90; PULSE 64–94; RESP 18–22; TEMP 97.3–98; O2SAT 93–99
[2017-05-02] MEDS: CEFEPIME INJ 2,000 MG in SODIUM CHLORIDE 0.9% INJ 100 ML IV SCH ×4 (00:26→23:10)
[2017-05-02] MEDS: methylPREDNISolone SOD SUCC 125 MG/2 ML VIAL IV PUSH SCH ×4 (03:38→22:20)
[2017-05-02] MEDS: RESP: ALBUTEROL 2.5 MG/IPRATROPIUM 0.5 MG NEB (SCH) INH ×4 (07:44→19:36)
[2017-05-02] MEDS: SODIUM CHLORIDE 0.9% FLUSH 10 ML FLUSH IV FLUSH SCH ×2 (08:25→20:30)
[2017-05-02] MEDS: DOCUSATE SODIUM 50 MG/SENNA 8.6 MG TAB PO SCH ×2 (08:27→20:26)
[2017-05-02] MEDS: GABAPENTIN 100 MG CAP PO SCH ×2 (08:27→20:26)
[2017-05-02] MEDS: ESCITALOPRAM OXALATE 10 MG TAB PO SCH (08:28)
[2017-05-02] MEDS: ALLOPURINOL 300 MG TAB PO SCH (08:28)
[2017-05-02] MEDS: FLUTICASONE PROPIONATE 50 MCG/ACT 16 GM NASAL SPRAY NASAL SCH (08:28)
[2017-05-02 08:43] LABS: INTERNATIONAL NORMALIZED RATIO 2.7 RATIO
[2017-05-02 08:48] LABS: AUTOMATED NEUTROPHIL # 27.4 TH/MM3 (1.8-7.7); BASOPHIL # 0.1 TH/MM3 (0-0.2); BASOPHIL % 0.2 % (0.0-2.0); EOSINOPHIL # 0.2 TH/MM3 (0-0.4); EOSINOPHIL % 0.8 % (0.0-4.0); HEMATOCRIT 33.2 % (39.0-51.0); HEMOGLOBIN 11.2 GM/DL (13.0-17.0); LYMPH % 2.3 % (9.0-44.0); LYMPHOCYTE # 0.7 TH/MM3 (1.0-4.8); MEAN CELL VOLUME 93.8 FL (80.0-100.0); MEAN CORPUSCULAR HEMOGLOBIN 31.6 PG (27.0-34.0); MEAN CORPUSCULAR HGB CONC 33.7 % (32.0-36.0); MEAN PLATELET VOLUME 8.8 FL (7.0-11.0); MONO % 2.3 % (0.0-8.0); MONOCYTE # 0.7 TH/MM3 (0-0.9); NEUT % 94.4 % (16.0-70.0); PLATELET COUNT 237 TH/MM3 (150-450); RED BLOOD COUNT 3.54 MIL/MM3 (4.50-5.90); RED CELL DISTRIBUTION WIDTH 15.6 % (11.6-17.2); WHITE BLOOD COUNT 29.1 TH/MM3 (4.0-11.0)
[2017-05-02 09:05] LABS: BICARBONATE 24.7 MEQ/L (21.0-32.0); CALCIUM 8.5 MG/DL (8.5-10.1); CREATININE 1.03 MG/DL (0.60-1.30); MAGNESIUM 2.1 MG/DL (1.5-2.5)
--- NOTE | 2017-05-02 13:52 | HHI.PR ---
Subjective Remarks Follow-up sepsis and pulmonary edema. Improving shortness of breath currently on 4 L. Discussed with RN. Seen with . Objective Vitals Vital Signs Date Time Temp Pulse Resp B/P (MAP) Pulse Ox O2 Delivery O2 Flow Rate FiO2 05/02/17 11:52 97.8 79 18 147/89 (108) 96 05/02/17 11:38 96 Nasal Cannula 4.00 05/02/17 08:00 97.3 74 18 145/81 (102) 95 05/02/17 07:50 96 Nasal Cannula 4.00 05/02/17 05:12 Nasal Cannula 3.00 05/02/17 04:10 71 05/02/17 04:00 98.0 73 22 153/73 (99) 99 05/02/17 00:09 64 05/02/17 00:00 97.8 94 22 116/75 (89) 93 05/01/17 22:10 20 05/01/17 20:25 Nasal Cannula 3.00 05/01/17 20:06 92 05/01/17 20:00 97.8 84 22 158/62 (94) 93 05/01/17 16:24 98.1 101 19 155/84 (107) 93 05/01/17 16:00 96 05/01/17 15:02 92 Nasal Cannula 5.00 I/O 05/01/17 05/01/17 05/01/17 05/02/17 05/02/17 05/02/17 07:00 15:00 23:00 07:00 15:00 23:00 Intake Total 120 ml 110 ml 360 ml 720 ml Output Total 200 ml 1000 ml Balance -80 ml 110 ml 360 ml -280 ml Intake Oral 120 ml 360 ml 620 ml IV Total 110 ml 100 ml Output Urine Total 200 ml 1000 ml # Voids 3 # Bowel Movements 1 2 0 Result Diagram: 05/02/17 0655 05/02/17 0655 Imaging Last Impressions Chest X-Ray 05/01/17 0000 Signed Impressions: Service Date/Time: Monday, May 01, 2017 09:19 - CONCLUSION: Increasing interstitial edema and bibasilar Tim Avalos MD FACR Objective Remarks GENERAL: This is an obese, well-developed patient, in no apparent distress nasal cannula. SKIN: No rashes, ecchymoses or lesions. Neck slight JVD CARDIOVASCULAR: Regular rate and rhythm without murmurs, gallops, or rubs. RESPIRATORY: Decreased Breath sounds specially right lung with improved expiratory wheezes. GASTROINTESTINAL: Abdomen soft, non-tender, nondistended. No guarding. MUSCULOSKELETAL: Extremities without clubbing, cyanosis but with bilateral lower extremity trace pitting edema. No joint tenderness, effusion, or edema noted. NEUROLOGICAL: Awake and alert. Cranial nerves II through XII intact. Baseline paraplegia. Normal speech Procedures none A/P Problem List: (1) Severe sepsis ICD Code: A41.9 - Sepsis, unspecified organism; R65.20 - Severe sepsis without septic shock Status: Acute (2) Pneumonia ICD Code: J18.9 - Pneumonia, unspecified organism Status: Acute Assessment and Plan This is a 66-year-old male who presents with acute onset of feeling warm, chills , nausea, right jaw pain and mild frontal headache. Chest x-ray image interpreted by me with right pleural effusion and airspace disease. He also has abnormal urinalysis with leukocytosis and leukocyte esterase. He requires chronic catheterization secondary to paraplegia. History of septic shock in June 2015. Respiratory distress secondary to bronchospasm and pulmonary edema from sepsis. Improved continue nebulization, decrease IV steroids and continue IV diuresis with Lasix. Follow-up echocardiogram. Severe sepsis with complicated Proteus UTI. He has high-grade Proteus bacteremia and significant leukocytosis which is improving. Continue IV cefepime and repeat blood culture in the morning. Neutropenia secondary to sepsis. Now with leukocytosis. Mild renal insufficiency with acidosis. Improved. Avoid nephrotoxins. Repeat BMP and magnesium in the morning. Chronic medical conditions of hypertension, COPD, hyperlipidemia, PE on Coumadin , paraplegia, coronary artery disease status post ND, GERD and anxiety. Continue outpatient medications as appropriate DVT prophylaxis with SCD and Coumadin Discharge Planning Not ready for discharge patient with bacteremia requiring IV antibiotics Problem Qualifiers (1) Pneumonia: Qualified Codes: J18.1 - Lobar pneumonia, unspecified organism Rivera Brice MD May 02, 2017 13:52
[2017-05-02] MEDS: WARFARIN SOD 5 MG TAB PO SCH (15:17)
[2017-05-02] MEDS: FUROSEMIDE 20 MG/2 ML VIAL IV PUSH SCH (15:18)
--- NOTE | 2017-05-02 15:35 | HHI.PR ---
Subjective Remarks 66 YOWM with paraplegia, Sepsis,COPD exac,PE Has wheezing, improving no fever no CP Objective Vital Signs Vital Signs Date Time Temp Pulse Resp B/P (MAP) Pulse Ox O2 Delivery O2 Flow Rate FiO2 05/02/17 11:52 97.8 79 18 147/89 (108) 96 05/02/17 11:38 96 Nasal Cannula 4.00 05/02/17 08:00 97.3 74 18 145/81 (102) 95 05/02/17 07:50 96 Nasal Cannula 4.00 05/02/17 05:12 Nasal Cannula 3.00 05/02/17 04:10 71 05/02/17 04:00 98.0 73 22 153/73 (99) 99 05/02/17 00:09 64 05/02/17 00:00 97.8 94 22 116/75 (89) 93 05/01/17 22:10 20 05/01/17 20:25 Nasal Cannula 3.00 05/01/17 20:06 92 05/01/17 20:00 97.8 84 22 158/62 (94) 93 05/01/17 16:24 98.1 101 19 155/84 (107) 93 05/01/17 16:00 96 I/O 05/01/17 05/01/17 05/01/17 05/02/17 05/02/17 05/02/17 07:00 15:00 23:00 07:00 15:00 23:00 Intake Total 120 ml 110 ml 360 ml 720 ml Output Total 200 ml 1000 ml Balance -80 ml 110 ml 360 ml -280 ml Intake Oral 120 ml 360 ml 620 ml IV Total 110 ml 100 ml Output Urine Total 200 ml 1000 ml # Voids 3 # Bowel Movements 1 2 0 Result Diagram: 05/02/1765405/02/17 0655 Objective Remarks GENERAL:WBWN WM, mild sob SKIN: Warm and dry. HEAD: Normocephalic. EYES: No scleral icterus. No injection or drainage. NECK: Supple, trachea midline. No JVD or lymphadenopathy. CARDIOVASCULAR: Regular rate and rhythm without murmurs, gallops, or rubs. RESPIRATORY: Breath sounds equal bilaterally. No accessory muscle use. Exp rhonchi GASTROINTESTINAL: Abdomen soft, non-tender, nondistended. MUSCULOSKELETAL: No cyanosis, or edema. paraplegia BACK: Nontender without obvious deformity. No CVA tenderness. A/P Assessment and Plan Bronchospasm improving Sepsis Pulm Embolism Pneumonia COPD PLAN: Aerosol nebs with racemic epi IV Solumedrol Cont Abx Supplement 02 Check cultures Octavio Lobo MD May 02, 2017 15:35
[2017-05-02] MEDS: ACETAMINOPHEN/HYDROcodone 325 MG/10 MG TAB PO PRN (23:12)
[2017-05-03] VITALS (15 sets, daily range): BP systolic 149–168; BP diastolic 80–95; PULSE 54–83; RESP 20–22; TEMP 97.4–97.8; O2SAT 95–97
[2017-05-03] MEDS: methylPREDNISolone SOD SUCC 125 MG/2 ML VIAL IV PUSH SCH (05:08)
[2017-05-03] MEDS: RESP: ALBUTEROL 2.5 MG/IPRATROPIUM 0.5 MG NEB (SCH) INH (07:03)
[2017-05-03 07:21] LABS: AUTOMATED NEUTROPHIL # 21.7 TH/MM3 (1.8-7.7); BASOPHIL % 0.1 % (0.0-2.0); HEMATOCRIT 32.6 % (39.0-51.0); HEMOGLOBIN 11.2 GM/DL (13.0-17.0); LYMPH % 3.6 % (9.0-44.0); LYMPHOCYTE # 0.8 TH/MM3 (1.0-4.8); MEAN CELL VOLUME 92.7 FL (80.0-100.0); MEAN CORPUSCULAR HEMOGLOBIN 31.9 PG (27.0-34.0); MEAN CORPUSCULAR HGB CONC 34.4 % (32.0-36.0); MONO % 2.8 % (0.0-8.0); MONOCYTE # 0.7 TH/MM3 (0-0.9); NEUT % 93.5 % (16.0-70.0); PLATELET COUNT 261 TH/MM3 (150-450); RED BLOOD COUNT 3.52 MIL/MM3 (4.50-5.90); WHITE BLOOD COUNT 23.2 TH/MM3 (4.0-11.0)
[2017-05-03 07:43] LABS: CALCIUM 8.6 MG/DL (8.5-10.1); CREATININE 1.01 MG/DL (0.60-1.30); MAGNESIUM 2.4 MG/DL (1.5-2.5)
[2017-05-03 08:36] LABS: PROTHROMBIN TIME - PATIENT 55.1 SEC (9.8-11.6)
[2017-05-03 08:38] LABS: INTERNATIONAL NORMALIZED RATIO 5.5 RATIO
[2017-05-03] MEDS: FUROSEMIDE 20 MG/2 ML VIAL IV PUSH SCH (08:54)
[2017-05-03] MEDS: ESCITALOPRAM OXALATE 10 MG TAB PO SCH (08:54)
[2017-05-03] MEDS: CEFEPIME INJ 2,000 MG in SODIUM CHLORIDE 0.9% INJ 100 ML IV SCH ×3 (08:54→23:00)
[2017-05-03] MEDS: ALLOPURINOL 300 MG TAB PO SCH (08:55)
[2017-05-03] MEDS: GABAPENTIN 100 MG CAP PO SCH ×2 (08:55→20:32)
[2017-05-03] MEDS: amLODIPine BESYLATE 5 MG TAB PO SCH (08:56)
[2017-05-03] MEDS: CARVEDILOL 12.5 MG TAB PO SCH ×2 (08:56→20:32)
[2017-05-03] MEDS: DOCUSATE SODIUM 50 MG/SENNA 8.6 MG TAB PO SCH ×2 (08:56→20:33)
[2017-05-03] MEDS: FLUTICASONE PROPIONATE 50 MCG/ACT 16 GM NASAL SPRAY NASAL SCH (08:57)
[2017-05-03] MEDS: SODIUM CHLORIDE 0.9% FLUSH 10 ML FLUSH IV FLUSH SCH ×2 (08:58→20:32)
[2017-05-03 09:28] LABS: BANDS 18 % (0-6); LYMPHOCYTES 1 % (9-44); METAMYELOCYTES 1 % (0-1); POLYS (SEG NEUTROPHILS) 80 % (16-70)
--- NOTE | 2017-05-03 11:07 | HHI.IDPN ---
Note Infectious Disease Note Patient feels better. Afebrile. WBC still markedly elevated. Presented to the emergency department with chills, and headache and jaw pain. PAST MEDICAL HISTORY 1. Hypertension 2. Hyperlipidemia 3. COPD 4. Paraplegia 5. Coronary artery disease 6. History of myocardial infarction. 7. Gastroesophageal reflux disease. 8. Cholecystectomy 9. Cataract surgery 10. Thoracic spine surgery (T6-T7 Discectomy). 11. Appendectomy. ALLERGIES NO KNOWN DRUG ALLERGIES. Current Medications Medications (Trade) Dose Ordered Sig/Erna Route PRN Reason Start Time Stop Time Status Last Admin Dose Admin Sodium Chloride (NS Flush) 2 ml UNSCH PRN IV FLUSH FLUSH AFTER USING IV ACCESS 04/29/17 16:15 Sodium Chloride (NS Flush) 2 ml BID IV FLUSH 04/29/17 21:00 05/03/17 08:58 Guaifenesin/ Codeine Phosphate (Robitussin Ac 200-20 Mg/10 ml Liq) 10 ml Q4H PRN PO COUGH 04/29/17 16:15 04/29/17 17:20 Pharmacy Profile Note 0 ml @ 0 mls/hr UNSCH OTHER 04/29/17 16:45 Acetaminophen (Tylenol) 650 mg Q4H PRN PO TEMP > 100.4 04/29/17 16:45 Ondansetron HCl (Zofran Inj) 4 mg Q6H PRN IVP NAUSEA OR VOMITING 04/29/17 16:45 Acetaminophen (Tylenol) 650 mg Q6H PRN PO PAIN SCALE 1 TO 2 04/29/17 16:45 04/30/17 11:51 Naloxone HCl (Narcan Inj) 0.4 mg UNSCH PRN IV PUSH SEE LABEL COMMENTS 04/29/17 16:45 Senna/Docusate Sodium (Katie-Colace) 1 tab BID PO 04/29/17 21:00 Magnesium Hydroxide (Milk Of Magnesia Liq) 30 ml Q12H PRN PO Mild constipation 04/29/17 16:45 Sennosides (Senokot) 17.2 mg Q12H PRN PO Moderate constipation 04/29/17 16:45 Bisacodyl (Dulcolax Supp) 10 mg DAILY PRN RECTAL SEVERE CONSITIPATION 04/29/17 16:45 Lactulose (Lactulose Liq) 30 ml DAILY PRN PO SEVERE CONSITIPATION 04/29/17 16:45 Enalaprilat (Vasotec Inj) 1.25 mg Q6H PRN IV PUSH SBP> OR = 180, DBP> OR = 100 04/29/17 17:45 Allopurinol (Zyloprim) 300 mg DAILY PO 04/30/17 09:00 05/03/17 08:55 Baclofen (Lioresal) 20 mg BID PRN PO MUSCLE SPASM 04/29/17 17:45 Escitalopram Oxalate (Lexapro) 10 mg DAILY PO 04/30/17 09:00 05/03/17 08:54 Gabapentin (Neurontin) 200 mg BID PO 04/29/17 21:00 05/03/17 08:55 Tizanidine HCl (Zanaflex) 4 mg HS PO 04/29/17 21:00 05/02/17 20:27 Warfarin Sodium (Coumadin) 5 mg DAILY@1600 PO 04/29/17 18:00 Future Hold 05/02/17 15:17 Fluticasone Propionate (Flonase Yahir Spr) 2 spray DAILY NASAL 04/30/17 12:00 05/03/17 08:57 Cefepime HCl 2000 mg/Sodium Chloride 100 ml @ 200 mls/hr Q8H IV 04/30/17 16:00 05/03/17 08:54 Albuterol/ Ipratropium (Duoneb Neb) 1 ampule Q2HR NEB PRN NEB shortness of breath 05/01/17 06:15 Racepinephrine (Racepinephrine 2.25% Neb) 0.5 ml Q3HR NEB PRN NEB strdor 05/01/17 09:15 Acetaminophen/ Hydrocodone Bitart (Grove 5-325 Mg) 1 tab Q4H PRN PO PAIN SCALE 3 TO 5 05/01/17 09:15 Acetaminophen/ Hydrocodone Bitart (Grove 10-325 Mg) 1 tab Q4H PRN PO PAIN SCALE 6 TO 10 05/01/17 09:15 05/02/17 23:12 Morphine Sulfate (Morphine Inj) 1 mg Q3H PRN IV PUSH BREAKTHROUGH PAIN 05/01/17 09:15 Naloxone HCl (Narcan Inj) 0.4 mg UNSCH PRN IV PUSH SEE LABEL COMMENTS 05/01/17 09:15 Methylprednisolone Sodium Succinate (SoluMEDROL INJ) 40 mg Q8HR IV PUSH 05/02/17 14:00 05/03/17 05:08 Furosemide (Lasix Inj) 20 mg DAILY IV PUSH 05/02/17 13:45 05/03/17 08:54 Albuterol/ Ipratropium (Duoneb Neb) 1 ampule Q6HR WHILE AWAKE NEB NEB 05/03/17 14:00 Amlodipine Besylate (Norvasc) 5 mg DAILY PO 05/03/17 09:00 05/03/17 08:56 Carvedilol (Coreg) 25 mg BID PO 05/03/17 09:00 05/03/17 08:56 Vital Signs Date Time Temp Pulse Resp B/P (MAP) Pulse Ox O2 Delivery O2 Flow Rate FiO2 05/03/17 08:07 97.5 62 20 164/95 (118) 97 05/03/17 07:04 97 Nasal Cannula 3.00 05/03/17 04:00 97.7 67 20 158/87 (110) 97 05/03/17 04:00 Nasal Cannula 3.00 05/03/17 03:54 64 05/03/17 00:25 19 05/03/17 00:02 58 05/03/17 00:00 Nasal Cannula 3.00 05/03/17 00:00 97.7 67 20 149/86 (107) 95 05/02/17 20:30 Nasal Cannula 3.00 05/02/17 20:06 89 05/02/17 20:00 97.9 72 20 146/73 (97) 96 05/02/17 19:36 97 Nasal Cannula 3.00 05/02/17 16:00 97.6 81 18 163/90 (114) 95 05/02/17 15:44 74 05/02/17 11:52 97.8 79 18 147/89 (108) 96 05/02/17 11:49 75 05/02/17 11:38 96 Nasal Cannula 4.00 Laboratory Tests Test 05/02/17 06:55 05/03/17 06:22 White Blood Count 29.1 TH/MM3 23.2 TH/MM3 Red Blood Count 3.54 MIL/MM3 3.52 MIL/MM3 Hemoglobin 11.2 GM/DL 11.2 GM/DL Hematocrit 33.2 % 32.6 % Mean Corpuscular Volume 93.8 FL 92.7 FL Mean Corpuscular Hemoglobin 31.6 PG 31.9 PG Mean Corpuscular Hemoglobin Concent 33.7 % 34.4 % Red Cell Distribution Width 15.6 % 16.0 % Platelet Count 237 TH/MM3 261 TH/MM3 Mean Platelet Volume 8.8 FL 9.0 FL Neutrophils (%) (Auto) 94.4 % 93.5 % Lymphocytes (%) (Auto) 2.3 % 3.6 % Monocytes (%) (Auto) 2.3 % 2.8 % Eosinophils (%) (Auto) 0.8 % 0.0 % Basophils (%) (Auto) 0.2 % 0.1 % Neutrophils # (Auto) 27.4 TH/MM3 21.7 TH/MM3 Lymphocytes # (Auto) 0.7 TH/MM3 0.8 TH/MM3 Monocytes # (Auto) 0.7 TH/MM3 0.7 TH/MM3 Eosinophils # (Auto) 0.2 TH/MM3 0.0 TH/MM3 Basophils # (Auto) 0.1 TH/MM3 0.0 TH/MM3 CBC Comment DIFF FINAL AUTO DIFF Differential Comment FINAL DIFF MANUAL Differential Total Cells Counted 100 Neutrophils % (Manual) 80 % Band Neutrophils % 18 % Lymphocytes % 1 % Neutrophils # (Manual) 23.0 TH/MM3 Metamyelocytes 1 % Platelet Estimate NORMAL Platelet Morphology Comment NORMAL Laboratory Tests Test 05/02/17 06:55 05/03/17 06:27 Blood Urea Nitrogen 26 MG/DL 36 MG/DL Creatinine 1.03 MG/DL 1.01 MG/DL Random Glucose 157 MG/DL 179 MG/DL Calcium Level 8.5 MG/DL 8.6 MG/DL Magnesium Level 2.1 MG/DL 2.4 MG/DL Sodium Level 141 MEQ/L 143 MEQ/L Potassium Level 3.9 MEQ/L 3.7 MEQ/L Chloride Level 108 MEQ/L 111 MEQ/L Carbon Dioxide Level 24.7 MEQ/L 25.0 MEQ/L Anion Gap 8 MEQ/L 7 MEQ/L Estimat Glomerular Filtration Rate 72 ML/MIN 74 ML/MIN Microbiology Date/Time Source Procedure Growth Status 05/03/17 06:33 Blood Peripheral Aerobic Blood Culture Pending Received 05/03/17 06:33 Blood Peripheral Anaerobic Blood Culture Pending Received 05/03/17 06:27 Blood Peripheral Aerobic Blood Culture Pending Received 05/03/17 06:27 Blood Peripheral Anaerobic Blood Culture Pending Received IMAGING: Chest X-Ray 05/01/17 0000 Signed Impressions: Service Date/Time: Monday, May 01, 2017 09:19 - CONCLUSION: Increasing interstitial edema and bibasilar Tim Avalos MD FACR PHYSICAL EXAMINATION: GENERAL: This is a pleasant well-developed male in no acute distress. HEAD, EYES, EARS, NOSE, AND THROAT: Extraocular movements grossly intact, pupils reactive to light. No icterus. Oropharynx moist mucosa without lesions. NECK: Supple without adenopathy. LUNGS: Clear breath sounds bilateral slightly diminished at the bases. HEART: Regular rate and rhythm. No murmurs, rubs or gallops. ABDOMEN: Obese, soft, tympanic on percussion. Nontender. No palpable masses. EXTREMITIES: No clubbing, cyanosis or edema. Skin: No rash. NEUROLOGIC: Decreased mobility from the waist down. Otherwise nonfocal. SKIN: No diffuse rash. PSYCHIATRIC: The patient is calm and cooperative. IMPRESSION 1. Severe sepsis due to Proteus. 2. Urinary tract infection due to Proteus. Sepsis source. 3. Leukocytosis. WBC still markedly elevated. 4. Paraplegia. RECOMMENDATIONS 1. Continue Cefepime. 2. Monitor blood cultures 3. Monitor white blood. Oscar Ha MD May 03, 2017 11:07
[2017-05-03] MEDS: RESP: ALBUTEROL 2.5 MG/IPRATROPIUM 0.5 MG NEB (SCH) NEB ×2 (12:04→19:50)
--- NOTE | 2017-05-03 14:24 | HHI.PR ---
Subjective Remarks 66 YOWM with paraplegia, Sepsis,COPD exac,PE Feels much better no Wheezing no fever no CP Objective Vital Signs Vital Signs Date Time Temp Pulse Resp B/P (MAP) Pulse Ox O2 Delivery O2 Flow Rate FiO2 05/03/17 13:07 97.4 65 21 166/84 (111) 95 05/03/17 08:07 97.5 62 20 164/95 (118) 97 05/03/17 08:00 54 05/03/17 07:04 97 Nasal Cannula 3.00 05/03/17 07:00 97 Nasal Cannula 2.00 05/03/17 04:00 97.7 67 20 158/87 (110) 97 05/03/17 04:00 Nasal Cannula 3.00 05/03/17 03:54 64 05/03/17 00:25 19 05/03/17 00:02 58 05/03/17 00:00 Nasal Cannula 3.00 05/03/17 00:00 97.7 67 20 149/86 (107) 95 05/02/17 20:30 Nasal Cannula 3.00 05/02/17 20:06 89 05/02/17 20:00 97.9 72 20 146/73 (97) 96 05/02/17 19:36 97 Nasal Cannula 3.00 05/02/17 16:00 97.6 81 18 163/90 (114) 95 05/02/17 15:44 74 I/O 05/02/17 05/02/17 05/02/17 05/03/17 05/03/17 05/03/17 07:00 15:00 23:00 07:00 15:00 23:00 Intake Total 720 ml 600 ml 480 ml Output Total 1000 ml 500 ml Balance -280 ml 600 ml -20 ml Intake Oral 620 ml 600 ml 480 ml IV Total 100 ml Output Urine Total 1000 ml 500 ml # Voids 2 # Bowel Movements 0 0 0 Result Diagram: 05/03/1762105/03/17626 Objective Remarks GENERAL:WBWN WM, mild sob SKIN: Warm and dry. HEAD: Normocephalic. EYES: No scleral icterus. No injection or drainage. NECK: Supple, trachea midline. No JVD or lymphadenopathy. CARDIOVASCULAR: Regular rate and rhythm without murmurs, gallops, or rubs. RESPIRATORY: Breath sounds equal bilaterally. No accessory muscle use. Exp rhonchi GASTROINTESTINAL: Abdomen soft, non-tender, nondistended. MUSCULOSKELETAL: No cyanosis, or edema. paraplegia BACK: Nontender without obvious deformity. No CVA tenderness. A/P Assessment and Plan Bronchospasm improving Sepsis Pulm Embolism Pneumonia COPD PLAN: Aerosol nebs with racemic epi prn IV Solumedrol Cont Abx Supplement 02 Check cultures Octavio Lobo MD May 03, 2017 14:24
--- NOTE | 2017-05-03 14:54 | HHI.PR ---
Subjective Remarks Follow-up sepsis, UTI and bronchospasm. He is feeling better today denies shortness of breath on 2 L nasal cannula. Seen with . Discussed with RN and pulmonary Objective Vitals Vital Signs Date Time Temp Pulse Resp B/P (MAP) Pulse Ox O2 Delivery O2 Flow Rate FiO2 05/03/17 13:07 97.4 65 21 166/84 (111) 95 05/03/17 08:07 97.5 62 20 164/95 (118) 97 05/03/17 08:00 54 05/03/17 07:04 97 Nasal Cannula 3.00 05/03/17 07:00 97 Nasal Cannula 2.00 05/03/17 04:00 97.7 67 20 158/87 (110) 97 05/03/17 04:00 Nasal Cannula 3.00 05/03/17 03:54 64 05/03/17 00:25 19 05/03/17 00:02 58 05/03/17 00:00 Nasal Cannula 3.00 05/03/17 00:00 97.7 67 20 149/86 (107) 95 05/02/17 20:30 Nasal Cannula 3.00 05/02/17 20:06 89 05/02/17 20:00 97.9 72 20 146/73 (97) 96 05/02/17 19:36 97 Nasal Cannula 3.00 05/02/17 16:00 97.6 81 18 163/90 (114) 95 05/02/17 15:44 74 I/O 05/02/17 05/02/17 05/02/17 05/03/17 05/03/17 05/03/17 07:00 15:00 23:00 07:00 15:00 23:00 Intake Total 720 ml 600 ml 480 ml Output Total 1000 ml 500 ml Balance -280 ml 600 ml -20 ml Intake Oral 620 ml 600 ml 480 ml IV Total 100 ml Output Urine Total 1000 ml 500 ml # Voids 2 # Bowel Movements 0 0 0 Result Diagram: 05/03/1762105/03/1727 Imaging Last Impressions Chest X-Ray 05/01/17 0000 Signed Impressions: Service Date/Time: Monday, May 01, 2017 09:19 - CONCLUSION: Increasing interstitial edema and bibasilar Tim Avalos MD FACR Objective Remarks GENERAL: This is an obese, well-developed patient, in no apparent distress nasal cannula. SKIN: No rashes, ecchymoses or lesions. Neck slight JVD CARDIOVASCULAR: Regular rate and rhythm without murmurs, gallops, or rubs. RESPIRATORY: Decreased Breath sounds specially right lung. No expiratory wheezes. GASTROINTESTINAL: Abdomen soft, non-tender, nondistended. No guarding. MUSCULOSKELETAL: Extremities without clubbing, cyanosis but with bilateral lower extremity trace pitting edema. No joint tenderness, effusion, or edema noted. NEUROLOGICAL: Awake and alert. Cranial nerves II through XII intact. Baseline paraplegia. Normal speech Procedures none A/P Problem List: (1) Severe sepsis ICD Code: A41.9 - Sepsis, unspecified organism; R65.20 - Severe sepsis without septic shock Status: Acute (2) Pneumonia ICD Code: J18.9 - Pneumonia, unspecified organism Status: Acute Assessment and Plan This is a 66-year-old male who presents with acute onset of feeling warm, chills , nausea, right jaw pain and mild frontal headache. Chest x-ray image interpreted by me with right pleural effusion and airspace disease. He also has abnormal urinalysis with leukocytosis and leukocyte esterase. He requires chronic catheterization secondary to paraplegia. History of septic shock in June 2015. Respiratory distress secondary to bronchospasm and pulmonary edema from sepsis. Improved switch to by mouth steroids, continue nebulizations and IV diuresis with Lasix. Follow-up echocardiogram. Severe sepsis with complicated Proteus UTI. He has high-grade Proteus bacteremia and significant leukocytosis which is improving. Continue IV cefepime and repeat blood culture today. ID following Neutropenia secondary to sepsis. Now with leukocytosis. Mild renal insufficiency with acidosis. Improved. Avoid nephrotoxins. Monitor BMP Chronic medical conditions of hypertension, COPD, hyperlipidemia, PE on Coumadin , paraplegia, coronary artery disease status post GA, GERD and anxiety. Restart Coreg and Norvasc. Continue to hold lisinopril monitor BP DVT prophylaxis with SCD and Coumadin Discharge Planning Not ready for discharge patient with bacteremia requiring IV antibiotics. Does not want rehabilitation Problem Qualifiers (1) Pneumonia: Qualified Codes: J18.1 - Lobar pneumonia, unspecified organism Rivera Brice MD May 03, 2017 14:54
--- NOTE | 2017-05-03 22:01 | ECHRPT ---
Indication: EF CHF CONCLUSIONS Normal left ventricular size. Wall thickness is normal. The left ventricular systolic function is mildly reduced with an estimated ejection fraction in the range of 45- 50%. There was limited left ventricular wall motion assessment due to poor endocardial visualization. BP: / HR: Rhythm: MEASUREMENTS (Male / Female) Normal Values Technical Quality:Technically difficult study 2D ECHO LV Diastolic Diameter PLAX 4.9 cm 4.2 - 5.9 / 3.9 - 5.3 cm LV Systolic Diameter PLAX 4.0 cm IVS Diastolic Thickness 1.2 cm 0.6 - 1.0 / 0.6 - 0.9 cm LVPW Diastolic Thickness 1.0 cm 0.6 - 1.0 / 0.6 - 0.9 cm LV Relative Wall Thickness 0.4 RV Internal Dim ED PLAX 2.5 cm LA Systolic Diameter LX 4.0 cm 3.0 - 4.0 / 2.7 - 3.8 cm DOPPLER TR Peak Velocity 118.0 cm/s TR Peak Gradient 5.6 mmHg FINDINGS LEFT VENTRICLE Normal left ventricular size. Wall thickness is normal. The left ventricular systolic function is mildly reduced with an estimated ejection fraction in the range of 45- 50%. There was limited left ventricular wall motion assessment due to poor endocardial visualization. RIGHT VENTRICLE Normal right ventricular size and systolic function. LEFT ATRIUM The left atrial size is normal. RIGHT ATRIUM The right atrial size is normal. ATRIAL SEPTUM Normal atrial septal thickness without atrial level shunting by limited color doppler interrogation. AORTA The aortic root and proximal ascending aorta are normal in size on limited imaging. MITRAL VALVE Structurally normal mitral valve. No mitral valve stenosis or regurgitation. AORTIC VALVE Trileaflet aortic valve. No aortic valve stenosis or regurgitation. TRICUSPID VALVE Structurally normal tricuspid valve. No tricuspid valve stenosis or regurgitation. PULMONARY VALVE The pulmonary valve is not well visualized. VESSELS The inferior vena cava is normal in size. PERICARDIUM No pericardial effusion. Amber Mann MD, FACC (Electronically Signed) Final Date:03 May 2017 22:00
[2017-05-03] MEDS: ACETAMINOPHEN/HYDROcodone 325 MG/10 MG TAB PO PRN (23:00)
[2017-05-04] VITALS (11 sets, daily range): BP systolic 149–176; BP diastolic 78–87; PULSE 48–69; RESP 18–21; TEMP 97.3–98.1; O2SAT 95–98
[2017-05-04 07:28] LABS: PROTHROMBIN TIME - PATIENT 73.6 SEC (9.8-11.6)
[2017-05-04 07:30] LABS: AUTOMATED NEUTROPHIL # 15.4 TH/MM3 (1.8-7.7); BASOPHIL % 0.1 % (0.0-2.0); EOSINOPHIL % 0.1 % (0.0-4.0); HEMATOCRIT 33.3 % (39.0-51.0); HEMOGLOBIN 11.3 GM/DL (13.0-17.0); LYMPH % 5.6 % (9.0-44.0); MEAN CORPUSCULAR HEMOGLOBIN 31.7 PG (27.0-34.0); MEAN CORPUSCULAR HGB CONC 34.1 % (32.0-36.0); MEAN PLATELET VOLUME 8.8 FL (7.0-11.0); MONO % 6.2 % (0.0-8.0); MONOCYTE # 1.1 TH/MM3 (0-0.9); PLATELET COUNT 266 TH/MM3 (150-450); RED BLOOD COUNT 3.58 MIL/MM3 (4.50-5.90); RED CELL DISTRIBUTION WIDTH 15.8 % (11.6-17.2); WHITE BLOOD COUNT 17.5 TH/MM3 (4.0-11.0)
[2017-05-04 07:32] LABS: INTERNATIONAL NORMALIZED RATIO 7.4 RATIO
[2017-05-04 07:44] LABS: BICARBONATE 27.4 MEQ/L (21.0-32.0); CALCIUM 8.6 MG/DL (8.5-10.1); CREATININE 0.99 MG/DL (0.60-1.30); MAGNESIUM 2.5 MG/DL (1.5-2.5)
[2017-05-04 08:36] LABS: DOHLE BODIES PRESENT (NONE SEEN)
[2017-05-04 08:42] LABS: BANDS 7 % (0-6); LYMPHOCYTES 6 % (9-44); MONOCYTES 5 % (0-8); MYELOCYTES 4 % (0-0); NEUTROPHIL # MANUAL DIFF 15.6 TH/MM3 (1.8-7.7); POLYS (SEG NEUTROPHILS) 78 % (16-70)
[2017-05-04 08:43] LABS: TOXIC GRANULATION 1+ (NORMAL)
[2017-05-04] MEDS: RESP: ALBUTEROL 2.5 MG/IPRATROPIUM 0.5 MG NEB (SCH) NEB ×3 (08:56→20:32)
[2017-05-04] MEDS: DOCUSATE SODIUM 50 MG/SENNA 8.6 MG TAB PO SCH ×2 (09:00→20:59)
[2017-05-04] MEDS ORDERED: predniSONE 20 MG TAB PO SCH (09:00)
[2017-05-04] MEDS: ALLOPURINOL 300 MG TAB PO SCH (10:10)
[2017-05-04] MEDS: amLODIPine BESYLATE 5 MG TAB PO SCH (10:10)
[2017-05-04] MEDS: FUROSEMIDE 20 MG/2 ML VIAL IV PUSH SCH (10:10)
[2017-05-04] MEDS: ESCITALOPRAM OXALATE 10 MG TAB PO SCH (10:11)
[2017-05-04] MEDS: GABAPENTIN 100 MG CAP PO SCH ×2 (10:11→20:59)
[2017-05-04] MEDS: CARVEDILOL 12.5 MG TAB PO SCH ×2 (10:11→20:59)
[2017-05-04] MEDS: CEFEPIME INJ 2,000 MG in SODIUM CHLORIDE 0.9% INJ 100 ML IV SCH ×2 (10:11→15:56)
[2017-05-04] MEDS: SODIUM CHLORIDE 0.9% FLUSH 10 ML FLUSH IV FLUSH SCH ×2 (10:12→20:59)
[2017-05-04] MEDS: FLUTICASONE PROPIONATE 50 MCG/ACT 16 GM NASAL SPRAY NASAL SCH (10:12)
[2017-05-04] MEDS ORDERED: PHYTONADIONE 10 MG/ML VIAL SQ ONE (10:30)
[2017-05-04] MEDS ORDERED: amLODIPine BESYLATE 5 MG TAB PO ONE (12:00)
--- NOTE | 2017-05-04 12:12 | HHI.PR ---
Subjective Remarks INR trending up. Denies melena, hematochezia, hematuria. Denies abdominal pain, nausea or vomiting. Afebrile. Denies cp/sob Objective Vitals Vital Signs Date Time Temp Pulse Resp B/P (MAP) Pulse Ox O2 Delivery O2 Flow Rate FiO2 05/04/17 08:56 98 Nasal Cannula 4.00 05/04/17 08:00 97.5 59 20 158/84 (108) 95 05/04/17 04:00 Nasal Cannula 2.00 05/04/17 04:00 97.8 60 20 164/87 (112) 97 05/04/17 03:46 52 05/04/17 00:00 98.1 61 21 149/78 (101) 98 05/04/17 00:00 Nasal Cannula 2.00 05/03/17 23:53 55 05/03/17 20:00 97.8 69 22 168/81 (110) 95 05/03/17 20:00 Nasal Cannula 2.00 05/03/17 19:51 96 Nasal Cannula 2.00 05/03/17 19:44 67 05/03/17 16:09 97.6 83 21 149/80 (103) 95 05/03/17 16:00 74 05/03/17 13:07 97.4 65 21 166/84 (111) 95 05/03/17 12:00 60 I/O 05/03/17 05/03/17 05/03/17 05/04/17 05/04/17 05/04/17 07:00 15:00 23:00 07:00 15:00 23:00 Intake Total 480 ml 100 ml 540 ml 280 ml Output Total 500 ml 1200 ml 600 ml Balance -20 ml 100 ml -660 ml -320 ml Intake Oral 480 ml 240 ml 280 ml IV Total 100 ml 300 ml Output Urine Total 500 ml 1200 ml 600 ml # Voids 2 # Bowel Movements 0 0 0 Result Diagram: 05/04/17 0654 05/04/17 0654 Imaging Last Impressions Chest X-Ray 05/01/17 0000 Signed Impressions: Service Date/Time: Monday, May 01, 2017 09:19 - CONCLUSION: Increasing interstitial edema and bibasilar Tim Avalos MD FACR Objective Remarks AAOx3 NAD PERRLA Clear lungs BL S1S2 RRR Abdomen soft, nt, nd Procedures none Medications and IVs Current Medications Medications (Trade) Dose Ordered Sig/Erna Route Start Time Stop Time Status Last Admin (NS Flush) 2 ml UNSCH PRN IV FLUSH 04/29/17 16:15 (NS Flush) 2 ml BID IV FLUSH 04/29/17 21:00 05/04/17 10:12 (Robitussin Ac 200-20 Mg/10 ml Liq) 10 ml Q4H PRN PO 04/29/17 16:15 04/29/17 17:20 Pharmacy Profile Note 0 ml @ 0 mls/hr UNSCH OTHER 04/29/17 16:45 (Tylenol) 650 mg Q4H PRN PO 04/29/17 16:45 (Zofran Inj) 4 mg Q6H PRN IVP 04/29/17 16:45 (Tylenol) 650 mg Q6H PRN PO 04/29/17 16:45 04/30/17 11:51 (Narcan Inj) 0.4 mg UNSCH PRN IV PUSH 04/29/17 16:45 (Katie-Colace) 1 tab BID PO 04/29/17 21:00 (Milk Of Magnesia Liq) 30 ml Q12H PRN PO 04/29/17 16:45 (Senokot) 17.2 mg Q12H PRN PO 04/29/17 16:45 (Dulcolax Supp) 10 mg DAILY PRN RECTAL 04/29/17 16:45 (Lactulose Liq) 30 ml DAILY PRN PO 04/29/17 16:45 (Vasotec Inj) 1.25 mg Q6H PRN IV PUSH 04/29/17 17:45 (Zyloprim) 300 mg DAILY PO 04/30/17 09:00 05/04/17 10:10 (Lioresal) 20 mg BID PRN PO 04/29/17 17:45 (Lexapro) 10 mg DAILY PO 04/30/17 09:00 05/04/17 10:11 (Neurontin) 200 mg BID PO 04/29/17 21:00 05/04/17 10:11 (Zanaflex) 4 mg HS PO 04/29/17 21:00 05/03/17 20:32 (Coumadin) 5 mg DAILY@1600 PO 04/29/17 18:00 Future Hold 05/02/17 15:17 (Flonase Yahir Spr) 2 spray DAILY NASAL 04/30/17 12:00 05/04/17 10:12 Cefepime HCl 2000 mg/Sodium Chloride 100 ml @ 200 mls/hr Q8H IV 04/30/17 16:00 05/04/17 10:11 (Duoneb Neb) 1 ampule Q2HR NEB PRN NEB 05/01/17 06:15 (Racepinephrine 2.25% Neb) 0.5 ml Q3HR NEB PRN NEB 05/01/17 09:15 (Dodson 5-325 Mg) 1 tab Q4H PRN PO 05/01/17 09:15 (Dodson 10-325 Mg) 1 tab Q4H PRN PO 05/01/17 09:15 05/03/17 23:00 (Morphine Inj) 1 mg Q3H PRN IV PUSH 05/01/17 09:15 (Narcan Inj) 0.4 mg UNSCH PRN IV PUSH 05/01/17 09:15 (Lasix Inj) 20 mg DAILY IV PUSH 05/02/17 13:45 05/04/17 10:10 (Duoneb Neb) 1 ampule Q6HR WHILE AWAKE NEB NEB 05/03/17 14:00 05/04/17 08:56 (Norvasc) 5 mg DAILY PO 05/03/17 09:00 05/04/17 10:10 (Coreg) 25 mg BID PO 05/03/17 09:00 05/04/17 10:11 (Deltasone) 40 mg DAILY PO 05/04/17 09:00 05/04/17 10:11 A/P Problem List: (1) Severe sepsis ICD Code: A41.9 - Sepsis, unspecified organism; R65.20 - Severe sepsis without septic shock Status: Acute Plan: This is a 66-year-old male who presents with acute onset of feeling warm , chills, nausea, right jaw pain and mild frontal headache. Chest x-ray image interpreted by me with right pleural effusion and airspace disease. He also has abnormal urinalysis with leukocytosis and leukocyte esterase. He requires chronic catheterization secondary to paraplegia. History of septic shock in June 2015. Ever sepsis secondary to complicated Proteus Mirabilis UTI and pneumonia.. Present on admission, patient with leukopenia, however more than 90 and a urinary tract infection. Patient started on IV cefepime and IV azithromycin. IV azithromycin later discontinued. ID consulted on following. Repeat blood cultures obtained and negative 1. (2) Pneumonia ICD Code: J18.9 - Pneumonia, unspecified organism Status: Acute Plan: Chest x-ray showed small right pleural parapneumonic effusion and associated right lower lobe airspace disease. The patient being treated with IV cefepime. Patient currently satting 97% on 2 L nasal cannula. Continue supplemental oxygen to keep oxygen saturation more than 92%. (3) Complicated UTI (urinary tract infection) ICD Code: N39.0 - Urinary tract infection, site not specified Plan: Wound culture growing Proteus mirabilis sensitive to IV cefepime. IV antibiotics as per infectious disease. (4) Leukopenia ICD Code: D72.819 - Decreased white blood cell count, unspecified Plan: Patient with a WBC count of 1.9K on admission along with 26% band neutrophils, neutrophil 1.7. Patient's leukopenia resolved on day 2 and the patient then had a leukocytosis up to 30 5K which is now trending down. WBC count 17.5 today. Continue to monitor CBC with differential. (5) GILBERTO (acute kidney injury) ICD Code: N17.9 - Acute kidney failure, unspecified Status: Resolved Plan: Oliguric, mild AKA. Secondary to prerenal azotemia. Creatinine peaked at 1.4, treated with IV fluids and now much improved. Monitor BUN/creatinine, strict I's and O's and avoid nephrotoxins. (6) Leukocytosis ICD Code: D72.829 - Elevated white blood cell count, unspecified Plan: The patient with leukocytosis and elevated bands at 37. Cytosis likely secondary to acute infection and sepsis. Continue to monitor CBC with differential. WBC now trending down. (7) Supratherapeutic INR ICD Code: R79.1 - Abnormal coagulation profile Status: Acute Plan: INR trending up and now at 7.4. There is no evidence of bleeding. Continue to hold Coumadin and will give 1 dose of 5 mg of vitamin K subcutaneously. Continue to monitor PT/INR daily. (8) HTN (hypertension) ICD Code: I10 - Essential (primary) hypertension Status: Chronic Plan: BP has been consistently elevated in the 150s. I will increase the dose of amlodipine to 10 mg by mouth daily. Will Rx Vasotec PRN. (9) Hx of pulmonary embolus ICD Code: Z86.711 - Personal history of pulmonary embolism Plan: PAtient had Bilateral PE on 07/2016. Patient on Coumadin - hold for now due to supratherapeutic INR. Assessment and Plan VT prophylaxis: SCDs, no chemoprophylaxis since patient's INR elevated. Discharge Planning [facility] not ready for discharge, patient with bacteremia requiring IV antibiotics. Patient refuses rehabilitation. Problem Qualifiers (1) Pneumonia: Qualified Codes: J18.1 - Lobar pneumonia, unspecified organism (2) Leukopenia: (3) Leukocytosis: Qualified Codes: D72.825 - Bandemia (4) HTN (hypertension): Qualified Codes: I10 - Essential (primary) hypertension Gordo Trujillo MD May 04, 2017 12:12
[2017-05-04] MEDS: LISINOPRIL 20 MG TAB PO SCH ×2 (13:45→20:59)
[2017-05-04] MEDS ORDERED: ENALAPRILAT 1.25 MG/ML VIAL IV PUSH PRN (13:45)
[2017-05-04 16:34] LABS: HEMOGLOBIN A1C 6.1 % (4.3-6.0)
--- NOTE | 2017-05-04 17:15 | HHI.PR ---
Subjective Remarks 66 YOWM with paraplegia, Sepsis,COPD exac,PE Feels much better no Wheezing no fever no CP Good appetite Objective Vital Signs Vital Signs Date Time Temp Pulse Resp B/P (MAP) Pulse Ox O2 Delivery O2 Flow Rate FiO2 05/04/17 16:00 97.3 61 20 156/80 (105) 96 05/04/17 12:00 97.4 56 20 176/84 (114) 97 05/04/17 12:00 66 05/04/17 08:56 98 Nasal Cannula 4.00 05/04/17 08:00 51 05/04/17 08:00 97.5 59 20 158/84 (108) 95 05/04/17 07:00 95 Nasal Cannula 2.00 05/04/17 04:00 Nasal Cannula 2.00 05/04/17 04:00 97.8 60 20 164/87 (112) 97 05/04/17 03:46 52 05/04/17 00:00 98.1 61 21 149/78 (101) 98 05/04/17 00:00 Nasal Cannula 2.00 05/03/17 23:53 55 05/03/17 20:00 97.8 69 22 168/81 (110) 95 05/03/17 20:00 Nasal Cannula 2.00 05/03/17 19:51 96 Nasal Cannula 2.00 05/03/17 19:44 67 I/O 05/03/17 05/03/17 05/03/17 05/04/17 05/04/17 05/04/17 07:00 15:00 23:00 07:00 15:00 23:00 Intake Total 480 ml 100 ml 540 ml 280 ml 480 ml Output Total 500 ml 1200 ml 600 ml Balance -20 ml 100 ml -660 ml -320 ml 480 ml Intake Oral 480 ml 240 ml 280 ml 480 ml IV Total 100 ml 300 ml Output Urine Total 500 ml 1200 ml 600 ml # Voids 2 3 # Bowel Movements 0 0 0 1 Result Diagram: 05/04/1765305/04/17653 Objective Remarks GENERAL:WBWN WM, mild sob SKIN: Warm and dry. HEAD: Normocephalic. EYES: No scleral icterus. No injection or drainage. NECK: Supple, trachea midline. No JVD or lymphadenopathy. CARDIOVASCULAR: Regular rate and rhythm without murmurs, gallops, or rubs. RESPIRATORY: Breath sounds equal bilaterally. No accessory muscle use. Exp rhonchi GASTROINTESTINAL: Abdomen soft, non-tender, nondistended. MUSCULOSKELETAL: No cyanosis, or edema. paraplegia BACK: Nontender without obvious deformity. No CVA tenderness. A/P Assessment and Plan Bronchospasm improving Sepsis Pulm Embolism Pneumonia COPD PLAN: Aerosol nebs with racemic epi prn IV Solumedrol Cont Abx Supplement 02 Check cultures Wean off 02 if RA sat >90% Octavio Lobo MD May 04, 2017 17:15
[2017-05-04] MEDS: ACETAMINOPHEN/HYDROcodone 325 MG/10 MG TAB PO PRN (22:41)
[2017-05-05] VITALS (14 sets, daily range): BP systolic 168–188; BP diastolic 79–111; PULSE 49–63; RESP 18–22; TEMP 97.1–97.9; O2SAT 94–97
[2017-05-05] MEDS: CEFEPIME INJ 2,000 MG in SODIUM CHLORIDE 0.9% INJ 100 ML IV SCH ×3 (00:54→16:26)
[2017-05-05] MEDS: DOCUSATE SODIUM 50 MG/SENNA 8.6 MG TAB PO SCH ×2 (08:01→20:27)
[2017-05-05] MEDS: GABAPENTIN 100 MG CAP PO SCH ×2 (08:04→20:28)
[2017-05-05] MEDS: ALLOPURINOL 300 MG TAB PO SCH (08:04)
[2017-05-05] MEDS: SODIUM CHLORIDE 0.9% FLUSH 10 ML FLUSH IV FLUSH SCH ×2 (08:05→20:28)
[2017-05-05] MEDS: ESCITALOPRAM OXALATE 10 MG TAB PO SCH (08:05)
[2017-05-05] MEDS: predniSONE 10 MG TAB PO SCH (08:05)
[2017-05-05] MEDS: FLUTICASONE PROPIONATE 50 MCG/ACT 16 GM NASAL SPRAY NASAL SCH (08:06)
[2017-05-05] MEDS: RESP: ALBUTEROL 2.5 MG/IPRATROPIUM 0.5 MG NEB (SCH) NEB ×3 (08:21→20:09)
[2017-05-05] MEDS: FUROSEMIDE 20 MG/2 ML VIAL IV PUSH SCH (08:39)
[2017-05-05] MEDS: amLODIPine BESYLATE 5 MG TAB PO SCH (08:39)
[2017-05-05] MEDS: CARVEDILOL 12.5 MG TAB PO SCH ×2 (08:39→20:28)
[2017-05-05] MEDS: LISINOPRIL 20 MG TAB PO SCH ×2 (08:39→20:28)
[2017-05-05 08:59] LABS: AUTOMATED NEUTROPHIL # 11.1 TH/MM3 (1.8-7.7); BASOPHIL # 0.1 TH/MM3 (0-0.2); BASOPHIL % 0.5 % (0.0-2.0); EOSINOPHIL # 0.3 TH/MM3 (0-0.4); EOSINOPHIL % 2.3 % (0.0-4.0); HEMATOCRIT 35.7 % (39.0-51.0); HEMOGLOBIN 11.8 GM/DL (13.0-17.0); LYMPH % 8.3 % (9.0-44.0); LYMPHOCYTE # 1.1 TH/MM3 (1.0-4.8); MEAN CELL VOLUME 93.2 FL (80.0-100.0); MEAN CORPUSCULAR HEMOGLOBIN 30.9 PG (27.0-34.0); MEAN CORPUSCULAR HGB CONC 33.2 % (32.0-36.0); MEAN PLATELET VOLUME 8.8 FL (7.0-11.0); MONO % 5.4 % (0.0-8.0); MONOCYTE # 0.7 TH/MM3 (0-0.9); NEUT % 83.5 % (16.0-70.0); PLATELET COUNT 252 TH/MM3 (150-450); RED BLOOD COUNT 3.83 MIL/MM3 (4.50-5.90); RED CELL DISTRIBUTION WIDTH 15.6 % (11.6-17.2); WHITE BLOOD COUNT 13.3 TH/MM3 (4.0-11.0)
[2017-05-05 09:00] LABS: PROTHROMBIN TIME - PATIENT 64.5 SEC (9.8-11.6)
[2017-05-05 09:06] LABS: INTERNATIONAL NORMALIZED RATIO 6.4 RATIO
[2017-05-05 09:07] LABS: ALBUMIN 2.2 GM/DL (3.4-5.0); AST (GOT) 18 U/L (15-37); BICARBONATE 26.3 MEQ/L (21.0-32.0); BLOOD UREA NITROGEN 38 MG/DL (7-18); CALCIUM 8.4 MG/DL (8.5-10.1); CHLORIDE 108 MEQ/L (98-107); CREATININE 0.79 MG/DL (0.60-1.30); GLOMERULAR FILTRATION RATE 98 ML/MIN (>89); GLUCOSE,RANDOM 110 MG/DL (74-106); MAGNESIUM 2.3 MG/DL (1.5-2.5); SODIUM (NA) 144 MEQ/L (136-145)
[2017-05-05 09:08] LABS: ALT (GPT) 26 U/L (12-78); PHOSPHORUS 2.9 MG/DL (2.5-4.9)
[2017-05-05 09:10] LABS: ALKALINE PHOSPHATASE 82 U/L (45-117); TOTAL BILIRUBIN ADULT 0.4 MG/DL (0.2-1.0); TOTAL PROTEIN 6.3 GM/DL (6.4-8.2)
[2017-05-05] MEDS ORDERED: POTASSIUM CHLORIDE 10 MEQ CONTROLLED RELEASE TAB PO ONE (10:15)
[2017-05-05 10:52] LABS: BANDS 19 % (0-6); LYMPHOCYTES 7 % (9-44); METAMYELOCYTES 1 % (0-1); MONOCYTES 6 % (0-8); NEUTROPHIL # MANUAL DIFF 11.6 TH/MM3 (1.8-7.7); POLYS (SEG NEUTROPHILS) 67 % (16-70)
[2017-05-05 10:56] LABS: TOXIC GRANULATION 1+ (NORMAL)
--- NOTE | 2017-05-05 13:51 | HHI.PR ---
Subjective Remarks BP elevated. Breathing much improved. Denies cp/sob. Objective Vitals Vital Signs Date Time Temp Pulse Resp B/P (MAP) Pulse Ox O2 Delivery O2 Flow Rate FiO2 05/05/17 12:14 97.5 55 20 173/88 (116) 95 05/05/17 08:23 97 05/05/17 08:09 97.4 55 20 183/111 (135) 95 05/05/17 07:45 Nasal Cannula 2.00 05/05/17 04:00 97.9 60 18 173/89 (117) 97 168/80 (109) 05/05/17 04:00 Room Air 05/05/17 03:45 50 05/05/17 00:00 Room Air 05/05/17 00:00 97.4 56 18 170/81 (110) 96 05/04/17 23:48 48 05/04/17 20:34 96 Nasal Cannula 2.00 05/04/17 20:00 97.3 69 18 171/81 (111) 98 05/04/17 20:00 Nasal Cannula 2.00 05/04/17 19:47 64 05/04/17 16:00 97.3 61 20 156/80 (105) 96 05/04/17 16:00 59 I/O 05/04/17 05/04/17 05/04/17 05/05/17 05/05/17 05/05/17 07:00 15:00 23:00 07:00 15:00 23:00 Intake Total 280 ml 100 ml 780 ml 810 ml Output Total 600 ml 550 ml 750 ml Balance -320 ml 100 ml 230 ml 60 ml Intake Oral 280 ml 480 ml 810 ml IV Total 100 ml 300 ml Output Urine Total 600 ml 550 ml 750 ml # Voids 5 # Bowel Movements 0 1 1 Result Diagram: 05/05/17 0647 05/05/17 0647 Imaging Last Impressions Chest X-Ray 05/01/17 0000 Signed Impressions: Service Date/Time: Monday, May 01, 2017 09:19 - CONCLUSION: Increasing interstitial edema and bibasilar Tim Avalos MD FACR Objective Remarks AAOx3 NAD PERRLA Clear lungs BL S1S2 RRR Abdomen soft, nt, nd Procedures none Medications and IVs Current Medications Medications (Trade) Dose Ordered Sig/Erna Route Start Time Stop Time Status Last Admin (NS Flush) 2 ml UNSCH PRN IV FLUSH 04/29/17 16:15 05/05/17 00:54 (NS Flush) 2 ml BID IV FLUSH 04/29/17 21:00 05/05/17 08:05 (Robitussin Ac 200-20 Mg/10 ml Liq) 10 ml Q4H PRN PO 04/29/17 16:15 04/29/17 17:20 Pharmacy Profile Note 0 ml @ 0 mls/hr UNSCH OTHER 04/29/17 16:45 (Tylenol) 650 mg Q4H PRN PO 04/29/17 16:45 (Zofran Inj) 4 mg Q6H PRN IVP 04/29/17 16:45 (Tylenol) 650 mg Q6H PRN PO 04/29/17 16:45 04/30/17 11:51 (Narcan Inj) 0.4 mg UNSCH PRN IV PUSH 04/29/17 16:45 (Katie-Colace) 1 tab BID PO 04/29/17 21:00 (Milk Of Magnesia Liq) 30 ml Q12H PRN PO 04/29/17 16:45 (Senokot) 17.2 mg Q12H PRN PO 04/29/17 16:45 (Dulcolax Supp) 10 mg DAILY PRN RECTAL 04/29/17 16:45 (Lactulose Liq) 30 ml DAILY PRN PO 04/29/17 16:45 (Vasotec Inj) 1.25 mg Q6H PRN IV PUSH 04/29/17 17:45 (Zyloprim) 300 mg DAILY PO 04/30/17 09:00 05/05/17 08:04 (Lioresal) 20 mg BID PRN PO 04/29/17 17:45 (Lexapro) 10 mg DAILY PO 04/30/17 09:00 05/05/17 08:05 (Neurontin) 200 mg BID PO 04/29/17 21:00 05/05/17 08:04 (Zanaflex) 4 mg HS PO 04/29/17 21:00 05/04/17 20:59 (Coumadin) 5 mg DAILY@1600 PO 04/29/17 18:00 Future Hold 05/02/17 15:17 (Flonase Yahir Spr) 2 spray DAILY NASAL 04/30/17 12:00 05/05/17 08:06 Cefepime HCl 2000 mg/Sodium Chloride 100 ml @ 200 mls/hr Q8H IV 04/30/17 16:00 05/05/17 08:05 (Duoneb Neb) 1 ampule Q2HR NEB PRN NEB 05/01/17 06:15 (Racepinephrine 2.25% Neb) 0.5 ml Q3HR NEB PRN NEB 05/01/17 09:15 ([place] 5-325 Mg) 1 tab Q4H PRN PO 05/01/17 09:15 ([place] 10-325 Mg) 1 tab Q4H PRN PO 05/01/17 09:15 05/04/17 22:41 (Morphine Inj) 1 mg Q3H PRN IV PUSH 05/01/17 09:15 (Narcan Inj) 0.4 mg UNSCH PRN IV PUSH 05/01/17 09:15 (Lasix Inj) 20 mg DAILY IV PUSH 05/02/17 13:45 05/05/17 08:39 (Duoneb Neb) 1 ampule Q6HR WHILE AWAKE NEB NEB 05/03/17 14:00 05/05/17 11:58 (Coreg) 25 mg BID PO 05/03/17 09:00 05/05/17 08:39 (Norvasc) 10 mg DAILY PO 05/05/17 09:00 05/05/17 08:39 (Deltasone) 30 mg DAILY PO 05/05/17 09:00 05/05/17 08:05 (Vasotec Inj) 1.25 mg Q6H PRN IV PUSH 05/04/17 13:45 05/05/17 00:54 (Prinivil) 20 mg BID PO 05/04/17 13:45 05/05/17 08:39 Urinary Catheter: No Vascular Central Line Catheter: No A/P Problem List: (1) Severe sepsis ICD Code: A41.9 - Sepsis, unspecified organism; R65.20 - Severe sepsis without septic shock Status: Acute (2) Pneumonia ICD Code: J18.9 - Pneumonia, unspecified organism Status: Acute (3) Complicated UTI (urinary tract infection) ICD Code: N39.0 - Urinary tract infection, site not specified (4) Leukopenia ICD Code: D72.819 - Decreased white blood cell count, unspecified (5) GILBERTO (acute kidney injury) ICD Code: N17.9 - Acute kidney failure, unspecified Status: Resolved (6) Leukocytosis ICD Code: D72.829 - Elevated white blood cell count, unspecified (7) Supratherapeutic INR ICD Code: R79.1 - Abnormal coagulation profile Status: Acute (8) HTN (hypertension) ICD Code: I10 - Essential (primary) hypertension Status: Chronic (9) Hx of pulmonary embolus ICD Code: Z86.711 - Personal history of pulmonary embolism Assessment and Plan (1) Severe sepsis This is a 66-year-old male who presents with acute onset of feeling warm, chills , nausea, right jaw pain and mild frontal headache. Chest x-ray image interpreted by me with right pleural effusion and airspace disease. He also has abnormal urinalysis with leukocytosis and leukocyte esterase. He requires chronic catheterization secondary to paraplegia. History of septic shock in June 2015. Severe sepsis secondary to complicated Proteus Mirabilis UTI and pneumonia.. Present on admission, patient with leukopenia, however more than 90 and a urinary tract infection. Patient started on IV cefepime and IV azithromycin. IV azithromycin later discontinued. ID consulted on following. Repeat blood cultures obtained and negative 2. 05/05 discussed the case with Dr. Ha from infectious disease. If patient 's blood cultures are negative 72 hours then the patient IV antibiotics may be discontinued and switched to ciprofloxacin 10 days upon discharge. (2) Pneumonia Chest x-ray showed small right pleural parapneumonic effusion and associated right lower lobe airspace disease. The patient being treated with IV cefepime. Patient currently satting 97% on 2 L nasal cannula. Continue supplemental oxygen to keep oxygen saturation more than 92%. (3) Complicated UTI (urinary tract infection) Wound culture growing Proteus mirabilis sensitive to IV cefepime. Antibiotics as per infectious disease. (4) Leukopenia/leukocytosis Patient with a WBC count of 1.9K on admission along with 26% band neutrophils, neutrophil 1.7. Patient's leukopenia resolved on day 2 and the patient then had a leukocytosis up to 30 5K which is now trending down. WBC continued to trend down. Continue to monitor CBC with differential. (5) GILBERTO (acute kidney injury) Oliguric, mild GILBERTO. Secondary to prerenal azotemia. Creatinine peaked at 1.4 , treated with IV fluids and now much improved. Monitor BUN/creatinine, strict I's and O's and avoid nephrotoxins. (6) Leukocytosis The patient with leukocytosis and elevated bands at 37. Cytosis likely secondary to acute infection and sepsis. Continue to monitor CBC with differential. WBC now trending down. (7) Supratherapeutic INR INR trended up to 7.4 on 05/04/17. The patient was given vitamin K subcutaneously. No evidence of bleeding. INR trending down and today 6.4. Continue to monitor PT/INR. Continue to hold Coumadin which was held once INR started trending up. (8) HTN (hypertension) Blood pressure consistently elevated with a blood pressure of 183/111 the same. Blood pressure still elevated after a.m. medications given. Patient currently on lisinopril 20 mg by mouth daily, amlodipine 10 mg by mouth daily, Coreg 25 mg by mouth twice a day. However patient is still hypertensive. I will increase the dose of lisinopril to 40 mg by mouth daily. . (9) Hx of pulmonary embolus Patient had Bilateral PE on 07/2016. Patient on Coumadin - hold for now due to supratherapeutic INR. VT prophylaxis: SCDs, no chemoprophylaxis since patient's INR elevated. Discharge Planning Possible discharge in a.m. patient still on IV antibiotics, needs to have blood cultures negative 72 hours as per ID for proper clearance. INR still supratherapeutic. Problem Qualifiers (1) Pneumonia: Qualified Codes: J18.1 - Lobar pneumonia, unspecified organism (2) Leukopenia: (3) Leukocytosis: Qualified Codes: D72.825 - Bandemia (4) HTN (hypertension): Qualified Codes: I10 - Essential (primary) hypertension Gordo Trujillo MD May 05, 2017 13:51
--- NOTE | 2017-05-05 15:25 | HHI.PR ---
Subjective Remarks 66 YOWM with paraplegia, Sepsis,COPD exac,PE Feels much better no Wheezing no fever Good appetite Objective Vital Signs Vital Signs Date Time Temp Pulse Resp B/P (MAP) Pulse Ox O2 Delivery O2 Flow Rate FiO2 05/05/17 12:14 97.5 55 20 173/88 (116) 95 05/05/17 08:23 97 05/05/17 08:09 97.4 55 20 183/111 (135) 95 05/05/17 07:45 Nasal Cannula 2.00 05/05/17 04:00 97.9 60 18 173/89 (117) 97 168/80 (109) 05/05/17 04:00 Room Air 05/05/17 03:45 50 05/05/17 00:00 Room Air 05/05/17 00:00 97.4 56 18 170/81 (110) 96 05/04/17 23:48 48 05/04/17 20:34 96 Nasal Cannula 2.00 05/04/17 20:00 97.3 69 18 171/81 (111) 98 05/04/17 20:00 Nasal Cannula 2.00 05/04/17 19:47 64 05/04/17 16:00 97.3 61 20 156/80 (105) 96 05/04/17 16:00 59 I/O 05/04/17 05/04/17 05/04/17 05/05/17 05/05/17 05/05/17 07:00 15:00 23:00 07:00 15:00 23:00 Intake Total 280 ml 100 ml 780 ml 810 ml Output Total 600 ml 550 ml 750 ml Balance -320 ml 100 ml 230 ml 60 ml Intake Oral 280 ml 480 ml 810 ml IV Total 100 ml 300 ml Output Urine Total 600 ml 550 ml 750 ml # Voids 5 # Bowel Movements 0 1 1 Result Diagram: 05/05/17 0647 05/05/17 0647 Objective Remarks GENERAL:WBWN WM, mild sob SKIN: Warm and dry. HEAD: Normocephalic. EYES: No scleral icterus. No injection or drainage. NECK: Supple, trachea midline. No JVD or lymphadenopathy. CARDIOVASCULAR: Regular rate and rhythm without murmurs, gallops, or rubs. RESPIRATORY: Breath sounds equal bilaterally. No accessory muscle use. Exp rhonchi GASTROINTESTINAL: Abdomen soft, non-tender, nondistended. MUSCULOSKELETAL: No cyanosis, or edema. paraplegia BACK: Nontender without obvious deformity. No CVA tenderness. A/P Assessment and Plan Bronchospasm improving Sepsis Pulm Embolism Pneumonia COPD PLAN: Aerosol nebs with racemic epi prn Cont steroids Cont Abx Supplement 02 Wean off 02 if RA sat >90% Octavio Lobo MD May 05, 2017 15:25
[2017-05-05] MEDS: ACETAMINOPHEN/HYDROcodone 325 MG/10 MG TAB PO PRN (20:28)
[2017-05-06] VITALS (10 sets, daily range): BP systolic 148–201; BP diastolic 72–92; PULSE 54–73; RESP 19–21; TEMP 97.1–98.1; O2SAT 93–97
[2017-05-06] MEDS: CEFEPIME INJ 2,000 MG in SODIUM CHLORIDE 0.9% INJ 100 ML IV SCH ×2 (00:32→09:08)
[2017-05-06 07:12] LABS: AUTOMATED NEUTROPHIL # 10.6 TH/MM3 (1.8-7.7); BASOPHIL % 0.1 % (0.0-2.0); EOSINOPHIL # 0.5 TH/MM3 (0-0.4); HEMATOCRIT 38.1 % (39.0-51.0); HEMOGLOBIN 12.7 GM/DL (13.0-17.0); INTERNATIONAL NORMALIZED RATIO 3.8 RATIO; LYMPH % 10.7 % (9.0-44.0); LYMPHOCYTE # 1.4 TH/MM3 (1.0-4.8); MEAN CELL VOLUME 92.7 FL (80.0-100.0); MEAN CORPUSCULAR HEMOGLOBIN 30.9 PG (27.0-34.0); MEAN CORPUSCULAR HGB CONC 33.3 % (32.0-36.0); MEAN PLATELET VOLUME 8.7 FL (7.0-11.0); MONO % 7.1 % (0.0-8.0); NEUT % 78.1 % (16.0-70.0); PLATELET COUNT 249 TH/MM3 (150-450); PROTHROMBIN TIME - PATIENT 37.8 SEC (9.8-11.6); RED CELL DISTRIBUTION WIDTH 15.4 % (11.6-17.2); WHITE BLOOD COUNT 13.5 TH/MM3 (4.0-11.0)
[2017-05-06 07:44] LABS: ALBUMIN 2.2 GM/DL (3.4-5.0); ALT (GPT) 39 U/L (12-78); AST (GOT) 24 U/L (15-37); BLOOD UREA NITROGEN 33 MG/DL (7-18); CALCIUM 8.3 MG/DL (8.5-10.1); CHLORIDE 105 MEQ/L (98-107); CREATININE 0.74 MG/DL (0.60-1.30); GLOMERULAR FILTRATION RATE 106 ML/MIN (>89); GLUCOSE,RANDOM 100 MG/DL (74-106); MAGNESIUM 2.3 MG/DL (1.5-2.5); PHOSPHORUS 2.7 MG/DL (2.5-4.9); SODIUM (NA) 142 MEQ/L (136-145)
[2017-05-06 07:46] LABS: ALKALINE PHOSPHATASE 81 U/L (45-117); TOTAL BILIRUBIN ADULT 0.6 MG/DL (0.2-1.0); TOTAL PROTEIN 6.4 GM/DL (6.4-8.2)
[2017-05-06] MEDS: RESP: ALBUTEROL 2.5 MG/IPRATROPIUM 0.5 MG NEB (SCH) NEB ×2 (08:21→13:21)
[2017-05-06] MEDS: DOCUSATE SODIUM 50 MG/SENNA 8.6 MG TAB PO SCH (09:00)
[2017-05-06] MEDS: FUROSEMIDE 20 MG/2 ML VIAL IV PUSH SCH (09:08)
[2017-05-06] MEDS: predniSONE 10 MG TAB PO SCH (09:08)
[2017-05-06] MEDS: amLODIPine BESYLATE 5 MG TAB PO SCH (09:08)
[2017-05-06] MEDS: ESCITALOPRAM OXALATE 10 MG TAB PO SCH (09:09)
[2017-05-06] MEDS: CARVEDILOL 12.5 MG TAB PO SCH (09:09)
[2017-05-06] MEDS: ALLOPURINOL 300 MG TAB PO SCH (09:09)
[2017-05-06] MEDS: GABAPENTIN 100 MG CAP PO SCH (09:09)
[2017-05-06] MEDS: LISINOPRIL 20 MG TAB PO SCH (09:09)
[2017-05-06] MEDS: FLUTICASONE PROPIONATE 50 MCG/ACT 16 GM NASAL SPRAY NASAL SCH (09:10)
[2017-05-06] MEDS: SODIUM CHLORIDE 0.9% FLUSH 10 ML FLUSH IV FLUSH SCH (09:10)
[2017-05-06 09:14] LABS: BANDS 10 % (0-6); LYMPHOCYTES 12 % (9-44); METAMYELOCYTES 1 % (0-1); MONOCYTES 8 % (0-8); MYELOCYTES 7 % (0-0); POLYS (SEG NEUTROPHILS) 56 % (16-70)
[2017-05-06] MEDS ORDERED: POTASSIUM CHLORIDE 10 MEQ CONTROLLED RELEASE TAB PO ONE (09:15)
[2017-05-06] MEDS ORDERED: DOXAZOSIN MESYLATE 2 MG TAB PO ONE (09:30)
[2017-05-06] MEDS ORDERED: PRED10 PO (14:39)
[2017-05-06] MEDS ORDERED: AMLO5 PO (14:39)
[2017-05-06] MEDS ORDERED: CARD2TAB PO (14:39)
[2017-05-06] MEDS ORDERED: FURO20TA PO (14:39)
[2017-05-06] MEDS ORDERED: FLUT50SP NASAL (14:39)
[2017-05-06] MEDS ORDERED: METF500T PO (14:41)
[2017-05-06] MEDS ORDERED: CIPR500T2 PO (14:47)
--- NOTE | 2017-05-06 14:51 | HHI.DS ---
Discharge Summary Admission Date Apr 29, 2017 at 16:10 Discharge Date: May 06, 2017 Admitting Diagnosis sepsis, pneumonia (1) Severe sepsis ICD Code: A41.9 - Sepsis, unspecified organism; R65.20 - Severe sepsis without septic shock Diagnosis: Principal Status: Resolved (2) Pneumonia ICD Code: J18.9 - Pneumonia, unspecified organism Diagnosis: Principal Status: Resolved (3) Complicated UTI (urinary tract infection) ICD Code: N39.0 - Urinary tract infection, site not specified Diagnosis: Principal Status: Resolved (4) Leukopenia ICD Code: D72.819 - Decreased white blood cell count, unspecified Diagnosis: Principal Status: Resolved (5) GILBERTO (acute kidney injury) ICD Code: N17.9 - Acute kidney failure, unspecified Diagnosis: Principal Status: Resolved (6) Leukocytosis ICD Code: D72.829 - Elevated white blood cell count, unspecified Diagnosis: Principal Status: Acute (7) Supratherapeutic INR ICD Code: R79.1 - Abnormal coagulation profile Status: Acute (8) HTN (hypertension) ICD Code: I10 - Essential (primary) hypertension Diagnosis: Principal Status: Chronic (9) Hx of pulmonary embolus ICD Code: Z86.711 - Personal history of pulmonary embolism Diagnosis: Principal Status: Chronic Procedures none Brief History - From Admission This is a 66-year-old male with a history of hypertension, COPD, hyperlipidemia , PE on Coumadin, paraplegia, coronary artery disease status post HI, GERD and anxiety. A she was brought in by his because of acute onset of feeling warm, chills, nausea, right jaw pain and mild frontal headache scale of 5 out of 10. Hours prior to admission. He took Tylenol and at this time patient denies any symptoms. Denies cough, shortness of breath, abdominal pain, back pain, diarrhea and urinary changes. No strong order. In the emergency department, he received fluid bolus, IV Rocephin and Zithromax for severe sepsis secondary to pneumonia. History of septic shock in June 2015. Other systems reviewed negative CBC/BMP: 05/06/17 0630 05/06/17 0630 Significant Findings Laboratory Tests Test 05/04/17 06:54 05/05/17 06:47 05/06/17 06:30 White Blood Count 17.5 TH/MM3 (4.0-11.0) 13.3 TH/MM3 (4.0-11.0) 13.5 TH/MM3 (4.0-11.0) Red Blood Count 3.58 MIL/MM3 (4.50-5.90) 3.83 MIL/MM3 (4.50-5.90) 4.10 MIL/MM3 (4.50-5.90) Hemoglobin 11.3 GM/DL (13.0-17.0) 11.8 GM/DL (13.0-17.0) 12.7 GM/DL (13.0-17.0) Hematocrit 33.3 % (39.0-51.0) 35.7 % (39.0-51.0) 38.1 % (39.0-51.0) Neutrophils (%) (Auto) 88.0 % (16.0-70.0) 83.5 % (16.0-70.0) 78.1 % (16.0-70.0) Lymphocytes (%) (Auto) 5.6 % (9.0-44.0) 8.3 % (9.0-44.0) Neutrophils # (Auto) 15.4 TH/MM3 (1.8-7.7) 11.1 TH/MM3 (1.8-7.7) 10.6 TH/MM3 (1.8-7.7) Monocytes # (Auto) 1.1 TH/MM3 (0-0.9) 1.0 TH/MM3 (0-0.9) Neutrophils % (Manual) 78 % (16-70) Band Neutrophils % 7 % (0-6) 19 % (0-6) 10 % (0-6) Lymphocytes % 6 % (9-44) 7 % (9-44) Neutrophils # (Manual) 15.6 TH/MM3 (1.8-7.7) 11.6 TH/MM3 (1.8-7.7) 10.0 TH/MM3 (1.8-7.7) Myelocytes 4 % (0-0) 7 % (0-0) Toxic Granulation 1+ (NORMAL) 1+ (NORMAL) Dohle Bodies PRESENT (NONE SEEN) Prothrombin Time 73.6 SEC (9.8-11.6) 64.5 SEC (9.8-11.6) 37.8 SEC (9.8-11.6) Prothromb Time International Ratio 7.4 RATIO 6.4 RATIO Blood Urea Nitrogen 44 MG/DL (7-18) 38 MG/DL (7-18) 33 MG/DL (7-18) Random Glucose 154 MG/DL (74-106) 110 MG/DL (74-106) Chloride Level 111 MEQ/L (98-107) 108 MEQ/L (98-107) Estimat Glomerular Filtration Rate 75 ML/MIN (>89) Hemoglobin A1c 6.1 % (4.3-6.0) Total Protein 6.3 GM/DL (6.4-8.2) Albumin 2.2 GM/DL (3.4-5.0) 2.2 GM/DL (3.4-5.0) Calcium Level 8.4 MG/DL (8.5-10.1) 8.3 MG/DL (8.5-10.1) Eosinophils # (Auto) 0.5 TH/MM3 (0-0.4) Eosinophils % 6 % (0-4) Potassium Level 3.3 MEQ/L (3.5-5.1) Imaging Last Impressions Chest X-Ray 05/01/17 0000 Signed Impressions: Service Date/Time: Monday, May 01, 2017 09:19 - CONCLUSION: Increasing interstitial edema and bibasilar Tim Avalos MD FACR PE at Discharge AAOx3 NAD PERRLA Clear lungs BL S1S2 RRR Abdomen soft, nt, nd Pt update on day of discharge The patient states that his breathing status is much improved. Denies fevers, chills, cough. Denies nausea, vomiting or abdominal pain. Patient noticed to be hyperglycemic, hemoglobin A1c ordered and it showed hemoglobin A1c which is elevated at 6.1. The patient is prediabetic. Patient will be started on metformin on discharge. Patient will be discharged on Ciprofloxacin x 10 days as per ID recommendations. Patient also advised to hold Coumadin and to resume once INR falls down in between level 2 to 3. Script for outpatient INR provided on DC. Pt Condition on Discharge: Stable Discharge Disposition: Discharge to SNF Discharge Instructions DIET: Follow Instructions for: Heart Healthy Diet Activities you can perform: Regular-No Restrictions, See Additionl Instruction Other Activity Instructions: OOB with assistance as per PT instructions. Follow up Referrals: PCP Follow-up - 1 Week New Medications: Metformin (Metformin) 500 Mg Tab 500 MG PO BIDPC for Blood Sugar Management, #60 TAB 0 Refills Amlodipine (Norvasc) 5 Mg Tab 10 MG PO DAILY for Blood Pressure Management, #31 TAB Doxazosin (Cardura) 2 Mg Tab 2 MG PO DAILY for Blood Pressure Management, #31 TAB Fluticasone Nasal [place] (Fluticasone Nasal [place]) 50 Mcg/Act Naspr 2 SPRAY NASAL DAILY for Shortness of Breath, #1 BOTTLE 50 mcg/spray Furosemide (Furosemide) 20 Mg Tab 20 MG PO DAILY for Shortness of Breath, #31 TAB Prednisone (Prednisone) 10 Mg Tab 10 MG PO BID for Shortness of Breath, #6 TAB Continued Medications: Allopurinol (Allopurinol) 300 Mg Tab 300 MG PO DAILY for Gout, #30 TAB 0 Refills Baclofen (Baclofen) 20 Mg Tab 20 MG PO BID PRN for MUSCLE SPASM, TAB 0 Refills Carvedilol (Carvedilol) 25 Mg Tab 25 MG PO BID, #60 TAB 0 Refills Escitalopram (Escitalopram) 10 Mg Tab 10 MG PO DAILY, #30 TAB 0 Refills Gabapentin (Gabapentin) 100 Mg Cap 200 MG PO BID, #120 CAP 0 Refills Lisinopril (Lisinopril) 20 Mg Tab 20 MG PO BID, #30 TAB 0 Refills Tizanidine (Tizanidine) 4 Mg Cap 4 MG PO HS for Muscle Spasm, #30 CAP 0 Refills Discontinued Medications: Amlodipine (Amlodipine) 5 Mg Tab 5 MG PO DAILY for Blood Pressure Management, #30 TAB 0 Refills Warfarin (Warfarin) 5 Mg Tab 5 MG PO SuTuWeFrSa for Blood Clot Prevention, #30 TAB 0 Refills Warfarin (Warfarin) 7.5 Mg Tab 7.5 MG PO Wed, [place] for Blood Clot Prevention, #30 TAB 0 Refills Gordo Trujillo MD May 06, 2017 14:51
[2017-05-06] MEDS ORDERED: predniSONE 10 MG TAB PO SCH (21:00)
[2017-05-07] MEDS ORDERED: FUROSEMIDE 20 MG TAB PO SCH (09:00)
[2017-05-07] MEDS ORDERED: DOXAZOSIN MESYLATE 2 MG TAB PO SCH (09:00)
== END 2017-05-06 17:35 | disposition home health service (06) | DRG 871 ==
LOC: NEPE 14:03 → NEDA 16:10 → N04A 20:35
PROVIDERS: ADMIT Hospitalist; ATTEND Hospitalist
DX: A41.59 Other Gram-negative sepsis (principal); J18.9 Pneumonia, unspecified organism; N17.9 Acute kidney failure, unspecified; J90 Pleural effusion, not elsewhere classified; E87.2 Acidosis; J81.1 Chronic pulmonary edema; J44.0 Chronic obstructive pulmonary disease with (acute) lower respiratory infection; G82.20 Paraplegia, unspecified; D70.3 Neutropenia due to infection; R34 Anuria and oliguria; N39.0 Urinary tract infection, site not specified; J44.1 Chronic obstructive pulmonary disease with (acute) exacerbation; I10 Essential (primary) hypertension; E78.5 Hyperlipidemia, unspecified; F41.9 Anxiety disorder, unspecified; H91.90 Unspecified hearing loss, unspecified ear; K21.9 Gastro-esophageal reflux disease without esophagitis; R00.0 Tachycardia, unspecified; R06.03 Acute respiratory distress; I25.10 Atherosclerotic heart disease of native coronary artery without angina pectoris; J98.01 Acute bronchospasm; R79.1 Abnormal coagulation profile; R73.03 Prediabetes; B96.4 Proteus (mirabilis) (morganii) as the cause of diseases classified elsewhere; R65.20 Severe sepsis without septic shock; I25.2 Old myocardial infarction; Z86.711 Personal history of pulmonary embolism; Z87.891 Personal history of nicotine dependence; Z79.01 Long term (current) use of anticoagulants
CPT/HCPCS: 71010; 80048; 80053; 81001; 83036; 83605; 83735; 83880; 84100; 84484; 85007; 85025; 85027; 85610; 87040; 87077; 87086; 87186; 87205; 87449; 93005; 93308; 94150; 94640; 94664; 96374; J0456; J0692; J0696; J1940; J2930; J3430; J7030; J7050; J7512; J7613; P9612